=== PATIENT | female | born 1950 | race Caucasian/White ===

== ENCOUNTER → 2016-05-09 | Outpatient (CLI) | payer BC ==
[~2016-05-09] MED LIST: APIX5TAB PO; ARMOUR PO; CEFD300C3 PO; DILT180C54 PO; DILT180C84 PO; GUAI-370 PO; HYDR-3816 PO; LEVO112T55 PO; LEVO125T6 PO; METO-270 PO; RANI75TA21 PO; THYR180T2 PO; THYR30TA2 PO
--- OUTSIDE RECORDS SUMMARY | 2016-05-09 05:50 | XMS REPORT | Continuity of Care Document ---
Author Author [facility] Organization [facility] Address Unknown Phone Unavailable Care Team Providers Care Lion Trainer Name Role Phone Self, Isaak PCP [phone] Source Comments Some departments are not documenting in the electronic medical record. If you do not see the information that you expected, contact Release of Information in the Health Information Management department at [phone] for further assistance in locating additional records.[facility] Active Allergies and Adverse Reactions Allergen Noted Date Severity Reactions Comments Adhesive 03/25/2014 SEE COMMENTS takes skin off Amoxicillin 03/25/2014 HIVES Sulfa (Sulfonamide 03/25/2014 RASH Antibiotics) Current Medications Prescription Sig. Disp. Refills Start End Date Status Date thyroid (ARMOUR THYROID) Take 180 mg by mouth Active 180 mg tablet daily. 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
== END ==
LOC: LAB 05:43
PROVIDERS: ATTEND Internal Medicine Endocrinology, Diabetes & Metabolism
DX: E03.9 Hypothyroidism, unspecified (principal)
CPT/HCPCS: 36415; 84443

== ENCOUNTER 2016-07-29 10:24 | Outpatient (CLI) | payer BC ==
[~2016-07-29] VITALS: Ht 162.6 cm; Wt 119.7 kg
[~2016-07-29 10:24] MED LIST changes: -DILT180C54 PO; -HYDR-3816 PO; -LEVO125T6 PO
[2016-07-29 10:35] VITALS: BP 137/70
[2016-07-29] MEDS ORDERED: DILT180C54 PO (10:43)
[2016-07-29] MEDS ORDERED: APIX5TAB PO (10:43)
[2016-07-29] MEDS ORDERED: LEVO125T6 PO (10:43)
== END 2016-07-29 10:55 | disposition home or self-care (01) ==
LOC: PREOP 10:24
PROVIDERS: ATTEND Orthopaedic Surgery
DX: Z01.810 Encounter for preprocedural cardiovascular examination (principal); Z11.2 Encounter for screening for other bacterial diseases; M23.8X1 Other internal derangements of right knee; M23.41 Loose body in knee, right knee
CPT/HCPCS: 87081; 93005

== ENCOUNTER 2016-08-03 08:14 | Day surgery (SDC) | payer BC ==
--- NOTE | 2016-07-29 14:05 | HISTORY AND PHYSICAL ---
DATE OF SERVICE: HISTORY OF PRESENT ILLNESS: The patient is a 66-year-old female with complaints of right knee pain. She reports catching and locking in her knee. She reports swelling. She reports it has been progressive in nature to the point where it is limiting her activities of daily living. She has tried rest as well as activity modification without relief. Due to functional impairment and failure to improve with conservative measures, the patient has elected to proceed with surgical intervention. REVIEW OF SYSTEMS: No chest pain, no shortness of breath, no dysuria. PAST MEDICAL HISTORY: Urinary frequency, diarrhea, goiter, hypothyroidism, reflux. PAST SURGICAL HISTORY: x 2, tubal ligation, cholecystectomy, partial thyroidectomy, sinus surgery, knee arthroplasty, endometrial biopsy. FAMILY HISTORY: Significant for cardiovascular disease, breast cancer, diabetes, hypothyroidism. PRIMARY CARE PHYSICIAN: Dr. King in [place]. MEDICATIONS: Synthroid, Cartia, Eliquis, Zantac. ALLERGIES: AMOXICILLIN, SULFA, TAPE AND STEROIDS. SOCIAL HISTORY: The patient is a 10-pack a year smoker who quit in 1981. She drinks alcohol rarely. RADIOGRAPHS: Reveal moderate medial compartment joint space narrowing. PHYSICAL EXAMINATION: GENERAL: The patient is well-nourished, well-developed, in no acute distress. HEENT: Normocephalic, atraumatic. Pupils equal, round and reactive to light. Oropharynx is clear. NECK: Supple. No lymphadenopathy. LUNGS: Clear to auscultation bilaterally. HEART: Regular rate and rhythm. ABDOMEN: Soft, nontender, nondistended. EXTREMITIES: The patient ambulates with an antalgic gait on the right. The right knee demonstrates a moderate effusion. She is tender along the medial joint line. She has patellofemoral crepitus with range of motion of 0/4/125. No varus or valgus laxity. Negative anterior and posterior drawer. She has pain medially with Gris's maneuver. 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 PLAN: Right knee arthroscopy with chondroplasty and partial meniscectomy. The patient understands the risks, benefits, options, ramifications and recovery. Specifically, she understands this will not cure her arthritic symptoms. The patient understands and wishes to proceed. Job ID: [id number] DocumentID: [id number] Dictated Date: 07/29/2016 12:31:59 Social Service Worker Date: 07/29/2016 13:52:36 Dictated By: SANGEETHA VALLADARES MD
[~2016-08-03] VITALS: Ht 162.6 cm; Wt 119.7 kg
[~2016-08-03 08:14] MED LIST changes: +DILT180C54 PO; +LEVO125T6 PO
[2016-08-03 08:25] VITALS: BP 166/78
--- NOTE | 2016-08-03 08:29 | Progress Note-Pre Operative ---
Pre-Operative Progress Note H&P Reviewed The H&P was reviewed, patient examined and no changes noted. Date H&P Reviewed: August 03, 2016 Time H&P Reviewed: 08:29 Pre-Operative Diagnosis: RIGHT KNEE MEDIAL MENISCAL TEAR AND CHONDROMALACIA SANGEETHA VALLADARES MD August 03, 2016 08:29
--- NOTE | 2016-08-03 08:30 | Progress Note-Post Operative ---
Post-Operative Progess Note Surgeon (s)/Manager Fitness (s) Surgeon SANGEETHA VALLADARES MD Manager Fitness: Gregg Zarate Pre-Operative Diagnosis RIGHT KNEE MEDIAL MENISCAL TEAR AND CHONDROMALACIA Post-Operative Diagnosis right knee medial and lateral meniscal tears and chondromalacia of the medial femoral condyle, medial tibial plateau, lateral tibial plateau, and trochlea Procedure & Operative Findings Date of Procedure 08/03/16 Procedure Preformed/Findings right knee arthroscopic partial medial and lateral meniscectomies and chondroplasty of the medial femoral condyle, medial tibial plateau, lateral tibial plateau and trochlea Anesthesia Type GETA Estimated Blood Loss Estimated blood loss (mL): minimal Specimens/Packing Specimens Removed minimal Packing: none SANGEETHA VALLADARES MD August 03, 2016 08:30
[2016-08-03] MEDS ORDERED: fentaNYL INJECTION 100 MCG/2 ML AMP ONE ×2 (08:43→09:13)
[2016-08-03] MEDS ORDERED: FAMOTIDINE 20MG/2ML IV (PEPCID) ONE (08:44)
[2016-08-03] MEDS ORDERED: CLINDAMYCIN 600 MG/50 ML IV ONE (08:45)
[2016-08-03] MEDS: LACTATED RINGERS 1,000 ML IV PRN ×2 (08:52→10:45)
[2016-08-03] MEDS ORDERED: FAMOTIDINE 20MG/2ML IV (PEPCID) IV ONE (09:00)
[2016-08-03] MEDS ORDERED: fentaNYL INJECTION 100 MCG/2 ML AMP IV ONE (09:00)
[2016-08-03] MEDS ORDERED: MIDAZOLAM 2 MG/2 ML (VERSED) VIAL ONE (09:12)
[2016-08-03] MEDS ORDERED: proPOfol 200 MG/20 ML (DIPRIVAN) VIAL IV ONE (09:12)
[2016-08-03] MEDS ORDERED: ROCURONIUM 50 MG/5 ML (ZEMURON) VIAL IV ONE (09:12)
[2016-08-03] MEDS ORDERED: LIDOCAINE PF 2% 10 ML (XYLOCAINE) AMP ONE ×2 (09:12→10:58)
[2016-08-03] MEDS ORDERED: ONDANSETRON 4 MG/2 ML (SDV) Z0FRAN ONE (09:12)
[2016-08-03] MEDS ORDERED: LIDOCAINE JELLY 2% (XYLOCAINE) 5 ML TUBE ONE (09:12)
[2016-08-03] MEDS ORDERED: BUPIVACAINE 0.25% 30 ML (SENSORCAINE) VIAL ONE (09:20)
[2016-08-03] MEDS ORDERED: morphine PF (DURAMORPH) 10 MG/10 ML AMP ONE (09:20)
[2016-08-03] MEDS ORDERED: LACTATED RINGERS 1,000 ML IV ONE (10:41)
[2016-08-03] MEDS ORDERED: HYDROcodone/APAP 7.5 MG/325 MG (LORTAB, LORCET PLUS) TABLET PO PRN (10:45)
[2016-08-03] MEDS ORDERED: morphine INJ 10 MG/ML 1ML (SYR OR VIAL) ONE (10:50)
[2016-08-03] MEDS ORDERED: SEVOFLURANE (ULTANE) 15 ML INHAL SOLN ONE (10:58)
[2016-08-03 12:05] VITALS: BP 126/70
[2016-08-03 12:35] VITALS: BP 136/70
[2016-08-03] MEDS ORDERED: HYDR-3816 PO (12:51)
[2016-08-03 13:05] VITALS: BP 131/73
--- NOTE | 2016-08-03 14:09 | OPERATIVE REPORT ---
DATE OF SERVICE: PREOPERATIVE DIAGNOSES: 1. Right knee medial meniscal tear. 2. Right knee chondromalacia of the medial femoral condyle. 3. Right knee chondromalacia of the medial tibial plateau. POSTOPERATIVE DIAGNOSES: 1. Right knee medial meniscal tear. 2. Right knee chondromalacia of the medial femoral condyle. 3. Right knee chondromalacia of the medial tibial plateau. 4. Right knee chondromalacia of the lateral tibial plateau. 5. Right knee chondromalacia of the trochlea. 6. Right knee lateral meniscal tear. PROCEDURES: 1. Right knee arthroscopic partial medial meniscectomy. 2. Right knee arthroscopic partial lateral meniscectomy. 3. Right knee arthroscopic chondroplasty of the medial femoral condyle. 4. Right knee arthroscopic chondroplasty of the medial tibial plateau. 5. Right knee arthroscopic chondroplasty of the lateral tibial plateau. 6. Right knee arthroscopic chondroplasty of the trochlea. SURGEON: Carl Valladares MD. VENEER REDRIER: Gregg Zarate, who assisted throughout the procedure and closed the incisions. ANESTHESIA: General endotracheal by Faby Roth CRNA. TOURNIQUET TIME: Not applicable. ESTIMATED BLOOD LOSS: Minimal. DRAINS: None. COMPLICATIONS: None. POSTOPERATIVE PLAN: Routine arthroscopy protocol. The patient was transported to the recovery room awake and in stable condition. STATEMENT OF MEDICAL NECESSITY: The patient is a 66-year-old female with the complaints of right knee pain, catching, locking and swelling. She has a large effusion. She was tender along the medial joint line and had pain medially with Gris's. Radiographs revealed medial joint space narrowing. The patient understood that an arthroscopy would not fully alleviate her arthritic symptoms, but could help with her mechanical symptoms. Due to failure to improve with conservative measures, patient elected to proceed with surgical intervention. EXAMINATION UNDER ANESTHESIA: Revealed range of motion 0/0/130, negative lock, negative anterior and posterior drawer, no varus or valgus laxity, negative pivot shift. ARTHROSCOPIC FINDINGS: The patella demonstrated diffuse grade 2-3 chondral loss with no unstable chondral flaps. The trochlea demonstrating grade 4 chondral flap centrally in a 5x10 area. The medial and lateral gutters were clear. The lateral compartment demonstrated a degenerative tear of the posterior horn of the meniscus involving approximately 20% of the posterior horn and grade 2 chondral flap centrally in an 8x8 area. The ACL and PCL were intact. The medial compartment demonstrated a complex horizontal tear of the posterior horn of the medial meniscus involving approximately 1/2 of the posterior horn, in addition to a grade 3-4 chondral flap centrally over the femoral condyle in a 15x15 area and over the central portion of the tibial plateau in a 10x15 area. PROCEDURE: After risks and benefits of procedure were discussed and questions were answered, informed consent was signed and placed on the chart. The operative site was confirmed in the preoperative holding area and initialed by the surgeon. The patient was then transported to the operating room, and after adequate levels of general endotracheal anesthetic were obtained, a timeout was called confirming the operative site and examination under anesthesia was performed with the above findings noted. The right lower extremity was prepped and draped in usual sterile fashion. The knee was injected with 60 mL of fluid, and a standard inferior lateral portal was placed for the arthroscope and inflow cannula. Under direct visualization, an inferior medial portal was created and a diagnostic arthroscopy was carried out with the above findings noted. The unstable chondral flaps in the trochlea were debrided with the shaver back to a stable edge. The scope was then redirected into the lateral compartment where the unstable chondral flaps and the lateral tibial plateau were debrided with the shaver back to a stable edge and the posterior horn of the lateral meniscus was debrided with the shaver and a biter removing approximately 20% of the posterior horn. This was carefully probed with no further tearing or instability noted. The scope was then redirected into the medial compartment where the posterior horn of the medial meniscus was debrided with a biter and shaver removing approximately 1/2 of the posterior horn. This was carefully probed with no further tearing or instability noted. The unstable chondral flaps on the medial femoral condyle and medial tibial plateau were debrided with the shaver back to a stable edge. The knee was copiously irrigated. The port sites were closed with 3-0 nylon in a simple interrupted fashion. The knee was injected with Duramorph. A soft dressing was applied and the patient was transported to the recovery room awake and in stable condition. Job ID: [id number] DocumentID: [id number] Dictated Date: 08/03/2016 11:05:53 Marketing Services Specialist Date: 08/03/2016 13:23:45 Dictated By: CALR VALLADARES MD
--- NOTE | 2016-08-03 14:44 | Physical Therapy Ortho Eval ---
PT Orthopedic Evaluation Type of Surgery Knee Scope right side Prior Level of Function Current Living Status: Spouse Locomotion (Upon Admit): Independent Established Durable Medical Eq: Front Wheeled Walker Subjective Subjective Patient in bed pre tx, agrees to PT, states her right leg is mostly numb but would rate pain at 2/10. Patient states she is fairly nauseated. Entry Into Home: Stairs With Railing Steps Into Home: 4 Objective Objective right knee extension +5 degrees, flexion 80 degrees Motor Control Motor Control: Motor Control WNL ROM see above Strength NT Transfer Transfers (B, C, W/C) (FIM): 4 Gait Gait Assistive Device: FWW Weight Bearing Restriction: Weight Bearing/Tolerated Location Restriction: R LE Gait (FIM): 2 Distance: 50' Gait Level of Assist: 4 Summary/Comments Patient was nauseated during ambulation and vomited several times, she also needed to use the restroom and vomited in there too in addition to urinating. Patient declined stairs at this time, she stated that she just wants to get back to bed right now. Treatment Rendered Treatment: Therapeutic Exercises, Gait Train, Use of Ice Exercise Instruction: Quad Sets, Heel Slides, Ankle Pumps Assessment/Goals Goal Time Frame: 1 Visit Plan Treatment Plan: Discharge PT/Family Agrees to Plan: Yes Time Time In: 1410 Time Out: 1435 Total Billed Treatment Time: 25 Billed Treatment Time 1 visit EVL 15' GT 10' Yes PT/OT Therapy GCodes Therapy Functional Limitation: Physical Therapy Test(s)/Tool used to determine: Level of Assistance Scale Functional Limitation-Current Charge Code: MOBCUR Modifier: CI Functional Limitation-Goal Charge Code: MOBGOAL Modifier: CI Functional Limitation-D/C Charge Codes: MOBDC Modifier: CI BEN WYATT PT August 03, 2016 14:44
== END 2016-08-03 15:25 | disposition home or self-care (01) ==
LOC: SDC 08:14
PROVIDERS: ATTEND Orthopaedic Surgery
DX: M23.8X1 Other internal derangements of right knee (principal); M94.261 Chondromalacia, right knee; I10 Essential (primary) hypertension; I48.91 Unspecified atrial fibrillation; E03.9 Hypothyroidism, unspecified; K21.9 Gastro-esophageal reflux disease without esophagitis; Z87.891 Personal history of nicotine dependence; Z79.899 Other long term (current) drug therapy

== ENCOUNTER 2017-02-16 09:02 | Emergency (ER) | payer BC ==
[~2017-02-16] VITALS: Ht 71.1 cm; Wt 119.3 kg
[~2017-02-16 09:02] MED LIST changes: +HYDR-3816 PO; -METO-270 PO; +METO-387 PO
[2017-02-16 09:48] LABS: BASOPHILS % (AUTO) 0 % (0-10); EOSINOPHILS # (AUTO) 0.1 10^3/uL (0.0-0.3); EOSINOPHILS % (AUTO) 2 % (0-10); LYMPHOCYTES # (AUTO) 1.4 X 10^3 (1.0-4.0); LYMPHOCYTES % (AUTO) 29 % (12-44); MEAN CORPUSCULAR HEMOGLOBIN 28 PG (25-34); MEAN CORPUSCULAR HGB CONC 35 G/DL (32-36); MEAN CORPUSCULAR VOLUME 81 FL (80-99); MEAN PLATELET VOLUME 9.4 FL (7.4-10.4); MONOCYTES # (AUTO) 0.4 X 10^3 (0.0-1.0); MONOCYTES % (AUTO) 8 % (0-12); NEUTROPHILS # (AUTO) 2.9 X 10^3 (1.8-7.8); NEUTROPHILS % (AUTO) 61 % (42-75); PLATELET COUNT 215 10^3/uL (130-400); RED BLOOD COUNT 5.19 10^6/uL (4.35-5.85); RED CELL DISTRIBUTION WIDTH 13.1 % (10.0-14.5); WHITE BLOOD COUNT 4.8 10^3/uL (4.3-11.0)
[2017-02-16 10:00] LABS: BILIRUBIN,URINE NEGATIVE (NEGATIVE); KETONES,URINE NEGATIVE (NEGATIVE); LEUKOCYTE ESTERASE ,URINE NEGATIVE (NEGATIVE); NITRITE,URINE NEGATIVE (NEGATIVE); PH,URINE 5 (5-9); PROTEIN,URINE NEGATIVE (NEGATIVE); UROBILINOGEN,URINE NORMAL (NORMAL)
[2017-02-16 10:08] LABS: WBC,URINE RARE /HPF
[2017-02-16 10:13] LABS: ALANINE AMINOTRANSFERASE 19 U/L (0-55); AMYLASE 42 U/L (25-125); ANION GAP 8 MMOL/L (5-14); ASPARTATE AMINO TRANSFERASE 15 U/L (5-34); BILIRUBIN,TOTAL 1.2 MG/DL (0.1-1.0); BLOOD UREA NITROGEN 11 MG/DL (7-18); BUN/CREATININE RATIO 14; CALCIUM 8.9 MG/DL (8.5-10.1); CARBON DIOXIDE 24 MMOL/L (21-32); CHLORIDE 108 MMOL/L (98-107); CREATININE SERUM 0.81 MG/DL (0.60-1.30); GFR ESTIMATED > 60; GLUCOSE 104 MG/DL (70-105); LIPASE 11 U/L (8-78); POTASSIUM 4.1 MMOL/L (3.6-5.0); SODIUM 140 MMOL/L (135-145); TOTAL PROTEIN 6.9 GM/DL (6.4-8.2)
[2017-02-16] MEDS ORDERED: IOHEXOL 350 MG/ML 100 ML (OMNIPAQUE 350) VIAL IV ONE (10:45)
[2017-02-16] MEDS ORDERED: NS 100 ML (IVPB) BAG IV ONE (10:45)
--- NOTE | 2017-02-16 11:12 | Diagnostic Imaging Report ---
INDICATION: Right lower quadrant pain. 3 views were obtained. FINDINGS: The lung bases are clear. Bowel gas pattern is nonspecific. There is no free air. There are no abnormal abdominal calcifications. There are degenerative changes in the spine. There is moderate amount of retained fecal material which may reflect some degree of constipation. IMPRESSION: Moderate amount of retained fecal material which may reflect some degree of constipation otherwise nonspecific bowel gas pattern. Dictated by: Dictated on workstation # [id number]
--- NOTE | 2017-02-16 11:51 | Diagnostic Imaging Report ---
PROCEDURE: CT abdomen and pelvis with contrast, rule out appendicitis. TECHNIQUE: Multiple contiguous axial images were obtained through the abdomen and pelvis after the administration of intravenous contrast. INDICATION: Right lower quadrant pain. FINDINGS: The heart size is normal. There is minimal scarring in the right lung base. There is no pleural or pericardial fluid. The liver is normal in size and without focal lesions. Gallbladder appears to be surgically absent. Spleen is unremarkable. The pancreas and adrenal glands are unremarkable. The kidneys are normal in appearance. The abdominal aorta is nonaneurysmal. Bowel gas pattern is nonspecific. The appendix is not well visualized, although there is no definitive CT evidence of appendicitis. There does appear to be some lipomatous infiltration of the ileocecal valve, which is generally an incidental finding. There is mild diverticular disease without evidence of diverticulitis. There is no free air. There is no ascites. There are no focal inflammatory changes. The aorta is nonaneurysmal. There are degenerative changes in the spine. There is no pelvic mass, adenopathy, or free fluid. The bladder is unremarkable. IMPRESSION: No CT evidence of appendicitis. Diverticular disease without evidence of diverticulitis. Degenerative changes in the spine. Dictated by: Dictated on workstation # [id number]
[2017-02-16] MEDS ORDERED: KETOROLAC 30 MG/ML VIAL IVP ONE (12:15)
[2017-02-16] MEDS ORDERED: TRAM-42 PO (12:22)
--- NOTE | 2017-02-16 12:23 | ED Abdominal Pain ---
General Chief Complaint: General Problems/Pain Stated Complaint: RT SIDE PAIN Nursing Triage Note: AMB TO ROOM TALKING AND LAUGHING C/O R SIDE SINCE LAST NIGHT NOT TAKNE ANY OTC PAIN MEDS .PAIN WORSE WITH MOVING Sepsis Screen: No Definite Risk Allergies and Home Medications Allergies Coded Allergies: Penicillins (Verified Allergy, Unknown, 05/15/15) Sulfa (Sulfonamide Antibiotics) (Verified Allergy, Unknown, 05/15/15) Uncoded Allergies: STEROIDS (Allergy, Unknown, 05/15/15) RED AND FLUSHED Home Medications Apixaban 5 Mg Tablet, 5 MG PO BID, (Reported) Diltiazem HCl 180 Mg Cap.er.24h, 180 MG PO DAILY, (Reported) Hydrocodone/Acetaminophen 1 Each Tablet, 1 EACH PO Q4H, #30 Prescribed by: KAEL LEE on 08/03/16 1251 Levothyroxine Sodium 125 Mcg Tablet, 125 MCG PO DAILY, (Reported) Ranitidine HCl 75 Mg Tablet, 75 MG PO HS, (Reported) Past Vjxhjhr-Onrjlh-Mgpadn Hx Patient Social History Alcohol Use: Denies Use Recreational Drug Use: No Smoking Status: Never a Smoker Former Smoker, Quit: July 29, 1982 Recent Foreign Travel: No Contact w/Someone Who Travel: No Recent Infectious Disease Expo: No Recent Hopitalizations: No Immunizations Up To Date Tetanus Booster (TDap): Less than 5yrs Seasonal Allergies Seasonal Allergies: No Surgeries History of Surgeries: Yes (2 CSECTIONS; KNEE ATHROSCOPY; SEPTUM REPAIR, D&C) Surgeries: Section, Ear Surgery, Gallbladder, Orthopedic, Thyroidectomy Respiratory History of Respiratory Disorde: No (possible sleep apnea) Cardiovascular History of Cardiac Disorders: Yes Cardiac Disorders: Atrial Fibrillation, Hypertension Neurological History of Neurological Disord: No 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 System Hx 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 Disorders: No 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 Gastrointestinal History of Gastrointestinal Di: Yes Gastrointestinal Disorders: Gastroesophageal Reflux, Diverticulosis Musculoskeletal History of Musculoskeletal Dis: Yes (BONE SPURS, R knee) Musculoskeletal Disorders: Chronic Back Pain Endocrine History of Endocrine Disorders: Yes (thyroidectomy) Endocrine Disorders: Hypothyroidsim HEENT HEENT Disorders: Chronic Ear Infection Hearing Impairment: Deaf Cancer History of Cancer: No Psychosocial History of Psychiatric Problem: No Integumentary History of Skin or Integumenta: No Blood Transfusions History of Blood Disorders: No Family Medical History Family Medial History: Arthritis 19 MOTHER Cardiovascular disease 19 MOTHER Completed stroke 19 FATHER 19 MOTHER Diabetes mellitus 19 MOTHER G8 BROTHER Fibrocystic disease of breast G8 SISTER Respiratory disorder G8 BROTHER (Sleep Apnea) Physical Exam Vital Signs VS - Last 72 Hours, by Label 02/16/17 09:06 Temp 98.0 Pulse 74 Resp 18 B/P (MAP) 146/80 O2 Delivery Room Air Capillary Refill : Less Than 3 Seconds Progress/Results/Core Measures Results/Orders Lab Results Laboratory Tests Test 02/16/17 09:42 02/16/17 09:54 Range/Units White Blood Count 4.8 4.3-11.0 10^3/uL Red Blood Count 5.19 4.35-5.85 10^6/uL Hemoglobin 14.6 11.5-16.0 G/DL Hematocrit 42 35-52 % Mean Corpuscular Volume 81 80-99 FL Mean Corpuscular Hemoglobin 28 25-34 PG Mean Corpuscular Hemoglobin Concent 35 32-36 G/DL Red Cell Distribution Width 13.1 10.0-14.5 % Platelet Count 215 130-400 10^3/uL Mean Platelet Volume 9.4 7.4-10.4 FL Neutrophils (%) (Auto) 61 42-75 % Lymphocytes (%) (Auto) 29 12-44 % Monocytes (%) (Auto) 8 0-12 % Eosinophils (%) (Auto) 2 0-10 % Basophils (%) (Auto) 0 0-10 % Neutrophils # (Auto) 2.9 1.8-7.8 X 10^3 Lymphocytes # (Auto) 1.4 1.0-4.0 X 10^3 Monocytes # (Auto) 0.4 0.0-1.0 X 10^3 Eosinophils # (Auto) 0.1 0.0-0.3 10^3/uL Basophils # (Auto) 0.0 0.0-0.1 10^3/uL Sodium Level 140 135-145 MMOL/L Potassium Level 4.1 3.6-5.0 MMOL/L Chloride Level 108 H 98-107 MMOL/L Carbon Dioxide Level 24 21-32 MMOL/L Anion Gap 8 5-14 MMOL/L Blood Urea Nitrogen 11 7-18 MG/DL Creatinine 0.81 0.60-1.30 MG/DL Estimat Glomerular Filtration Rate > 60 BUN/Creatinine Ratio 14 Glucose Level 104 70-105 MG/DL Calcium Level 8.9 8.5-10.1 MG/DL Total Bilirubin 1.2 H 0.1-1.0 MG/DL Aspartate Amino Transf (AST/SGOT) 15 5-34 U/L Alanine Aminotransferase (ALT/SGPT) 19 0-55 U/L Alkaline Phosphatase 70 40-136 U/L Total Protein 6.9 6.4-8.2 GM/DL Albumin 4.0 3.2-4.5 GM/DL Amylase Level 42 25-125 U/L Lipase 11 8-78 U/L Urine Color YELLOW Urine Clarity CLEAR Urine pH 5 5-9 Urine Specific [place] 1.020 1.016-1.022 Urine Protein NEGATIVE NEGATIVE Urine Glucose (UA) NEGATIVE NEGATIVE Urine Ketones NEGATIVE NEGATIVE Urine Nitrite NEGATIVE NEGATIVE Urine Bilirubin NEGATIVE NEGATIVE Urine Urobilinogen NORMAL NORMAL MG/DL Urine Leukocyte Esterase NEGATIVE NEGATIVE Urine RBC (Auto) NEGATIVE NEGATIVE Urine RBC NONE /HPF Urine WBC RARE /HPF Urine Squamous Epithelial Cells 2-5 /HPF Urine Crystals NONE /LPF Urine Bacteria FEW H /HPF Urine Casts NONE /LPF Urine Mucus NEGATIVE /LPF Urine Culture Indicated NO My Orders Orders - PEDRO CRAIG DO Saline Lock/Iv-Start (02/16/17 09:19) Amylase (02/16/17 09:19) Cbc With Automated Diff (02/16/17 09:19) Comprehensive Metabolic Panel (02/16/17 09:19) Lipase (02/16/17 09:19) Ua Culture If Indicated (02/16/17 09:19) Ct Abd/Pelv W (Appendicitis) (02/16/17 10:25) Abdomen, Flat & Upright/Decub (02/16/17 10:25) Iohexol Injection (Omnipaque 350 Mg/Ml 1 (02/16/17 10:45) Ns (Ivpb) (Sodium Chloride 0.9% Ivpb Bag (02/16/17 10:45) Pharmacy Communication (Pharmacy Communi (02/16/17 10:34) Ketorolac Injection (Toradol Injection) (02/16/17 12:15) Medications Given in ED Current Medications Medications Dose Ordered Sig/Tatyana Route Start Time Stop Time Status Last Admin Dose Admin Iohexol 100 ml ONCE ONCE IV 02/16/17 10:45 02/16/17 10:46 DC 02/16/17 10:52 100 ML Sodium Chloride 100 ml ONCE ONCE IV 02/16/17 10:45 02/16/17 10:46 DC 02/16/17 10:52 80 ML Vital Signs/I&O Vital Sign - Last 12Hours 02/16/17 09:06 Temp 98.0 Pulse 74 Resp 18 B/P (MAP) 146/80 O2 Delivery Room Air Blood Pressure Mean: 102 Departure Impression Impression: Primary Impression: RLQ abdominal pain Disposition: 01 HOME, SELF-CARE Departure-Patient Inst. Referrals: SELFMATTHIEU MD (PCP/Family) Primary Care Physician Patient Instructions: Acute Abdomen (Belly Pain), Adult (DC) Add. Discharge Instructions: CLEAR LIQUIDS--WATER, BROTH, JELLO, GATORADE NO FOOD UNTIL YOUR PAIN IS BETTER FOLLOW UP WITH YOUR DR ON MONDAY IF NO BETTER RETURN TO ER IF WORSE All discharge instructions reviewed with patient and/or family. Voiced understanding. Scripts Tramadol HCl (Ultram) 50 Mg Tablet 50 MG PO Q4H, #20 TAB Prov: PEDRO CRAIG DO 02/16/17 PEDRO CRAIG DO Feb 16, 2017 12:23
[2017-02-16] MEDS ORDERED: RX-TRAMADOL 50 MG (ULTRAM) TAB PPK#4 PO STA (12:24)
[2017-02-16 12:30] VITALS: BP 136/75
--- OUTSIDE RECORDS SUMMARY | 2017-02-16 15:07 | XMS REPORT | Clinical Summary ---
Author Author [facility] Organization [facility] Address Unknown Phone Unavailable Care Team Providers Care Deployment Engineer Name Role Phone PCP Unavailable Source Comments Some departments are not documenting in the electronic medical record. If you do not see the information that you expected, contact Release of Information in the Health Information Management department at [phone] for further assistance in locating additional records.[facility] Allergies Active Allergy Reactions Severity Noted Date Comments Adhesive SEE COMMENTS 03/25/2014 takes skin off Amoxicillin HIVES 03/25/2014 Sulfa (Sulfonamide RASH 03/25/2014 Antibiotics) Current Medications Prescription Sig. Disp. Refills Start End Date Status Date thyroid (ARMOUR THYROID) Take 180 mg by mouth Active 180 mg tablet daily. Active Problems Problem Noted Date Thyroid nodule 03/25/2014 Family History Medical History Relation Name Comments Diabetes Brother Stroke Father Cancer-Colon Maternal Grandmother Cancer-Ovarian Maternal Grandmother Diabetes Maternal Grandmother Diabetes Maternal Uncle Arthritis-rheumatoid Mother Diabetes Mother Stroke Mother Thyroid Disease Mother Asthma Paternal Grandmother Arthritis-osteo Sister Cancer-Breast Sister Cancer-Ovarian Sister Relation Name Status Comments Brother Alive Father Maternal Grandmother Maternal Uncle Mother Paternal Grandmother Sister Alive Social History Tobacco Use Types Packs/Day Years Used Date Former Smoker Cigarettes 1 5 Alcohol Use Drinks/Week oz/Week Comments No Sex Assigned at Date Recorded Not on file Last Filed Vital Signs Vital Sign Reading Time Taken Blood Pressure 188/89 03/25/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 Pulse 88 03/25/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 Temperature 36.9 C (98.5 F) 03/25/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 Respiratory Rate 20 03/25/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 Oxygen Saturation 99% 03/25/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 Inhaled Oxygen - - Concentration Weight 122 kg (269 lb) 03/25/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 Height - - Body Mass Index - - Plan of Treatment Health Maintenance Due Date Last Done Comments HEPATITIS C SCREENING 1950 PHYSICAL (COMPREHENSIVE) 1957 EXAM PERTUSSIS VACCINE 1961 TETANUS VACCINE 06/03/1967 BREAST CANCER SCREENING 1990 COLORECTAL CANCER 2000 SCREENING SHINGLES VACCINE 2010 OSTEOPOROSIS SCREENING 06/03/2015 PREVNAR/PNEUMOVAX (#1) 06/03/2015 INFLUENZA VACCINE 10/25/2016 Results Not on filefrom Last 3 Months
== END 2017-02-16 12:32 | disposition home or self-care (01) ==
LOC: EDUNIT# 09:02 → ER 09:04
DX: R10.31 Right lower quadrant pain (principal); I48.91 Unspecified atrial fibrillation; I10 Essential (primary) hypertension; K21.9 Gastro-esophageal reflux disease without esophagitis; E03.9 Hypothyroidism, unspecified; Z82.49 Family history of ischemic heart disease and other diseases of the circulatory system; Z87.19 Personal history of other diseases of the digestive system; Z98.51 Tubal ligation status; Z79.01 Long term (current) use of anticoagulants; Z87.59 Personal history of other complications of pregnancy, childbirth and the puerperium; Z90.89 Acquired absence of other organs
CPT/HCPCS: 36415; 74020; 74177; 80053; 81000; 82150; 83690; 85025; 99283

== ENCOUNTER → 2018-05-11 | Outpatient (CLI) | payer MEDICARE ==
[~2018-05-11] VITALS: Ht 162.6 cm; Wt 122.0 kg
[~2018-05-11] MED LIST changes: +HYDR-34 PO; -HYDR-3816 PO; +REGADENOSON 0.4 MG/5 ML SYR (LEXISCAN) IV ONE; +TRAM-42 PO
[2018-05-11] MEDS: CATHETER FLUSH 10 ML SYR IV PRN ×2 (07:42→08:52)
[2018-05-11 08:50] VITALS: BP 174/89
== END ==
LOC: CARD 07:30
PROVIDERS: ATTEND Nurse Practitioner Family
DX: I48.0 Paroxysmal atrial fibrillation (principal); E66.09 Other obesity due to excess calories; Z98.890 Other specified postprocedural states
CPT/HCPCS: 78452; 93017

== ENCOUNTER 2018-07-13 19:52 | Emergency (ER) | payer MEDICARE ==
[~2018-07-13] VITALS: Ht 162.6 cm; Wt 120.2 kg
[~2018-07-13 19:52] MED LIST changes: -REGADENOSON 0.4 MG/5 ML SYR (LEXISCAN) IV ONE
--- OUTSIDE RECORDS SUMMARY | 2018-07-13 19:59 | XMS REPORT | Clinical Summary ---
Author Author [facility] Organization [facility] Address Unknown Phone Unavailable Care Team Providers Care Fixer Boarding Room Name Role Phone Self, Isaak STRAUSS PCP Unavailable Self, Referral 21 Unavailable DipLico hemphill MD Unavailable Source Comments Some departments are not documenting in the electronic medical record. If you do not see the information that you expected, contact Release of Information in the Health Information Management department at [phone] for further assistance in locating additional records.[facility] Allergies Comments Active Allergy Reactions Severity Noted Date takes skin off Adhesive SEE COMMENTS 03/25/2014 Amoxicillin HIVES 03/25/2014 Sulfa (Sulfonamide RASH 03/25/2014 Antibiotics) Medications End Date Status Medication Sig Dispensed Refills Start Date Active SYNTHROID 125 mcg tablet 1 8 Active CARTIA XT 180 mg capsule 6 8 Active ELIQUIS 5 mg tablet 5 8 Active aspirin EC 81 mg tablet 81 mg daily. 0 Active Problems Problem Noted Date Sensorineural hearing loss, bilateral 09/26/2017 Chronic serous otitis media of right ear 09/04/2017 Thyroid nodule 03/25/2014 Resolved Problems Problem Noted Date Resolved Date Mixed conductive and sensorineural hearing loss of right ear with 201709/26/2017 restricted hearing of left ear Encounters Care Team Description Date Type Specialty Storm Stout MD Other 05/14/2018 Telephone Otolaryngology from Last 3 Months Family History Medical History Relation Name Comments Diabetes Brother Stroke Father Cancer-Colon Maternal Grandmother Cancer-Ovarian Maternal Grandmother Diabetes Maternal Grandmother Diabetes Maternal Uncle Arthritis-rheumatoid Mother Diabetes Mother Stroke Mother Thyroid Disease Mother Asthma Paternal Grandmother Arthritis-osteo Sister Cancer-Breast Sister Cancer-Ovarian Sister Relation Name Status Comments Brother Alive Father Maternal Grandmother Maternal Uncle Mother Paternal Grandmother Sister Alive Social History Date Tobacco Use Types Packs/Day Years Used Former Smoker Cigarettes 1 5 Smokeless Tobacco: Never Used Alcohol Use Drinks/Week oz/Week Comments No Sex Assigned at Date Recorded Not on file Industry Job Start Date Occupation Not on file Not on file Not on file Travel End Travel History Travel Start No recent travel history available. Last Filed Vital Signs Time Taken Vital Sign Reading 04/02/2018 10:48 AM [employer] Blood Pressure 137/83 04/02/2018 10:48 AM [employer] Pulse 85 03/25/2014 11:06 AM [employer] Temperature 36.9 C (98.5 F) 03/25/2014 11:06 AM [employer] Respiratory Rate 20 03/25/2014 11:06 AM [employer] Oxygen Saturation 99% - Inhaled Oxygen - Concentration 09/22/2017 1:38 PM CDT Weight 119.7 kg (264 lb) 09/22/2017 1:38 PM CDT Height 162.6 cm (5' 4") 09/22/2017 1:38 PM CDT Body Mass Index 45.32 Plan of Treatment Health Maintenance Due Date Last Done Comments HEPATITIS C SCREENING 1950 PHYSICAL (COMPREHENSIVE) 1957 EXAM DTAP/TDAP VACCINES (1 - 1968 Tdap) BREAST CANCER SCREENING 1990 COLORECTAL CANCER 2000 SCREENING SHINGLES RECOMBINANT 2000 VACCINE (1 of 2) OSTEOPOROSIS 06/03/2015 SCREENING/MONITORING PNEUMONIA (PCV13/PPSV23) 06/03/2015 VACCINES (1 of 2 - PCV13) INFLUENZA VACCINE 10/25/2018 Results Not on filefrom Last 3 Months Insurance Type Payer Benefit Subscriber ID Effective Phone Address Plan / Dates Group Medicare MEDICARE MEDICARE xxxxxxxxxxx 2015-P PART A AND resent B Medicare BCBS CB BCBS xxxxxxxxxxxx 2018-P SUPPLEMENT resent Advance Directives Patient has advance care planning documents on file. For more information, please contact: [address] [place] [address]
--- OUTSIDE RECORDS SUMMARY | 2018-07-13 19:59 | XMS REPORT | Encounter Summary ---
Author Author [facility] Organization [facility] Address Unknown Phone Unavailable Care Team Providers Care Deposit Refund Clerk Name Role Phone Self, Isaak STRAUSS PCP Unavailable Self, Referral 21 Unavailable Lico Padron MD Unavailable Reason for Visit * Reason Comments Other Encounter Details Care Team Description Date Type Department Storm Stout MD [address] [facility] [address] [place] [address] Other 05/14/2018 Telephone [facility] [address] [place] [address] Social History Date Tobacco Use Types Packs/Day Years Used Former Smoker Cigarettes 1 5 Smokeless Tobacco: Never Used Alcohol Use Drinks/Week oz/Week Comments No Sex Assigned at Date Recorded Not on file Industry Job Start Date Occupation Not on file Not on file Not on file Travel End Travel History Travel Start No recent travel history available. documented as of this encounter Miscellaneous Notes * Telephone Encounter - Lucia Short LPN - 05/14/2018 2:50 PM [employer] Call center to call pt back [employer] * Telephone Encounter - Carlita Damon - 05/14/2018 1:47 PM [employer] PT requesting tube type to be clarified if plastic or metal prior to her MRI today at 4:00pm, call [phone]. [employer] documented in this encounter Plan of Treatment Not on filedocumented as of this encounter Visit Diagnoses Not on filedocumented in this encounter
--- OUTSIDE RECORDS SUMMARY | 2018-07-13 19:59 | XMS REPORT ---
Author Author MATTHIEU HORNER [facility] Address [address] [place] [address] Care Team Providers Care Knit Tubing Dyer Name Role Phone MATTHIEU HORNER Unavailable PROBLEMS Type Condition ICD9-CM Code SPB96-DI Code Onset Dates Condition Status SNOMED Code Problem Hypothyroidism (acquired) E03.9 Active 39099271 Problem Metabolic syndrome E88.81 Active 071073942 Problem Obesity E66.9 Active 764358226 Problem Acquired hypothyroidism E03.9 Active 698133888 Problem Lymphadenopathy of head and neck region R59.0 Active 62362134 Problem Paroxysmal a-fib I48.0 Active 23937071 Problem Hyperlipemia, mixed E78.2 Active 433905936 Problem Thyroid nodule E04.1 Active 213724503 ALLERGIES No Information ENCOUNTERS Encounter Location Date Diagnosis [address] [address] May, Acquired hypothyroidism E03.9 ; Metabolic syndrome E88.81 and Hyperlipemia, mixed E78.[address] [address] May, [address] [address] May, Hyperglycemia R73.9 and Acquired hypothyroidism E03.9 IMMUNIZATIONS No Known Immunizations SOCIAL HISTORY Never Assessed REASON FOR VISIT Lab results PLAN OF CARE VITAL SIGNS MEDICATIONS Unknown Medications RESULTS No Results PROCEDURES No Known procedures INSTRUCTIONS MEDICATIONS ADMINISTERED No Known Medications MEDICAL (GENERAL) HISTORY Type Description Date Medical History Hypothyroidism (acquired) Medical History Obesity Medical History Paroxysmal a-fib Medical History Lymphadenopathy of head and neck region Medical History Thyroid nodule Surgical History section Surgical History cholecystectomy Surgical History septoplasty Surgical History tubal ligation Surgical History left knee arthroscopy Surgical History right knee arthroscopy Surgical History thyroidectomy Surgical History myringotomy with ventilating tube
--- OUTSIDE RECORDS SUMMARY | 2018-07-13 19:59 | XMS REPORT ---
Author [facility] Address [address] [place] [address] Care Team Providers Care Hris Administrator Name Role Phone EMELYN HORNERWELL Unavailable PROBLEMS Type Condition ICD9-CM Code VYA74-NS Code Onset Dates Condition Status SNOMED Code Problem Acquired hypothyroidism E03.9 Active 044936972 ALLERGIES No Information ENCOUNTERS Encounter Location Date Diagnosis [address] [address] May, [address] [address] May, [address] [address] May, Hyperglycemia R73.9 and Acquired hypothyroidism E03.9 IMMUNIZATIONS No Known Immunizations SOCIAL HISTORY Never Assessed REASON FOR VISIT Lab (walk-in) PLAN OF CARE VITAL SIGNS MEDICATIONS Unknown Medications RESULTS No Results PROCEDURES Procedure Date Ordered Result Body Site VENIPUNCT, ROUTINE* May 30, 2018 Hemoglobin Test Send Out 0 dollar May 30, 2018 LAB NOT BILLED BY [facility] May 30, 2018 INSTRUCTIONS MEDICATIONS ADMINISTERED No Known Medications
--- OUTSIDE RECORDS SUMMARY | 2018-07-13 20:00 | XMS REPORT | Continuity of Care Document ---
Author Organization Unknown Address Unknown Allergies Active Description Code Type Severity Reaction Onset Reported/Identified Relationship to Patient Clinical Status Yes Penicillins [id number] Drug Allergy Unknown N/A 05/15/2015 Yes STEROIDS STEROIDS Unknown N/A 05/15/2015 Yes Sulfa (Sulfonamide Antibiotics) [id number] Drug Allergy Unknown N/A 2015 Medications There is no data. 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 05/16/2015 PETERSON DO, RADHA Ot E66.9 OBESITY, UNSPECIFIED 05/16/2015 PETERSON DO, RADHA Ot G47.33 OBSTRUCTIVE SLEEP APNEA (ADULT) (PEDIATR 05/16/2015 PETERSON DO, RADHA Ot I10 ESSENTIAL (PRIMARY) HYPERTENSION 05/16/2015 PETERSON DO RADHA Ot I48.91 UNSPECIFIED ATRIAL FIBRILLATION 05/16/2015 PETERSON DO RADHA Ot K21.9 GASTRO-ESOPHAGEAL REFLUX DISEASE WITHOUT 05/16/2015 PETERSON DO, RADHA Ot R05 COUGH 05/16/2015 PETERSON DO, RADHA Ot Z68.42 BODY MASS INDEX (BMI) 45.0-49.9, ADULT 05/16/2015 PETERSON DO RADHA Ot Z87.891 PERSONAL HISTORY OF NICOTINE DEPENDENCE 05/20/2015 SERVANDO STRAUSS, BALBIR Bolaños Ot 719.45 05/20/2015 ANKUR LACEY DPM Ot 729.5 05/20/2015 ANKUR LACEY DPM Ot 782.2 05/20/2015 YARITZA SINGH DO Ot I48.91 UNSPECIFIED ATRIAL FIBRILLATION 07/08/2015 Ot E05.80 07/08/2015 Ot I48.91 07/08/2015 Ot Z79.01 07/29/2015 SERVANDO SRTAUSS, BALBIR Bolaños Ot 719.45 JOINT PAIN-PELVIS 07/29/2015 BLANCHO DPM, ANKUR Cardoso Ot 729.5 PAIN IN LIMB 07/29/2015 BLANCHO DPM, ANKUR Cardoso Ot 782.2 LOCAL SUPRFICIAL SWELLNG 07/29/2015 Ot 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 07/29/2015 Ot I48.91 UNSPECIFIED ATRIAL FIBRILLATION 07/29/2015 Ot Z79.01 CLUB DIRECTOR ( CURRENT) USE OF ANTICOAGULANT 07/30/2015 TROTTER DO, ERIKA L Ot E03.9 HYPOTHYROIDISM, UNSPECIFIED 08/07/2015 TROTTER DO, ERIKA L Ot E03.9 HYPOTHYROIDISM, UNSPECIFIED 08/20/2015 TROTTER DO, ERIKA L Ot E03.9 HYPOTHYROIDISM, UNSPECIFIED 08/27/2015 SERVANDO STRAUSS, BALBIR Bolaños Ot 719.45 JOINT PAIN-PELVIS 08/27/2015 BLANCHO DPM, ANKUR Cardoso Ot 729.5 PAIN IN LIMB 08/27/2015 BLANCHO DPM, ANKUR Cardoso Ot 782.2 LOCAL SUPRFICIAL SWELLNG 08/27/2015 Ot 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 08/27/2015 Ot I48.91 UNSPECIFIED ATRIAL FIBRILLATION 08/27/2015 Ot Z79.01 CLUB DIRECTOR ( CURRENT) USE OF ANTICOAGULANT 08/27/2015 SERGO HOPPER, ERIKA L Ot E03.9 HYPOTHYROIDISM, UNSPECIFIED 08/31/2015 SERVANDO STRAUSS, BALBIR Bolaños Ot 719.45 JOINT PAIN-PELVIS 08/31/2015 BLANCHO DPM, ANKUR Cardoso Ot 729.5 PAIN IN LIMB 08/31/2015 BLANCHO DPM, ANKUR Cardoso Ot 782.2 LOCAL SUPRFICIAL SWELLNG 08/31/2015 Ot 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 08/31/2015 Ot I48.91 UNSPECIFIED ATRIAL FIBRILLATION 08/31/2015 Ot Z79.01 CLUB DIRECTOR ( CURRENT) USE OF ANTICOAGULANT 08/31/2015 SERGO HOPPER, ERIKA L Ot E03.9 HYPOTHYROIDISM, UNSPECIFIED 09/01/2015 ROSALVA STRAUSS, CHRIS Rousseau Ot H66.91 OTITIS MEDIA, UNSPECIFIED, RIGHT EAR 09/01/2015 ROSALVA STRAUSS, CHRIS T Ot R51 HEADACHE 09/02/2015 ROSALVA STRAUSS, CHRIS Rousseau Ot H66.91 OTITIS MEDIA, UNSPECIFIED, RIGHT EAR 09/02/2015 ROSALVA STRAUSS, CHRIS Rousseau Ot R51 HEADACHE 09/09/2015 SERGO DO, ERIKA L Ot E03.9 HYPOTHYROIDISM, UNSPECIFIED 09/11/2015 TROTTER DO, ERIKA L Ot E03.9 HYPOTHYROIDISM, UNSPECIFIED 09/19/2015 TROTTER DO, ERIKA L Ot E03.9 HYPOTHYROIDISM, UNSPECIFIED 10/01/2015 SERVANDO STRAUSS, BALBIR Bolaños Ot 719.45 JOINT PAIN-PELVIS 10/01/2015 BLAGENTRYHO DPM, ANKUR Cardoso Ot 729.5 PAIN IN LIMB 10/01/2015 BLAGENTRYHO DPM, ANKUR Cardoso Ot 782.2 LOCAL SUPRFICIAL SWELLNG 10/01/2015 Ot 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 10/01/2015 Ot I48.91 UNSPECIFIED ATRIAL FIBRILLATION 10/01/2015 Ot Z79.01 INTERMEDIATE ( CURRENT) USE OF ANTICOAGULANT 10/01/2015 SERGO DO, ERIKA L Ot E03.9 HYPOTHYROIDISM, UNSPECIFIED 10/01/2015 SERGO DO, ERIKA L Ot E03.9 HYPOTHYROIDISM, UNSPECIFIED 01/21/2016 SERGO DO, ERIKA L Ot E03.9 HYPOTHYROIDISM, UNSPECIFIED 05/19/2016 SERGO HOPPER, ERIKA L Ot E03.9 HYPOTHYROIDISM, UNSPECIFIED 07/29/2016 JACQUELYN STRAUSS, SANGEETHA Parson Ot M23.41 LOOSE BODY IN KNEE, RIGHT KNEE 07/29/2016 SANGEETHA VALLADARES MD Ot M23.8X1 OTHER INTERNAL DERANGEMENTS OF RIGHT KNE 07/29/2016 SANGEETHA VALLADARES MD Ot Z01.810 ENCOUNTER FOR PREPROCEDURAL CARDIOVASCUL 07/29/2016 SANGEETHA VALLADARES MD Ot Z11.2 ENCOUNTER FOR SCREENING FOR OTHER BACTER 08/03/2016 SANGEETHA VALLADARES MD Ot E03.9 HYPOTHYROIDISM, UNSPECIFIED 08/03/2016 SANGEETHA VALLADARES MD Ot I10 ESSENTIAL (PRIMARY) HYPERTENSION 08/03/2016 SANGEETHA VALLADARES MD Ot I48.91 UNSPECIFIED ATRIAL FIBRILLATION 08/03/2016 SANGEETHA VALLADARES MD Ot K21.9 GASTRO-ESOPHAGEAL REFLUX DISEASE WITHOUT 08/03/2016 SANGEETHA VALLADARES MD Ot M23.8X1 OTHER INTERNAL DERANGEMENTS OF RIGHT KNE 08/03/2016 SANGEETHA VALLADARES MD Ot M94.261 CHONDROMALACIA, RIGHT KNEE 08/03/2016 SANGEETHA VALLADARES MD Ot Z79.899 OTHER CLUB DIRECTOR (CURRENT) DRUG THERAPY 08/03/2016 SANGEETHA VALLADAERS MD Ot Z87.891 PERSONAL HISTORY OF NICOTINE DEPENDENCE 08/04/2016 SANGEETHA VALLADARES MD Ot E03.9 HYPOTHYROIDISM, UNSPECIFIED 08/04/2016 SANGEETHA VALLADARES MD Ot I10 ESSENTIAL (PRIMARY) HYPERTENSION 08/04/2016 SANGEETHA VALLADARES MD Ot I48.91 UNSPECIFIED ATRIAL FIBRILLATION 08/04/2016 SANGEETHA VALLADARES MD Ot K21.9 GASTRO-ESOPHAGEAL REFLUX DISEASE WITHOUT 08/04/2016 SANGEETHA VALLADARES MD Ot M23.8X1 OTHER INTERNAL DERANGEMENTS OF RIGHT KNE 08/04/2016 SANGEETHA VALLADARES MD Ot M94.261 CHONDROMALACIA, RIGHT KNEE 08/04/2016 SANGEETHA VALLADARES MD Ot Z79.899 OTHER CLUB DIRECTOR (CURRENT) DRUG THERAPY 08/04/2016 SANGEETHA VALLADARES MD Ot Z87.891 PERSONAL HISTORY OF NICOTINE DEPENDENCE 01/16/2017 SERVANDO STRAUSS, BALBIR Bolaños Ot 719.45 JOINT PAIN-PELVIS 01/16/2017 ABHIJIT DPMagdaleno, ANKUR Cardoso Ot 729.5 PAIN IN LIMB 01/16/2017 ANKUR LACEY DPM Ot 782.2 LOCAL SUPRFICIAL SWELLNG 01/16/2017 Ot 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 01/16/2017 Ot I48.91 UNSPECIFIED ATRIAL FIBRILLATION 01/16/2017 Ot Z79.01 CLUB DIRECTOR ( CURRENT) USE OF ANTICOAGULANT 01/16/2017 SERGO HOPPER, ERIKA L Ot E03.9 HYPOTHYROIDISM, UNSPECIFIED 01/16/2017 SERGO HOPPER, ERIKA L Ot E03.9 HYPOTHYROIDISM, UNSPECIFIED 01/16/2017 SERGO HOPPER ERIKA L Ot E03.9 HYPOTHYROIDISM, UNSPECIFIED 01/16/2017 TROTTER DO, ERIKA L Ot E03.9 HYPOTHYROIDISM, UNSPECIFIED 02/16/2017 SERVANDO STRAUSS, BALBIR Bolaños Ot 719.45 JOINT PAIN-PELVIS 02/16/2017 ABHIJIT DPM, ANKUR Cardoso Ot 729.5 PAIN IN LIMB 02/16/2017 ABHIJIT DPM, ANKUR Cardoso Ot 782.2 LOCAL SUPRFICIAL SWELLNG 02/16/2017 Ot 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 02/16/2017 Ot I48.91 UNSPECIFIED ATRIAL FIBRILLATION 02/16/2017 Ot Z79.01 INTERMEDIATE ( CURRENT) USE OF ANTICOAGULANT 02/16/2017 TROTTER DO, ERIKA L Ot E03.9 HYPOTHYROIDISM, UNSPECIFIED 02/16/2017 TROTTER DO, ERIKA L Ot E03.9 HYPOTHYROIDISM, UNSPECIFIED 02/16/2017 TROTTER DO, ERIKA L Ot E03.9 HYPOTHYROIDISM, UNSPECIFIED 02/16/2017 TROTTER DO, ERIKA L Ot E03.9 HYPOTHYROIDISM, UNSPECIFIED 02/16/2017 KIARA DO PEDRO K Ot E03.9 HYPOTHYROIDISM, UNSPECIFIED 02/16/2017 KIARA DO PEDRO K Ot I10 ESSENTIAL (PRIMARY) HYPERTENSION 02/16/2017 KIARA HOPPER PEDRO K Ot I48.91 UNSPECIFIED ATRIAL FIBRILLATION 02/16/2017 KIARA DO PEDRO K Ot K21.9 GASTRO-ESOPHAGEAL REFLUX DISEASE WITHOUT 02/16/2017 KIARA DO PEDRO K Ot R10.31 RIGHT LOWER QUADRANT PAIN 02/16/2017 ALESHIA CRAIG DOA Minna Ot Z79.01 CLUB DIRECTOR (CURRENT) USE OF ANTICOAGULANT 02/16/2017 KIARA HOPPER PEDRO K Ot Z82.49 FAMILY HX OF ISCHEM HEART DIS AND OTH DI 02/16/2017 ALESHIA CRAIG DOA K Ot Z87.19 PERSONAL HISTORY OF OTHER DISEASES OF TH 02/16/2017 PEDRO CRAIG DO Ot Z87.59 PERSONAL HISTORY OF COMP OF PREG, CHLDBR 02/16/2017 PEDRO CRAIG DO Ot Z90.89 ACQUIRED ABSENCE OF OTHER ORGANS 02/16/2017 PEDRO CRAIG DO Ot Z98.51 TUBAL LIGATION STATUS 02/20/2017 PEDRO CRAIG DO K Ot E03.9 HYPOTHYROIDISM, UNSPECIFIED 02/20/2017 PEDRO CRAIG DO Ot I10 ESSENTIAL (PRIMARY) HYPERTENSION 02/20/2017 PEDRO CRAIG DO Ot I48.91 UNSPECIFIED ATRIAL FIBRILLATION 02/20/2017 PEDRO CRAIG DO Ot K21.9 GASTRO-ESOPHAGEAL REFLUX DISEASE WITHOUT 02/20/2017 PEDRO CRAIG DO Ot R10.31 RIGHT LOWER QUADRANT PAIN 02/20/2017 PEDRO CRAIG DO Ot Z79.01 CLUB DIRECTOR (CURRENT) USE OF ANTICOAGULANT 02/20/2017 PEDRO CRAIG DO Ot Z82.49 FAMILY HX OF ISCHEM HEART DIS AND OTH DI 02/20/2017 PEDRO CRAIG DO Ot Z87.19 PERSONAL HISTORY OF OTHER DISEASES OF TH 02/20/2017 PEDRO CRAIG DO Ot Z87.59 PERSONAL HISTORY OF COMP OF PREG, CHLDBR 02/20/2017 PEDRO CRAIG DO Ot Z90.89 ACQUIRED ABSENCE OF OTHER ORGANS 02/20/2017 PEDRO CRAIG DO Ot Z98.51 TUBAL LIGATION STATUS 02/20/2017 BALBIR AL MD Ot 719.45 JOINT PAIN-PELVIS 02/20/2017 BLANCHO DPM, ANKUR Cardoso Ot 729.5 PAIN IN LIMB 02/20/2017 MANIHO DPM, ANKUR Cardoso Ot 782.2 LOCAL SUPRFICIAL SWELLNG 02/20/2017 Ot 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 02/20/2017 Ot I48.91 UNSPECIFIED ATRIAL FIBRILLATION 02/20/2017 Ot Z79.01 INTERMEDIATE ( CURRENT) USE OF ANTICOAGULANT 02/20/2017 TROTTER DO, ERIKA L Ot E03.9 HYPOTHYROIDISM, UNSPECIFIED 02/20/2017 TROTTER DO, ERIKA L Ot E03.9 HYPOTHYROIDISM, UNSPECIFIED 02/20/2017 TROTTER DO, ERIKA L Ot E03.9 HYPOTHYROIDISM, UNSPECIFIED 02/20/2017 TROTTER DO, ERIKA L Ot E03.9 HYPOTHYROIDISM, UNSPECIFIED 11/21/2017 BALBIR AL MD Ot 719.45 JOINT PAIN-PELVIS 11/21/2017 BLANCHO DPM, ANKUR Cardoso Ot 729.5 PAIN IN LIMB 11/21/2017 BLANCHO DPM, ANKUR Cardoso Ot 782.2 LOCAL SUPRFICIAL SWELLNG 11/21/2017 Ot 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 11/21/2017 Ot I48.91 UNSPECIFIED ATRIAL FIBRILLATION 11/21/2017 Ot Z79.01 CLUB DIRECTOR ( CURRENT) USE OF ANTICOAGULANT 11/21/2017 TROTTER DO, ERIKA L Ot E03.9 HYPOTHYROIDISM, UNSPECIFIED 11/21/2017 TROTTER DO, ERIKA L Ot E03.9 HYPOTHYROIDISM, UNSPECIFIED 11/21/2017 TROTTER DO, ERIKA L Ot E03.9 HYPOTHYROIDISM, UNSPECIFIED 11/21/2017 TROTTER DO, ERIKA L Ot E03.9 HYPOTHYROIDISM, UNSPECIFIED 11/22/2017 BALBIR AL MD Ot 719.45 JOINT PAIN-PELVIS 11/22/2017 BLANCHO DPM, ANKUR Cardoso Ot 729.5 PAIN IN LIMB 11/22/2017 BLANCHO DPM, ANKUR Cardoso Ot 782.2 LOCAL SUPRFICIAL SWELLNG 11/22/2017 Ot 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 11/22/2017 Ot I48.91 UNSPECIFIED ATRIAL FIBRILLATION 11/22/2017 Ot Z79.01 INTERMEDIATE ( CURRENT) USE OF ANTICOAGULANT 11/22/2017 TROTTER DO, ERIKA L Ot E03.9 HYPOTHYROIDISM, UNSPECIFIED 11/22/2017 TROTTER DO, ERIKA L Ot E03.9 HYPOTHYROIDISM, UNSPECIFIED 11/22/2017 TROTTER DO, ERIKA L Ot E03.9 HYPOTHYROIDISM, UNSPECIFIED 11/22/2017 TROTTER DO, ERIKA L Ot E03.9 HYPOTHYROIDISM, UNSPECIFIED 11/28/2017 SERVANDO STRAUSS, BALBIR Bolaños Ot 719.45 JOINT PAIN-PELVIS 11/28/2017 BLANCHO DPM, ANKUR Cardoso Ot 729.5 PAIN IN LIMB 11/28/2017 BLANCHO DPM, ANKUR Cardoso Ot 782.2 LOCAL SUPRFICIAL SWELLNG 11/28/2017 Ot 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 11/28/2017 Ot I48.91 UNSPECIFIED ATRIAL FIBRILLATION 11/28/2017 Ot Z79.01 INTERMEDIATE ( CURRENT) USE OF ANTICOAGULANT 11/28/2017 TROTTER DO, ERIKA L Ot E03.9 HYPOTHYROIDISM, UNSPECIFIED 11/28/2017 TROTTER DO, ERIKA L Ot E03.9 HYPOTHYROIDISM, UNSPECIFIED 11/28/2017 TROTTER DO, ERIKA L Ot E03.9 HYPOTHYROIDISM, UNSPECIFIED 11/28/2017 TROTTER DO, ERIKA L Ot E03.9 HYPOTHYROIDISM, UNSPECIFIED 11/29/2017 SERVANDO STRAUSS, BALBIR Bolaños Ot 719.45 JOINT PAIN-PELVIS 11/29/2017 MANIHO DPM, ANKUR Cardoso Ot 729.5 PAIN IN LIMB 11/29/2017 MANIHO DPM, ANKUR Cardoso Ot 782.2 LOCAL SUPRFICIAL SWELLNG 11/29/2017 Ot 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 11/29/2017 Ot I48.91 UNSPECIFIED ATRIAL FIBRILLATION 11/29/2017 Ot Z79.01 CLUB DIRECTOR ( CURRENT) USE OF ANTICOAGULANT 11/29/2017 TROTTER DO, ERIKA L Ot E03.9 HYPOTHYROIDISM, UNSPECIFIED 11/29/2017 TROTTER DO, ERIKA L Ot E03.9 HYPOTHYROIDISM, UNSPECIFIED 11/29/2017 TROTTER DO, ERIKA L Ot E03.9 HYPOTHYROIDISM, UNSPECIFIED 11/29/2017 TROTTER DO, ERIKA L Ot E03.9 HYPOTHYROIDISM, UNSPECIFIED 05/14/2018 BAIMA, VIDA L INFORMATICA Ot E66.09 OTHER OBESITY DUE TO EXCESS CALORIES 05/14/2018 BAIMA, VIDA L INFORMATICA Ot I48.0 PAROXYSMAL ATRIAL FIBRILLATION 05/14/2018 BAIMA, VIDA L INFORMATICA Ot Z98.890 OTHER SPECIFIED POSTPROCEDURAL STATES 05/31/2018 BAIMA, VIDA L INFORMATICA Ot E66.09 OTHER OBESITY DUE TO EXCESS CALORIES 05/31/2018 BAIMA, VIDA L INFORMATICA Ot I48.0 PAROXYSMAL ATRIAL FIBRILLATION 05/31/2018 BAIMA, VIDA L INFORMATICA Ot Z98.890 OTHER SPECIFIED POSTPROCEDURAL STATES 06/08/2018 BAIMA, VIDA L INFORMATICA Ot E66.09 OTHER OBESITY DUE TO EXCESS CALORIES 06/08/2018 BAIMA, VIDA L INFORMATICA Ot I48.0 PAROXYSMAL ATRIAL FIBRILLATION 06/08/2018 BAIMA, VIDA L INFORMATICA Ot Z98.890 OTHER SPECIFIED POSTPROCEDURAL STATES Procedures There is no data. Results Test Result Range THYROID STIMULATING HORMONE - 01/07/16 05:38 THYROID STIMULATING HORMONE 2.06 u[iU]/mL 0.35-4.94 THYROID STIMULATING HORMONE - 05/09/16 05:57 THYROID STIMULATING HORMONE 2.57 u[iU]/mL 0.35-4.94 Methicillin resistant Staphylococcus aureus (MRSA) screening culture - 10:47 Methicillin resistant Staphylococcus aureus (MRSA) screening culture NEG NRG Complete blood count (CBC) with automated white blood cell (WBC) differential - 02/16/17 09:42 Blood leukocytes automated count (number/volume) 4.8 10*3/uL 4.3-11.0 Blood erythrocytes automated count (number/volume) 5.19 10*6/uL 4.35-5.85 Venous blood hemoglobin measurement (mass/volume) 14.6 g/dL 11.5-16.0 Blood hematocrit (volume fraction) 42 % 35-52 Automated erythrocyte mean corpuscular volume 81 [foz_us] 80-99 Automated erythrocyte mean corpuscular hemoglobin (mass per erythrocyte) 28 pg 25-34 Automated erythrocyte mean corpuscular hemoglobin concentration measurement ( mass/volume) 35 g/dL 32-36 Automated erythrocyte distribution width ratio 13.1 % 10.0-14.5 Automated blood platelet count (count/volume) 215 10*3/uL 130-400 Automated blood platelet mean volume measurement 9.4 [foz_us] 7.4-10.4 Automated blood neutrophils/100 leukocytes 61 % 42-75 Automated blood lymphocytes/100 leukocytes 29 % 12-44 Blood monocytes/100 leukocytes 8 % 0-12 Automated blood eosinophils/100 leukocytes 2 % 0-10 Automated blood basophils/100 leukocytes 0 % 0-10 Blood neutrophils automated count (number/volume) 2.9 10*3 1.8-7.8 Blood lymphocytes automated count (number/volume) 1.4 10*3 1.0-4.0 Blood monocytes automated count (number/volume) 0.4 10*3 0.0-1.0 Automated eosinophil count 0.1 10*3/uL 0.0-0.3 Automated blood basophil count (count/volume) 0.0 10*3/uL 0.0-0.1 Comprehensive metabolic panel - 02/16/17 09:42 Serum or plasma sodium measurement (moles/volume) 140 mmol/L 135-145 Serum or plasma potassium measurement (moles/volume) 4.1 mmol/L 3.6-5.0 Serum or plasma chloride measurement (moles/volume) 108 mmol/L 98-107 Carbon dioxide 24 mmol/L 21-32 Serum or plasma anion gap determination (moles/volume) 8 mmol/L 5-14 Serum or plasma urea nitrogen measurement (mass/volume) 11 mg/dL 7-18 Serum or plasma creatinine measurement (mass/volume) 0.81 mg/dL 0.60-1.30 Serum or plasma urea nitrogen/creatinine mass ratio 14 NRG Serum or plasma creatinine measurement with calculation of estimated glomerular filtration rate > NRG Serum or plasma glucose measurement (mass/volume) 104 mg/dL 70-105 Serum or plasma calcium measurement (mass/volume) 8.9 mg/dL 8.5-10.1 Serum or plasma total bilirubin measurement (mass/volume) 1.2 mg/dL 0.1-1.0 Serum or plasma alkaline phosphatase measurement (enzymatic activity/volume) 70 U/L 40-136 Serum or plasma aspartate aminotransferase measurement (enzymatic activity/ volume) 15 U/L 5-34 Serum or plasma alanine aminotransferase measurement (enzymatic activity/volume ) 19 U/L 0-55 Serum or plasma protein measurement (mass/volume) 6.9 g/dL 6.4-8.2 Serum or plasma albumin measurement (mass/volume) 4.0 g/dL 3.2-4.5 Serum or plasma amylase measurement (enzymatic activity/volume) - 02/16/17 09: 42 Serum or plasma amylase measurement (enzymatic activity/volume) 42 U /L 25-125 Lipase - 02/16/17 09:42 Lipase 11 U/L 8-78 Complete urinalysis with reflex to culture - 02/16/17 09:54 Urine color determination YELLOW NRG Urine clarity determination CLEAR NRG Urine pH measurement by test strip 5 5-9 Specific gravity of urine by test strip 1.020 1.016- 1.022 Urine protein assay by test strip, semi-quantitative NEGATIVE NEGATIVE Urine glucose detection by automated test strip NEGATIVE NEGATIVE Erythrocytes detection in urine sediment by light microscopy NEGATIVE NEGATIVE Urine ketones detection by automated test strip NEGATIVE NEGATIVE Urine nitrite detection by test strip NEGATIVE NEGATIVE Urine total bilirubin detection by test strip NEGATIVE NEGATIVE Urine urobilinogen measurement by automated test strip (mass/volume) NORMAL NORMAL Urine leukocyte esterase detection by dipstick NEGATIVE NEGATIVE Automated urine sediment erythrocyte count by microscopy (number/high power field) NONE NRG Automated urine sediment leukocyte count by microscopy (number/high power field ) RARE NRG Bacteria detection in urine sediment by light microscopy FEW NRG Squamous epithelial cells detection in urine sediment by light microscopy 2-5 NRG Crystals detection in urine sediment by light microscopy NONE NRG Casts detection in urine sediment by light microscopy NONE NRG Mucus detection in urine sediment by light microscopy NEGATIVE NRG Complete urinalysis with reflex to culture NO NRG Encounters ACCT No. Visit Date/Time Discharge Status Pt. Type Provider Facility Loc./Unit Complaint [id number] 05/11/2018 07:30:00 05/11/2018 23:59:59 CLS Outpatient VIDA HALL [facility] CARD PAF, HISTORY OF THROIDECTOMY, OBESITY [id number] 03/08/2018 07:31:00 03/08/2018 23:59:59 CLS Preadmit SANGEETHA WADDELL MD [facility] SLEEP SNORING,SLEEP DISTURBANCE [id number] 02/16/2017 09:04:00 02/16/2017 12:32:00 DIS Emergency KIARA DOPEDRO [facility] ER RT SIDE PAIN [id number] 08/03/2016 08:14:00 08/03/2016 15:25:00 DIS Outpatient SANGEETHA VALLADARES MD [facility] SDC RIGHT KNEE TORN MEDIAL MENISCUS [id number] 07/29/2016 10:24:00 07/29/2016 10:55:00 DIS Outpatient SANGEETHA VALLADARES MD [facility] PREOP RIGHT KNEE TORN MEDIAL MENISCUS [id number] 05/09/2016 05:43:00 05/09/2016 23:59:59 CLS Outpatient ERIKA TROTTER DO [facility] LAB CPT 8443 [id number] 01/07/2016 05:29:00 01/07/2016 23:59:59 CLS Outpatient ERIKA TROTTER DO [facility] WSo HYPOTHYROIDISM [id number] 09/03/2015 05:40:00 09/03/2015 23:59:59 CLS Outpatient ERIKA TROTTER DO [facility] LAB HYPOTHYROIDISM [id number] 09/01/2015 00:00:00 09/01/2015 04:02:00 DIS Emergency ROSALVA STRAUSS, CHRIS Rousseau [facility] ER TILLMAN [id number] 07/29/2015 06:19:00 07/29/2015 23:59:59 CLS Outpatient ERIKA TROTTER DO L [facility] LAB HYPOTHYROIDISM [id number] 05/20/2015 07:31:00 05/20/2015 08:59:00 DIS Emergency YARITZA SINGH DO L [facility] ER IRR HEART RATE [id number] 05/15/2015 11:37:00 05/16/2015 12:25:00 DIS Inpatient RADHA PETERSON DO [facility] CSD NEW ONSET A-FIB W/RVR THYROID DYSFUNCTION [id number] 08/14/2014 10:52:00 08/14/2014 23:59:59 CLS Outpatient ANKUR LACEY DPM [facility] RAD GANGLION CYST [id number] 05/17/2013 08:28:00 05/17/2013 23:59:59 CLS Outpatient SERVANDO STRAUSS, BALBIR Bolaños [facility] RAD PAINFUL RT HIP [id number] 07/13/2018 19:53:00 ACT Emergency JESUSITA STRAUSS, ALFONSO Millan [facility] ER FALL/PAIN IN CHEST WITH DEEP BREATH [id number] 06/25/2015 07:39:00 Document Registration [id number] 06/22/2018 09:00:00 06/22/2018 23:59:59 CLS Outpatient MATTHIEU HORNER [facility] [id number] 08/14/2014 10:53:30 ACT Document Registration
--- NOTE | 2018-07-13 21:16 | ED Fall/Injury ---
General Chief Complaint: Chest Wall Stated Complaint: FALL/PAIN IN CHEST WITH DEEP BREATH Nursing Triage Note: pt reports falling off bottom stair and landed on left shoulder and c/o left rib cage pain and gets worse with deep breaths in. pt takes 3- 81mg ASA each night but denies taking them tonight. pt denies LOC and denies hitting head. Source: patient, family Exam Limitations: no limitations History of Present Illness Date Seen by Provider: Jul 13, 2018 Time Seen by Provider: 21:00 Initial Comments Patient presents to ER by private conveyance with chief complaint of 3 hours prior to our interview she had a fall off of one step going out of her house and landed on her left shoulder blade. She's having a little bit of achiness in her left shoulder blade but also in her left lower ribs and left flank under her armpit. She does have scheduled surgery for her left shoulder rotator cuff injury. She says is not any worse than usual. She's not having enough pain to take anything for it or want anything right now. She is just concerned about pain in her left ribs. She did not strike her head lose consciousness and she is only on baby aspirin. She does have a history of atrial fibrillation not on blood thinners. She is followed by Dr. Rivera. No history of coronary disease area a few weeks ago she had a negative cardiac stress test. She's having no swelling in her hands or feet shortness of breath or history of lung disease. Allergies and Home Medications Allergies Coded Allergies: Penicillins (Verified Allergy, Unknown, 05/15/15) Sulfa (Sulfonamide Antibiotics) (Verified Allergy, Unknown, 05/15/15) Uncoded Allergies: STEROIDS (Allergy, Unknown, 05/15/15) RED AND FLUSHED Home Medications Apixaban 5 Mg Tablet, 5 MG PO BID, (Reported) Diltiazem HCl 180 Mg Cap.er.24h, 180 MG PO DAILY, (Reported) Hydrocodone Bit/Acetaminophen 1 Each Tablet, 1 EACH PO Q4H Prescribed by: KAEL LEE on 08/03/16 1251 Levothyroxine Sodium 125 Mcg Tablet, 125 MCG PO DAILY, (Reported) Ranitidine HCl 75 Mg Tablet, 75 MG PO HS, (Reported) Tramadol HCl 50 Mg Tablet, 50 MG PO Q4H Prescribed by: PEDRO CRAIG on 02/16/17 1222 Patient Home Medication List Home Medication List Reviewed: Yes Review of Systems Review of Systems Constitutional: No chills, No diaphoresis, No fever, No malaise Eyes: Denies Blindness, Denies Blurred Vision, Denies Drainage, Denies Pain Ears, Nose, Mouth, Throat: denies ear pain, denies ear discharge, denies nose pain, denies nose discharge, denies epistaxis Respiratory: No cough, No short of breath Cardiovascular: see HPI, chest pain; No edema Gastrointestinal: No abdominal pain, No constipation, No nausea Past Dkkiejf-Oeicgs-Bbvyzm Hx Patient Social History Alcohol Use: Denies Use Recreational Drug Use: No Former Smoker, Quit: July 29, 1982 Recent Foreign Travel: No Contact w/Someone Who Travel: No Recent Infectious Disease Expo: No Recent Hopitalizations: No Immunizations Up To Date Tetanus Booster (TDap): Less than 5yrs Seasonal Allergies Seasonal Allergies: No Past Medical History Surgeries: Yes Abdominal, Section, Ear Surgery, Gallbladder, Orthopedic, Thyroidectomy , Tubal Ligation Respiratory: No (possible sleep apnea) Cardiac: Yes Atrial Fibrillation, Hypertension Neurological: No 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 Genitourinary: Yes UTI-Chronic Gastrointestinal: Yes Gastroesophageal Reflux, Diverticulosis Musculoskeletal: Yes (BONE SPURS, CHRONIC KNEE PAIN/ARTHRITIS) Arthritis, Chronic Back Pain Endocrine: Yes (PARTIAL THYROIDECTOMY FOR GOITER) Hypothyroidsim Chronic Ear Infection Hearing Impairment: Deaf Cancer: No Psychosocial: No Integumentary: No Blood Disorders: No Family Medical History Arthritis 19 MOTHER Cardiovascular disease 19 MOTHER Completed stroke 19 FATHER 19 MOTHER Diabetes mellitus 19 MOTHER G8 BROTHER Fibrocystic disease of breast G8 SISTER Respiratory disorder G8 BROTHER (Sleep Apnea) Physical Exam Vital Signs Vital Signs - First Documented 07/13/18 20:13 Temp 97.8 Pulse 77 Resp 18 B/P (MAP) 160/64 (96) Pulse Ox 99 O2 Delivery Room Air Capillary Refill : Less Than 3 Seconds Height, Weight, BMI Height: 5'4.00" Weight: 265lbs. 0.0oz. [id number]; 46.2 BMI Method:Stated General Appearance: WD/WN, no apparent distress HEENT: PERRL/EOMI, normal ENT inspection, TMs normal, pharynx normal, other ( Negative for raccoon eyes, Parkinson sign, hemotympanum or other evidence of head trauma) Neck: non-tender, full range of motion, supple, normal inspection Cardiovascular: normal peripheral pulses, regular rate, rhythm, no edema, no murmur Respiratory: lungs clear, normal breath sounds, no respiratory distress, no accessory muscle use, other (anterior left costal margin tender to palpation or deep inspiration) Gastrointestinal: normal bowel sounds, non tender, soft Extremities: non-tender, normal inspection, normal capillary refill, other ( Baseline decreased range of motion of the left shoulder) 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 as tested, no motor/sensory deficits, alert [place] Coma Score Best Eye Response: (4) Open Spontaneously Best Verbal Response: (5) Oriented Best Motor Response: (6) Obeys Commands Jillian Total: 15 Progress/Results/Core Measures Results/Orders My Orders Orders - [facility] Chest Pa/Lat (2 View) (07/13/18 21:14) Vital Signs/I&O 07/13/18 07/13/18 20:13 22:08 Temp 97.8 Pulse 77 72 Resp 18 18 B/P (MAP) 160/64 (96) 155/78 (103) Pulse Ox 99 97 O2 Delivery Room Air Room Air Blood Pressure Mean: 96 Progress Progress Note : Time: 21:49 Progress Note Patient took a small fall and did not strike her head. We've discussed observation. We'll get a 2 view chest x-ray to look at her ribs which is what her chief concern is. We have offered her something for pain and she's declined. Her left shoulder seems to be at baseline impairment secondary to her rotator cuff tear. Negative stress test by Dr. Rivera April 2018. Initial ECG Impression Date: Jul 13, 2018 Initial ECG Impression Time: 20:24 Initial ECG Rate: 74 Initial ECG Rhythm: Normal Sinus Initial ECG Intervals: Normal Initial ECG Impression: Normal Initial ECG Comparisson: No Previous ECG Available Comment No ST elevation or depression. Diagnostic Imaging Diagonstic Imaging: Xray Plain Films/CT/US/NM/MRI: chest (2 view) Comments No acute cardiopulmonary processes noted. No acute rib fractures. Clavicle and visualized humerus and scapula are unremarkable. Reviewed: Reviewed by Me Departure Impression Primary Impression: Fall Qualified Codes: W19.XXXA - Unspecified fall, initial encounter Additional Impressions: Chronic left shoulder pain Rib pain on left side Disposition: 01 HOME, SELF-CARE Condition: Stable Departure-Patient Inst. Decision time for Depature: 21:51 Referrals: SELF,MATTHIEU STRAUSS (PCP/Family) Primary Care Physician Patient Instructions: Bruised Rib (DC), Head Injury Observation (DC) Add. Discharge Instructions: Please observe the patient until 7 AM for any signs of numbness, weakness, blurred vision double vision, nausea, confusion etc. He is okay to sleep. If she is doing fine in the morning then this follow-up with the orthopedic surgeon for your shoulder. For your left rib pain you may apply ice packs as well as heat. Topical creams such as icy hot or Biofreeze may be helpful. Tylenol and Motrin can help take the edge off. Return to the ER if you have any concerns or persistent pain that continues to get worse. All discharge instructions reviewed with patient and/or family. Voiced understanding. [facility] Jul 13, 2018 21:16
--- NOTE | 2018-07-13 22:04 | Diagnostic Imaging Report ---
EXAMINATION: PA and lateral chest. INDICATION: Fall. Left shoulder and left rib cage pain. FINDINGS: The lungs demonstrate no focal infiltrate or consolidation. There is no effusion. There is no pneumothorax. Heart size and mediastinal contours are appropriate. Pulmonary vascularity appears normal. There is no evidence of glenohumeral joint dislocation. There are arthritic changes at the AC joints. No displaced left-sided rib fracture evident. IMPRESSION: 1. No radiographic evidence of an acute cardiopulmonary process. 2. No evidence of left-sided rib fracture. There are AC joint arthritic changes but no clavicular or proximal humeral fracture evident. There are no findings to suggest glenohumeral joint dislocation on this nondedicated exam. Dictated by: Dictated on workstation # [id number]
[2018-07-13 22:08] VITALS: BP 155/78
== END 2018-07-13 22:14 | disposition home or self-care (01) ==
LOC: EDUNIT# 19:52 → ER 19:53
DX: M25.512 Pain in left shoulder (principal); R07.81 Pleurodynia; I48.91 Unspecified atrial fibrillation; I10 Essential (primary) hypertension; K21.9 Gastro-esophageal reflux disease without esophagitis; E03.9 Hypothyroidism, unspecified; R40.2142 Coma scale, eyes open, spontaneous, at arrival to emergency department; R40.2252 Coma scale, best verbal response, oriented, at arrival to emergency department; R40.2362 Coma scale, best motor response, obeys commands, at arrival to emergency department; Z87.19 Personal history of other diseases of the digestive system; Z87.440 Personal history of urinary (tract) infections; Z79.82 Long term (current) use of aspirin; Z82.49 Family history of ischemic heart disease and other diseases of the circulatory system; Z88.0 Allergy status to penicillin; Z79.02 Long term (current) use of antithrombotics/antiplatelets; Z87.891 Personal history of nicotine dependence; Z98.890 Other specified postprocedural states; Z98.51 Tubal ligation status; Z90.89 Acquired absence of other organs; Z88.2 Allergy status to sulfonamides; Z88.8 Allergy status to other drugs, medicaments and biological substances; W10.8XXA Fall (on) (from) other stairs and steps, initial encounter
CPT/HCPCS: 71046

== ENCOUNTER 2018-08-02 11:29 | Outpatient (CLI) | payer MEDICARE ==
[~2018-08-02] VITALS: Ht 162.6 cm; Wt 122.5 kg
[2018-08-02] MEDS ORDERED: ASPI-586 PO (11:44)
[2018-08-02 11:50] VITALS: BP 107/77
== END 2018-08-02 12:49 | disposition home or self-care (01) ==
LOC: PREOP 11:29
PROVIDERS: ATTEND Orthopaedic Surgery
DX: Z01.818 Encounter for other preprocedural examination (principal)
CPT/HCPCS: 87081

== ENCOUNTER → 2018-08-09 | Outpatient (CLI) | payer MEDICARE ==
[~2018-08-09] MED LIST changes: +ASPI-586 PO
--- NOTE | 2018-08-09 13:23 | Diagnostic Imaging Report ---
Indication: Left rib injury from a fall Exam: PA chest and 3 views of the left ribs were obtained. Findings: The lungs are clear. There are no effusions or pneumothoraces. There are no displaced rib fractures seen. Impression: Negative chest and left ribs. Dictated by: Dictated on workstation # [id number]
== END ==
LOC: RAD 09:41
PROVIDERS: ATTEND Nurse Practitioner Family
DX: S29.9XXA Unspecified injury of thorax, initial encounter (principal); W19.XXXA Unspecified fall, initial encounter; Z91.81 History of falling
CPT/HCPCS: 71101

== ENCOUNTER 2018-08-15 06:08 | Day surgery (SDC) | payer MEDICARE ==
--- NOTE | 2018-08-06 12:34 | HISTORY AND PHYSICAL ---
DATE OF SERVICE: 08/15/2018 ADMISSION HISTORY AND PHYSICAL DATE OF ADMISSION: 08/15/2018. This will be for outpatient surgery on 08/15/2018 for left shoulder rotator cuff repair. HISTORY: The patient is a 68-year-old right-hand dominant female, who complains of left shoulder pain and weakness. She underwent an MRI, which showed a full thickness supraspinatus tear. She reports pain and weakness in the shoulder and no improvement with home exercise program. Due to functional impairment, failure to improve with conservative measures, the patient elected to proceed with surgical intervention. REVIEW OF SYSTEMS: No chest pain. No shortness of breath. No dysuria. PAST MEDICAL HISTORY: Hypothyroidism, anemia, reflux, atrial fibrillation. PAST SURGICAL HISTORY: , tubal ligation, cholecystectomy, hemithyroidectomy, sinus surgery, knee septoplasty. FAMILY HISTORY: Significant for cardiovascular disease, diabetes and hypothyroidism. PRIMARY CARE PROVIDER: Dr. King. MEDICATIONS: 1. Synthroid. 2. Cartia. 3. Zantac. 4. Aspirin. ALLERGIES: AMOXICILLIN, SULFA, TAPE, STEROIDS. SOCIAL HISTORY: The patient is a former smoker with a [id number] history and drinks alcohol rarely. PHYSICAL EXAMINATION: GENERAL: The patient is well-developed, well-nourished, in no acute distress. HEENT: Normocephalic and atraumatic. Pupils are equal, round and reactive to light. Oropharynx is clear. NECK: Supple. No lymphadenopathy. LUNGS: Clear to auscultation bilaterally. HEART: Regular rate and rhythm. ABDOMEN: Soft, nontender, nondistended. EXTREMITIES: Left shoulder demonstrates no gross atrophy. She has active forward elevation of 170 degrees external rotation and 70 degrees internal rotation to her midlumbar spine. She has weakness with abduction and external rotation with positive Neer's and positive Hawkin sign. IMPRESSION: Left shoulder full thickness rotator cuff tear. PLAN: Left shoulder arthroscopy with open rotator cuff repair. The risks, benefits, options, ramifications and recovery were discussed at length with the patient. She understands and wishes to proceed. DATE OF SURGERY: 08/15/2018. Job ID: [id number] DocumentID: [id number] Dictated Date: 08/06/2018 11:32:05 Women Specialist Date: 08/06/2018 12:34:00 Dictated By: SANGEETHA VALLADARES MD
[~2018-08-15] VITALS: Ht 162.6 cm; Wt 120.3 kg
[2018-08-15] VITALS (12 sets, daily range): BP systolic 122–174; BP diastolic 59–84
--- OUTSIDE RECORDS SUMMARY | 2018-08-15 06:13 | XMS REPORT | Clinical Summary ---
Author Author [facility] Organization [facility] Address Unknown Phone Unavailable Care Team Providers Care Solution Manager Name Role Phone Self, Isaak STRAUSS PCP Unavailable Self, Referral 21 Unavailable DipascoLico MD Unavailable Source Comments Some departments are not documenting in the electronic medical record. If you d o not see the information that you expected, contact Release of Information in [facility] Patient Communicator Information Management department at [phone] for further assistan ce in locating additional records.[facility] Allergies Comments Active Allergy Reactions Severity Noted [...] sensorineural hearing loss of right ear with 09/04/2017 09/26/2017 restricted hearing of left ear Family History Medical History Relation Name Comments [...] Taken Vital Sign Reading 04/02/2018 10:48 AM [employer] Blood Pressure 137/83 04/02/2018 10:48 AM [employer] Pulse 85 03/25/2014 11:06 AM [employer] Temperature 36.9 C (98.5 F) 03/25/2014 11:06 AM [employer] Respiratory Rate 20 03/25/2014 11:06 AM [employer] Oxygen Saturation 99% - Inhaled Oxygen - [...] (1 of 2 - PCV13) INFLUENZA VACCINE 12/25/2018 Results Not on filefrom Last 3 Months Insurance Type Payer Benefit Subscriber ID Effective Phone Address Plan / Dates Group Medicare MEDICARE MEDICARE xxxxxxxxxxx 2015-P PART A AND resent B Medicare BCBS BCBS xxxxxxxxxxxx 2018-P SUPPLEMENT resent Advance Directives Patient has advance care planning documents on file. For more information, richy ulloa contact: [facility] [address] [place] [address]
--- OUTSIDE RECORDS SUMMARY | 2018-08-15 06:14 | XMS REPORT | Continuity of Care Document ---
Author Organization Unknown Address Unknown Allergies Active Description Code Type Severity Reaction Onset Reported/Identified Relationship to Patient Clinical Status Yes Penicillins [id number] Drug Allergy Unknown N/A 05/15/2015 Yes STEROIDS STEROIDS Unknown N/A 05/15/2015 Yes Sulfa (Sulfonamide Antibiotics) [id number] Drug Allergy Unknown N/A 05/15/2015 Yes prednisone [id number] Drug Allergy Moderate FLUSHED/REDNESS 08/02/2018 Yes Penicillins [id number] Drug Allergy Mild HIVES 08/02/2018 Yes Sulfa (Sulfonamide Antibiotics) [id number] Drug Allergy Mild RASH 08/02/2018 Medications There is no data. 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 05/16/2015 PETERSONMELANIE HOPPER RADHA Ot E66.9 OBESITY, UNSPECIFIED 05/16/2015 PETERSON DO RADHA Ot G47.33 OBSTRUCTIVE SLEEP APNEA (ADULT) (PEDIATR 05/16/2015 PETERSON DO RADHA Ot I10 ESSENTIAL (PRIMARY) HYPERTENSION 05/16/2015 PETERSON DO RADHA Ot I48.91 UNSPECIFIED ATRIAL FIBRILLATION 05/16/2015 PETERSON DO RADHA Ot K21.9 GASTRO-ESOPHAGEAL REFLUX DISEASE WITHOUT 05/16/2015 PETERSON DO, RADHA Ot R05 COUGH 05/16/2015 PETERSON DO RADHA Ot Z68.42 BODY MASS INDEX (BMI) 45.0-49.9, ADULT 05/16/2015 NICHOLAS HOPPER RADHA Ot Z87.891 PERSONAL HISTORY OF NICOTINE DEPENDENCE 05/20/2015 SERVANDO STRAUSS, BALBIR Bolaños Ot 719.45 05/20/2015 BLANCHO DPM, ANKUR Cardoso Ot 729.5 05/20/2015 BLANCHO DPM, ANKUR Cardoso Ot 782.2 05/20/2015 SINGH YARITZA HOPPER Ot I48.91 UNSPECIFIED ATRIAL FIBRILLATION 07/08/2015 Ot E05.80 07/08/2015 Ot I48.91 07/08/2015 Ot Z79.01 07/29/2015 SERVANDO STRAUSS, BALBIR Bolaños Ot 719.45 JOINT PAIN-PELVIS 07/29/2015 BLANCHO DPM, ANKUR Cardoso Ot 729.5 PAIN IN LIMB 07/29/2015 BLANCHO DPM, ANKUR Cardoso Ot 782.2 LOCAL SUPRFICIAL SWELLNG 07/29/2015 Ot 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 07/29/2015 Ot I48.91 UNSPECIFIED ATRIAL FIBRILLATION 07/29/2015 Ot Z79.01 PENITENTIARY (CURRENT) USE OF ANTICOAGULANT 07/30/2015 TROTTER DO, ERIKA L Ot E03.9 HYPOTHYROIDISM, UNSPECIFIED 08/07/2015 TROTTER DO, ERIKA L Ot E03.9 HYPOTHYROIDISM, UNSPECIFIED 08/20/2015 TORTTER DO, ERIKA L Ot E03.9 HYPOTHYROIDISM, UNSPECIFIED 08/27/2015 SERVANDO STRAUSS, BALBIR Bolaños Ot 719.45 JOINT PAIN-PELVIS 08/27/2015 BLANCHO DPM, ANKUR Cardoso Ot 729.5 PAIN IN LIMB 08/27/2015 BLANCHO DPM, ANKUR Cardoso Ot 782.2 LOCAL SUPRFICIAL SWELLNG 08/27/2015 Ot 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 08/27/2015 Ot I48.91 UNSPECIFIED ATRIAL FIBRILLATION 08/27/2015 Ot Z79.01 PENITENTIARY (CURRENT) USE OF ANTICOAGULANT 08/27/2015 TROTTER DO, ERIKA L Ot E03.9 HYPOTHYROIDISM, UNSPECIFIED 08/31/2015 BALBIR AL MD Ot 719.45 JOINT PAIN-PELVIS 08/31/2015 BLANCHO DPM, ANKUR Cardoso Ot 729.5 PAIN IN LIMB 08/31/2015 BLANCHO DPM, ANKUR Cardoso Ot 782.2 LOCAL SUPRFICIAL SWELLNG 08/31/2015 Ot 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 08/31/2015 Ot I48.91 UNSPECIFIED ATRIAL FIBRILLATION 08/31/2015 Ot Z79.01 COVER INSPECTOR (CURRENT) USE OF ANTICOAGULANT 08/31/2015 TROTTER , ERIKA L Ot E03.9 HYPOTHYROIDISM, UNSPECIFIED 09/01/2015 ROSALVA STRAUSS, CHRIS Rousseau Ot H66.91 OTITIS MEDIA, UNSPECIFIED, RIGHT EAR 09/01/2015 ROSAVLA STRAUSS, CHRIS T Ot R51 HEADACHE 09/02/2015 ROSALVA STRAUSS, CHRIS T Ot H66.91 OTITIS MEDIA, UNSPECIFIED, RIGHT EAR 09/02/2015 ROSALVA STRAUSS, CHRIS T Ot R51 HEADACHE 09/09/2015 SERGO HOPPER, ERIKA L Ot E03.9 HYPOTHYROIDISM, UNSPECIFIED 09/11/2015 SERGO DO, ERIKA L Ot E03.9 HYPOTHYROIDISM, UNSPECIFIED 09/19/2015 SERGO DO, ERIKA L Ot E03.9 HYPOTHYROIDISM, UNSPECIFIED 10/01/2015 SERVANDO STRAUSS, BALBIR Bolaños Ot 719.45 JOINT PAIN-PELVIS 10/01/2015 BLANCHO DPM, ANKUR Cardoso Ot 729.5 PAIN IN LIMB 10/01/2015 BLANCHO DPM, ANKUR Cardoso Ot 782.2 LOCAL SUPRFICIAL SWELLNG 10/01/2015 Ot 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 10/01/2015 Ot I48.91 UNSPECIFIED ATRIAL FIBRILLATION 10/01/2015 Ot Z79.01 PENITENTIARY (CURRENT) USE OF ANTICOAGULANT 10/01/2015 SERGO DO, ERIKA L Ot E03.9 HYPOTHYROIDISM, UNSPECIFIED 10/01/2015 SERGO HOPPER, ERIKA L Ot E03.9 HYPOTHYROIDISM, UNSPECIFIED 01/21/2016 SERGO HOPPER, ERIKA L Ot E03.9 HYPOTHYROIDISM, UNSPECIFIED 05/19/2016 SERGO HOPPER, ERIKA L Ot E03.9 HYPOTHYROIDISM, UNSPECIFIED 07/29/2016 JACQUELYN STRAUSS, SANGEETHA Parson Ot M23.41 LOOSE BODY IN KNEE, RIGHT KNEE 07/29/2016 JACQUELYN STRAUSS, SANGEETHA Parson Ot M23.8X1 OTHER INTERNAL DERANGEMENTS OF RIGHT KNE 07/29/2016 JACQUELYN STRAUSS, SANGEETHA Parson Ot Z01.810 ENCOUNTER FOR PREPROCEDURAL CARDIOVASCUL 07/29/2016 SANGEETHA VALLADARES MD Ot Z11.2 ENCOUNTER FOR SCREENING FOR OTHER BACTER 08/03/2016 SANGEETHA VALLADARES MD Ot E03.9 HYPOTHYROIDISM, UNSPECIFIED 08/03/2016 SANGEETHA VALLADARES MD Ot I10 ESSENTIAL (PRIMARY) HYPERTENSION 08/03/2016 SANGEETHA VALLADRAES MD Ot I48.91 UNSPECIFIED ATRIAL FIBRILLATION 08/03/2016 SANGEETHA VALLADARES MD Ot K21.9 GASTRO-ESOPHAGEAL REFLUX DISEASE WITHOUT 08/03/2016 SANGEETHA VALLADARES MD Ot M23.8X1 OTHER INTERNAL DERANGEMENTS OF RIGHT KNE 08/03/2016 SANGEETHA VALLADARES MD Ot M94.261 CHONDROMALACIA, RIGHT KNEE 08/03/2016 SANGEETHA VALLADARES MD Ot Z79.899 OTHER COVER INSPECTOR (CURRENT) DRUG THERAPY 08/03/2016 SANGEETHA VALLADARES MD Ot Z87.891 PERSONAL HISTORY [...] 08/04/2016 SANGEETHA VALLADARES MD Ot Z79.899 OTHER PENITENTIARY (CURRENT) DRUG THERAPY 08/04/2016 SANGEETHA VALLADARES MD Ot Z87.891 PERSONAL HISTORY OF NICOTINE DEPENDENCE 01/16/2017 SERVANDO STRAUSS, BALBIR Bolaños Ot 719.45 JOINT PAIN-PELVIS 01/16/2017 ANKUR LACEY DPM Ot 729.5 PAIN IN LIMB 01/16/2017 ANKUR LACEY DPM Ot 782.2 LOCAL SUPRFICIAL SWELLNG 01/16/2017 Ot 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 01/16/2017 Ot I48.91 UNSPECIFIED ATRIAL FIBRILLATION 01/16/2017 Ot Z79.01 PENITENTIARY (CURRENT) USE OF ANTICOAGULANT 01/16/2017 TROTTER DO, ERIKA L Ot E03.9 HYPOTHYROIDISM, UNSPECIFIED 01/16/2017 TROTTER DO, ERIKA L Ot E03.9 HYPOTHYROIDISM, UNSPECIFIED 01/16/2017 TROTTER DO, ERIKA L Ot E03.9 HYPOTHYROIDISM, UNSPECIFIED 01/16/2017 TROTTER DO, ERIKA L Ot E03.9 HYPOTHYROIDISM, UNSPECIFIED 02/16/2017 SERVANDO STRAUSS, BALBIR Bolaños Ot 719.45 JOINT PAIN-PELVIS 02/16/2017 BLAGENTRYHO DPM, ANKUR Cardoso Ot 729.5 PAIN IN LIMB 02/16/2017 MANIHO DPM, ANKUR Cardoso Ot 782.2 LOCAL SUPRFICIAL SWELLNG 02/16/2017 Ot 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 02/16/2017 Ot I48.91 UNSPECIFIED ATRIAL FIBRILLATION 02/16/2017 Ot Z79.01 COVER INSPECTOR (CURRENT) USE OF ANTICOAGULANT 02/16/2017 TROTTER DO, ERIKA L Ot E03.9 HYPOTHYROIDISM, UNSPECIFIED 02/16/2017 TROTTER DO, ERIKA L Ot E03.9 HYPOTHYROIDISM, UNSPECIFIED 02/16/2017 TROTTER DO, ERIKA L Ot E03.9 HYPOTHYROIDISM, UNSPECIFIED 02/16/2017 TROTTER DO, ERIKA L Ot E03.9 HYPOTHYROIDISM, UNSPECIFIED 02/16/2017 KIARA DO, PEDRO K Ot E03.9 HYPOTHYROIDISM, UNSPECIFIED 02/16/2017 KIARA DO, PEDRO K Ot I10 ESSENTIAL (PRIMARY) HYPERTENSION 02/16/2017 KIARA DO, PEDRO K Ot I48.91 UNSPECIFIED ATRIAL FIBRILLATION 02/16/2017 KIARA DO, PEDRO K Ot K21.9 GASTRO-ESOPHAGEAL REFLUX DISEASE WITHOUT 02/16/2017 KIARA DO, PEDRO K Ot R10.31 RIGHT LOWER QUADRANT PAIN 02/16/2017 KIARA DO PEDRO K Ot Z79.01 PENITENTIARY (CURRENT) USE OF ANTICOAGULANT 02/16/2017 KIARA DO PEDRO K Ot Z82.49 FAMILY HX OF ISCHEM HEART DIS AND OTH DI 02/16/2017 KIARA DO PEDRO K Ot Z87.19 PERSONAL HISTORY OF OTHER DISEASES OF TH 02/16/2017 PEDRO CRAIG DO Ot Z87.59 PERSONAL HISTORY OF COMP OF PREG, CHLDBR 02/16/2017 PEDRO CRAIG DO Ot Z90.89 ACQUIRED ABSENCE OF OTHER ORGANS 02/16/2017 PEDRO CRAIG DO Ot Z98.51 TUBAL LIGATION STATUS 02/20/2017 PEDRO CRAIG DO Ot E03.9 HYPOTHYROIDISM, UNSPECIFIED 02/20/2017 PEDRO CRAIG DO Ot I10 ESSENTIAL (PRIMARY) HYPERTENSION 02/20/2017 PEDRO CRAIG DO Ot I48.91 UNSPECIFIED ATRIAL FIBRILLATION 02/20/2017 PEDRO CRAIG DO Ot K21.9 GASTRO-ESOPHAGEAL REFLUX DISEASE WITHOUT 02/20/2017 PEDRO CRAIG DO Ot R10.31 RIGHT LOWER QUADRANT PAIN 02/20/2017 PEDRO CRAIG DO Ot Z79.01 COVER INSPECTOR (CURRENT) USE OF ANTICOAGULANT 02/20/2017 PEDRO CRAIG [...] DO Ot Z98.51 TUBAL LIGATION STATUS 02/20/2017 SERVANDO STRAUSS, BALBIR Bolaños Ot 719.45 JOINT PAIN-PELVIS 02/20/2017 MANIHO DPM, ANKUR Cardoso Ot 729.5 PAIN IN LIMB 02/20/2017 ABHIJIT DPM, ANKUR Cardoso Ot 782.2 LOCAL SUPRFICIAL SWELLNG 02/20/2017 Ot 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 02/20/2017 Ot I48.91 UNSPECIFIED ATRIAL FIBRILLATION 02/20/2017 Ot Z79.01 COVER INSPECTOR (CURRENT) USE OF ANTICOAGULANT 02/20/2017 TROTTER DO, ERIKA L Ot E03.9 HYPOTHYROIDISM, UNSPECIFIED 02/20/2017 TROTETR DO, ERIKA L Ot E03.9 HYPOTHYROIDISM, UNSPECIFIED 02/20/2017 TROTTER DO, ERIKA L Ot E03.9 HYPOTHYROIDISM, UNSPECIFIED 02/20/2017 TROTTER DO, ERIKA L Ot E03.9 HYPOTHYROIDISM, UNSPECIFIED 11/21/2017 SERVANDO STRAUSS, BALBIR Bolaños Ot 719.45 JOINT PAIN-PELVIS 11/21/2017 BLANCHO DPM, ANKUR Cardoso Ot 729.5 PAIN IN LIMB 11/21/2017 BLANCHO DPM, ANKUR Cardoso Ot 782.2 LOCAL SUPRFICIAL SWELLNG 11/21/2017 Ot 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 11/21/2017 Ot I48.91 UNSPECIFIED ATRIAL FIBRILLATION 11/21/2017 Ot Z79.01 PENITENTIARY (CURRENT) USE OF ANTICOAGULANT 11/21/2017 TROTTER DO, ERIKA [...] I48.91 UNSPECIFIED ATRIAL FIBRILLATION 11/22/2017 Ot Z79.01 COVER INSPECTOR (CURRENT) USE OF ANTICOAGULANT 11/22/2017 TROTTER DO, ERIKA L Ot E03.9 HYPOTHYROIDISM, UNSPECIFIED 11/22/2017 TROTTER DO, ERIKA L Ot E03.9 HYPOTHYROIDISM, UNSPECIFIED 11/22/2017 TROTTER DO, ERIKA L Ot E03.9 HYPOTHYROIDISM, UNSPECIFIED 11/22/2017 TROTTER DO, ERIKA L Ot E03.9 HYPOTHYROIDISM, UNSPECIFIED 11/28/2017 BALBIR AL MD Ot 719.45 JOINT PAIN-PELVIS 11/28/2017 BLANCHO DPM, ANKUR Cardoso Ot 729.5 PAIN IN LIMB 11/28/2017 BLANCHO DPM, ANKUR Cardoso Ot 782.2 LOCAL SUPRFICIAL SWELLNG 11/28/2017 Ot 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 11/28/2017 Ot I48.91 UNSPECIFIED ATRIAL FIBRILLATION 11/28/2017 Ot Z79.01 PENITENTIARY (CURRENT) USE OF ANTICOAGULANT 11/28/2017 TROTTER DO, ERIKA L Ot E03.9 HYPOTHYROIDISM, UNSPECIFIED 11/28/2017 TROTTER DO, ERIKA L Ot E03.9 HYPOTHYROIDISM, UNSPECIFIED 11/28/2017 TROTTER DO, ERIKA L Ot E03.9 HYPOTHYROIDISM, UNSPECIFIED 11/28/2017 TROTTER DO, ERIKA L Ot E03.9 HYPOTHYROIDISM, UNSPECIFIED 11/29/2017 SERVANDO STRAUSS, BALBIR Bolaños Ot 719.45 JOINT PAIN-PELVIS 11/29/2017 BLAGENTRYHO DPM, ANKUR Cardoso Ot 729.5 PAIN IN LIMB 11/29/2017 MANIHO DPM, ANKUR Cardoso Ot 782.2 LOCAL SUPRFICIAL SWELLNG 11/29/2017 Ot 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 11/29/2017 Ot I48.91 UNSPECIFIED ATRIAL FIBRILLATION 11/29/2017 Ot Z79.01 PENITENTIARY (CURRENT) USE OF ANTICOAGULANT 11/29/2017 TROTTER DO, ERIKA L Ot E03.9 HYPOTHYROIDISM, UNSPECIFIED 11/29/2017 TROTTER DO, ERIKA L Ot E03.9 HYPOTHYROIDISM, UNSPECIFIED 11/29/2017 TROTTER DO, ERIKA L Ot E03.9 HYPOTHYROIDISM, UNSPECIFIED 11/29/2017 TROTTER DO, ERIKA L Ot E03.9 HYPOTHYROIDISM, UNSPECIFIED 05/14/2018 BAIVIDA EPPS L OBGYN HOSPITALIST PHYSICIAN Ot E66.09 OTHER OBESITY DUE TO EXCESS CALORIES 05/14/2018 BAIMA VIDA L OBGYN HOSPITALIST PHYSICIAN Ot I48.0 PAROXYSMAL ATRIAL FIBRILLATION 05/14/2018 BAIMA, VIDA L OBGYN HOSPITALIST PHYSICIAN Ot Z98.890 OTHER SPECIFIED POSTPROCEDURAL STATES 05/31/2018 BAIMA, VIDA L OBGYN HOSPITALIST PHYSICIAN Ot E66.09 OTHER OBESITY DUE TO EXCESS CALORIES 05/31/2018 BAIMAVIDA L OBGYN HOSPITALIST PHYSICIAN Ot I48.0 PAROXYSMAL ATRIAL FIBRILLATION 05/31/2018 BAIMA, VIDA L OBGYN HOSPITALIST PHYSICIAN Ot Z98.890 OTHER SPECIFIED POSTPROCEDURAL STATES 06/08/2018 BAIMA, VIDA L OBGYN HOSPITALIST PHYSICIAN Ot E66.09 OTHER OBESITY DUE TO EXCESS CALORIES 06/08/2018 BAIMA, VIDA L OBGYN HOSPITALIST PHYSICIAN Ot I48.0 PAROXYSMAL ATRIAL FIBRILLATION 06/08/2018 BAIVIDA EPPS OBGYN HOSPITALIST PHYSICIAN Ot Z98.890 OTHER SPECIFIED POSTPROCEDURAL STATES 07/13/2018 VIDA HALL OBGYN HOSPITALIST PHYSICIAN Ot E66.09 OTHER OBESITY DUE TO EXCESS CALORIES 07/13/2018 VIDA HALL OBGYN HOSPITALIST PHYSICIAN Ot I48.0 PAROXYSMAL ATRIAL FIBRILLATION 07/13/2018 BAIVIDA EPPS OBGYN HOSPITALIST PHYSICIAN Ot Z98.890 OTHER SPECIFIED POSTPROCEDURAL STATES 07/13/2018 ALFONSO MC MD Ot E03.9 HYPOTHYROIDISM, UNSPECIFIED 07/13/2018 ALFONSO MC MD Ot I10 ESSENTIAL (PRIMARY) HYPERTENSION 07/13/2018 ALFONSO MC MD Ot I48.91 UNSPECIFIED ATRIAL FIBRILLATION 07/13/2018 ALFONSO MC MD Ot K21.9 GASTRO-ESOPHAGEAL REFLUX DISEASE WITHOUT 07/13/2018 ALFONSO MC MD Ot M25.512 PAIN IN LEFT SHOULDER 07/13/2018 ALFONSO MC MD Ot R07.1 CHEST PAIN ON BREATHING 07/13/2018 ALFONSO MC MD Ot R07.81 PLEURODYNIA 07/13/2018 ALFONSO MC MD Ot R40.2142 COMA SCALE, EYES OPEN, SPONTANEOUS, EMR 07/13/2018 ALFONSO MC MD Ot R40.2252 COMA SCALE, BEST VERBAL RESPONSE, ORIENT 07/13/2018 ALFONSO MC MD Ot R40.2362 COMA SCALE, BEST MOTOR RESPONSE, OBEYS C 07/13/2018 ALFONSO MC MD Ot W10.8XXA FALL (ON) (FROM) OTHER STAIRS AND STEPS, 07/13/2018 ALFONSO MC MD Ot Z79.02 COVER INSPECTOR (CURRENT) USE OF ANTITHROMBOTI 07/13/2018 ALFONSO MC MD Ot Z79.82 PENITENTIARY (CURRENT) USE OF ASPIRIN 07/13/2018 ALFONSO MC MD, Ot Z82.49 FAMILY HX OF ISCHEM HEART DIS AND OTH DI 07/13/2018 ALFONSO MC MD Ot Z87.19 PERSONAL HISTORY OF OTHER DISEASES OF TH 07/13/2018 ALFONSO MC MD Ot Z87.440 PERSONAL HISTORY OF URINARY (TRACT) INFE 07/13/2018 ALFONSO MC MD Ot Z87.891 PERSONAL HISTORY OF NICOTINE DEPENDENCE 07/13/2018 ALFONSO MC MD Ot Z88.0 ALLERGY STATUS TO PENICILLIN 07/13/2018 ALFONSO MC MD Ot Z88.2 ALLERGY STATUS TO SULFONAMIDES STATUS 07/13/2018 ALFONSO MC MD Ot Z88.8 ALLERGY STATUS TO OTH DRUG/MEDS/BIOL SUB 07/13/2018 ALFONSO MC MD Ot Z90.89 ACQUIRED ABSENCE OF OTHER ORGANS 07/13/2018 ALFONSO MC MD Ot Z98.51 TUBAL LIGATION STATUS 07/13/2018 ALFONSO MC MD Ot Z98.890 OTHER SPECIFIED POSTPROCEDURAL STATES 07/16/2018 ALFONSO MC MD Ot E03.9 HYPOTHYROIDISM, UNSPECIFIED 07/16/2018 ALFONSO MC MD Ot I10 ESSENTIAL (PRIMARY) HYPERTENSION 07/16/2018 ALFONSO MC MD Ot I48.91 UNSPECIFIED ATRIAL FIBRILLATION 07/16/2018 ALFONSO MC MD Ot K21.9 GASTRO-ESOPHAGEAL REFLUX DISEASE WITHOUT 07/16/2018 ALFONSO MC MD Ot M25.512 PAIN IN LEFT SHOULDER 07/16/2018 ALFONSO MC MD Ot R07.1 CHEST PAIN ON BREATHING 07/16/2018 ALFONSO MC MD Ot R07.81 PLEURODYNIA 07/16/2018 ALFONSO MC MD Ot R40.2142 COMA SCALE, EYES OPEN, SPONTANEOUS, EMR 07/16/2018 ALFONSO MC MD Ot R40.2252 COMA SCALE, BEST VERBAL RESPONSE, ORIENT 07/16/2018 ALFNOSO MC MD Ot R40.2362 COMA SCALE, BEST MOTOR RESPONSE, OBEYS C 07/16/2018 ALFONSO MC MD Ot W10.8XXA FALL (ON) (FROM) OTHER STAIRS AND STEPS, 07/16/2018 ALFONSO MC MD Ot Z79.02 PENITENTIARY (CURRENT) USE OF ANTITHROMBOTI 07/16/2018 ALFONSO MC MD Ot Z79.82 PENITENTIARY (CURRENT) USE OF ASPIRIN 07/16/2018 ALFONSO MC MD Ot Z82.49 FAMILY HX OF ISCHEM HEART DIS AND OTH DI 07/16/2018 ALFONSO MC MD Ot Z87.19 PERSONAL HISTORY OF OTHER DISEASES OF TH 07/16/2018 ALFONSO MC MD Ot Z87.440 PERSONAL HISTORY OF URINARY (TRACT) INFE 07/16/2018 ALFONSO MC MD Ot Z87.891 PERSONAL HISTORY OF NICOTINE DEPENDENCE 07/16/2018 ALFONSO MC MD Ot Z88.0 ALLERGY STATUS TO PENICILLIN 07/16/2018 ALFONSO MC MD Ot Z88.2 ALLERGY STATUS TO SULFONAMIDES STATUS 07/16/2018 ALFONSO MC MD Ot Z88.8 ALLERGY STATUS TO OTH DRUG/MEDS/BIOL SUB 07/16/2018 ALFONSO MC MD Ot Z90.89 ACQUIRED ABSENCE OF OTHER ORGANS 07/16/2018 ALFONSO MC MD Ot Z98.51 TUBAL LIGATION STATUS 07/16/2018 ALFONSO MC MD Ot Z98.890 OTHER SPECIFIED POSTPROCEDURAL STATES 07/19/2018 ALFONSO MC MD Ot E03.9 HYPOTHYROIDISM, UNSPECIFIED 07/19/2018 ALFONSO MC MD Ot I10 ESSENTIAL (PRIMARY) HYPERTENSION 07/19/2018 ALFONSO MC MD Ot I48.91 UNSPECIFIED ATRIAL FIBRILLATION 07/19/2018 ALFONSO MC MD Ot K21.9 GASTRO-ESOPHAGEAL REFLUX DISEASE WITHOUT 07/19/2018 ALFONSO MC MD Ot M25.512 PAIN IN LEFT SHOULDER 07/19/2018 ALFONSO MC MD Ot R07.1 CHEST PAIN ON BREATHING 07/19/2018 ALFONSO MC MD Ot R07.81 PLEURODYNIA 07/19/2018 ALFONSO MC MD Ot R40.2142 COMA SCALE, EYES OPEN, SPONTANEOUS, EMR 07/19/2018 ALFONSO MC MD Ot R40.2252 COMA SCALE, BEST VERBAL RESPONSE, ORIENT 07/19/2018 ALFONSO MC MD Ot R40.2362 COMA SCALE, BEST MOTOR RESPONSE, OBEYS C 07/19/2018 ALFONSO MC MD Ot W10.8XXA FALL (ON) (FROM) OTHER STAIRS AND STEPS, 07/19/2018 ALFONSO MC MD Ot Z79.02 COVER INSPECTOR (CURRENT) USE OF ANTITHROMBOTI 07/19/2018 ALFONSO MC MD Ot Z79.82 PENITENTIARY (CURRENT) USE OF ASPIRIN 07/19/2018 ALFONSO MC MD Ot Z82.49 FAMILY HX OF ISCHEM HEART DIS AND OTH DI 07/19/2018 ALFONSO MC MD, Ot Z87.19 PERSONAL HISTORY OF OTHER DISEASES OF TH 07/19/2018 ALFONSO MC MD Ot Z87.440 PERSONAL HISTORY OF URINARY (TRACT) INFE 07/19/2018 ALFONSO MC MD, Ot Z87.891 PERSONAL HISTORY OF NICOTINE DEPENDENCE 07/19/2018 ALFONSO MC MD Ot Z88.0 ALLERGY STATUS TO PENICILLIN 07/19/2018 ALFONSO MC MD, Ot Z88.2 ALLERGY STATUS TO SULFONAMIDES STATUS 07/19/2018 ALFONSO MC MD, Ot Z88.8 ALLERGY STATUS TO OTH DRUG/MEDS/BIOL SUB 07/19/2018 ALFONSO MC MD, Ot Z90.89 ACQUIRED ABSENCE OF OTHER ORGANS 07/19/2018 ALFONSO MC MD Ot Z98.51 TUBAL LIGATION STATUS 07/19/2018 ALFONSO MC MD, Ot Z98.890 OTHER SPECIFIED POSTPROCEDURAL STATES 08/03/2018 SANGEETHA VALLADARES MD Ot Z01.818 ENCOUNTER FOR OTHER PREPROCEDURAL EXAMIN 08/08/2018 SANGEETHA VALLADARES MD, Ot Z01.818 ENCOUNTER FOR OTHER PREPROCEDURAL EXAMIN Procedures There is no data. Results Test Result Range THYROID STIMULATING HORMONE - 01/07/16 05:38 THYROID STIMULATING HORMONE 2.06 u[iU]/mL 0.35-4.94 THYROID STIMULATING HORMONE - 05/09/16 05:57 THYROID STIMULATING HORMONE 2.57 u[iU]/mL 0.35-4.94 Methicillin resistant Staphylococcus aureus (MRSA) screening culture - 07/29/16 10:47 Methicillin resistant Staphylococcus aureus (MRSA) screening [...] Automated erythrocyte mean corpuscular hemoglobin concentration measurement (mass/volume) 35 g/dL 32-36 Automated erythrocyte distribution width ratio 13.1 % 10.0- 14.5 Automated blood platelet count (count/volume) 215 10*3/uL [...] Blood monocytes automated count (number/volume) 0.4 10*3 0.0- 1.0 Automated eosinophil count 0.1 10*3/uL 0.0-0.3 Automated [...] Serum or plasma aspartate aminotransferase measurement (enzymatic activity/volume) 15 U/L 5-34 Serum or plasma alanine aminotransferase measurement (enzymatic activity/volume) 19 U/L 0-55 Serum or plasma protein measurement (mass/volume) 6.9 g/dL 6.4-8.2 Serum or plasma albumin measurement (mass/volume) 4.0 g/dL 3.2-4.5 Serum or plasma amylase measurement (enzymatic activity/volume) - 02/16/17 09:42 Serum or plasma amylase measurement (enzymatic activity/volume) 42 U/L 25-125 Lipase - 02/16/17 09:42 Lipase 11 U/L 8-78 Complete urinalysis with reflex to culture - 02/16/17 09:54 Urine color determination YELLOW NRG Urine clarity determination CLEAR NRG Urine pH measurement by test strip 5 5-9 Specific gravity of urine by test strip 1.020 1.016-1.022 Urine protein assay by test strip, semi-quantitative [...] sediment leukocyte count by microscopy (number/high power field) RARE NRG Bacteria detection in urine sediment by light microscopy FEW NRG Squamous epithelial cells detection in urine sediment by light microscopy 2-5 NRG Crystals detection in urine sediment by light microscopy NONE NRG Casts detection in urine sediment by light microscopy NONE NRG Mucus detection in urine sediment by light microscopy NEGATIVE NRG Complete urinalysis with reflex to culture NO NRG Methicillin resistant Staphylococcus aureus (MRSA) screening culture - 08/02/18 12:00 Methicillin resistant Staphylococcus aureus (MRSA) screening culture NEG NRG Encounters ACCT No. Visit Date/Time Discharge Status Pt. Type Provider Facility Loc./Unit Complaint [id number] 08/09/2018 09:41:00 08/09/2018 23:59:59 CLS Outpatient GRACIE JOSE ALEJANDRO MAYTECHINEDU GRAHAM [facility] RAD Z91.81 HX OF FALL [id number] 08/08/2018 09:45:00 08/08/2018 23:59:59 CLS Preadmit SANGEETHA VALLADARES MD [facility] SDC LEFT ROTATOR CUFF TEAR [id number] 08/02/2018 11:29:00 08/02/2018 12:49:00 DIS Outpatient SANGEETHA VALLADARES MD [facility] PREOP LEFT ROTATOR CUFF TEAR [id number] 07/13/2018 19:53:00 07/13/2018 22:14:00 DIS Emergency JESUSITA STRAUSS, ALFONSO Millan [facility] ER FALL/PAIN IN CHEST WITH DEEP BREATH [id number] 05/11/2018 07:30:00 05/11/2018 23:59:59 CLS Outpatient VIDA HALL [facility] CARD PAF, HISTORY OF THROIDECTOMY, OBESITY [id number] 03/08/2018 07:31:00 03/08/2018 23:59:59 CLS Preadmit SANGEETHA WADDELL MD [facility] SLEEP SNORING,SLEEP DISTURBANCE [id number] 02/16/2017 09:04:00 02/16/2017 12:32:00 DIS Emergency PEDRO CRAIG DO [facility] ER RT SIDE PAIN [id number] 08/03/2016 08:14:00 08/03/2016 15:25:00 DIS Outpatient SANGEETHA VALLADARES MD [facility] SDC RIGHT KNEE TORN MEDIAL MENISCUS [id number] 07/29/2016 10:24:00 07/29/2016 10:55:00 DIS Outpatient SANGEETHA VALLADARES MD [facility] PREOP RIGHT KNEE TORN MEDIAL MENISCUS [id number] 05/09/2016 05:43:00 05/09/2016 23:59:59 CLS Outpatient ERIKA TROTTER DO [facility] LAB CPT 8443 [id number] 01/07/2016 05:29:00 01/07/2016 23:59:59 CLS Outpatient TROTTER DO, ERIKA L [facility] WSo HYPOTHYROIDISM [id number] 09/03/2015 05:40:00 09/03/2015 23:59:59 CLS Outpatient TROTTER DO, ERIKA L [facility] LAB HYPOTHYROIDISM [id number] 09/01/2015 00:00:00 09/01/2015 04:02:00 DIS Emergency CHRIS BLACKWELL MD T [facility] ER TILLMAN [id number] 07/29/2015 06:19:00 07/29/2015 23:59:59 CLS Outpatient SERGO DO, ERIKA L [facility] LAB HYPOTHYROIDISM [id number] 05/20/2015 07:31:00 05/20/2015 08:59:00 DIS Emergency SINGH YARITZA HOPPER L [facility] ER IRR HEART RATE [id number] 05/15/2015 11:37:00 05/16/2015 12:25:00 DIS Inpatient DIMPLE PETERSON DOI [facility] CSD NEW ONSET A-FIB W/RVR THYROID DYSFUNCTION [id number] 08/14/2014 10:52:00 08/14/2014 23:59:59 CLS Outpatient ANKUR LACEY DPM [facility] RAD GANGLION CYST [id number] 05/17/2013 08:28:00 05/17/2013 23:59:59 CLS Outpatient BALBIR AL MD [facility] RAD PAINFUL RT HIP [id number] 06/25/2015 07:39:00 Document Registration [id number] 06/22/2018 09:00:00 06/22/2018 23:59:59 CLS Outpatient MATTHIEU HORNER [id number] 08/14/2014 10:53:30 ACT Document Registration
[2018-08-15] MEDS ORDERED: CLINDAMYCIN 600 MG/50 ML IVPB 50 ML IV ONE (06:15)
[2018-08-15] MEDS ORDERED: NITR100C10 PO (06:39)
[2018-08-15] MEDS ORDERED: ONDANSETRON 4 MG/2 ML (SDV) Z0FRAN IV ONE (06:45)
[2018-08-15] MEDS ORDERED: SCOPOLAMINE 1.5 MG (TRANSDERM-SCOP) PATCH TOP ONE (06:45)
[2018-08-15] MEDS ORDERED: FAMOTIDINE 20MG/2ML IV (PEPCID) IV ONE (06:45)
[2018-08-15] MEDS ORDERED: ONDANSETRON 4 MG/2 ML (SDV) Z0FRAN ONE ×2 (06:46→08:30)
[2018-08-15] MEDS ORDERED: FAMOTIDINE 20MG/2ML IV (PEPCID) ONE (06:46)
[2018-08-15] MEDS ORDERED: SCOPOLAMINE 1.5 MG (TRANSDERM-SCOP) PATCH ONE (06:46)
[2018-08-15] MEDS ORDERED: BUPIVACAINE 0.25% 30 ML (SENSORCAINE) VIAL ONE (06:48)
[2018-08-15] MEDS ORDERED: morphine PF (DURAMORPH) 10 MG/10 ML AMP ONE (06:48)
[2018-08-15] MEDS ORDERED: fentaNYL INJECTION 100 MCG/2 ML AMP ONE (06:56)
[2018-08-15] MEDS ORDERED: MIDAZOLAM 2 MG/2 ML (VERSED) VIAL ONE (06:57)
[2018-08-15] MEDS: LACTATED RINGERS 1,000 ML IV PRN ×2 (06:58→08:33)
--- NOTE | 2018-08-15 07:24 | Progress Note-Pre Operative ---
Pre-Operative Progress Note H&P Reviewed The H&P was reviewed, patient examined and no changes noted. Date Seen by Provider: August 15, 2018 Time Seen by Provider: 07:23 Date H&P Reviewed: August 15, 2018 Time H&P Reviewed: 07:23 Pre-Operative Diagnosis: left SLAP and rotator cuff tears SANGEETHA VALLADARES MD August 15, 2018 07:24
--- NOTE | 2018-08-15 07:25 | Progress Note-Post Operative ---
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
[2018-08-15] MEDS ORDERED: oxyCODONE/APAP 5/325MG (PERCOCET 5) TABLET PO PRN (07:30)
[2018-08-15] MEDS ORDERED: NEOSTIGMINE 1 MG/ML 5 ML SYRINGE ONE (08:30)
[2018-08-15] MEDS ORDERED: SEVOFLURANE (ULTANE) 15 ML INHAL SOLN ONE (08:30)
[2018-08-15] MEDS ORDERED: ROCURONIUM 10 MG/ML 5 ML SYRINGE IV ONE (08:30)
[2018-08-15] MEDS ORDERED: DEXAMETHASONE 10 MG/ML (DECADRON) 1 ML VIAL ONE (08:30)
[2018-08-15] MEDS ORDERED: proPOfol 200 MG/20 ML (DIPRIVAN) VIAL IV ONE (08:30)
[2018-08-15] MEDS ORDERED: BUPIVACAINE 0.5% 30 ML (SENSORCAINE) VIAL ONE (08:30)
[2018-08-15] MEDS ORDERED: GLYCOPYRROLATE 0.2 MG/ML (ROBINUL) 2 ML VIAL ONE (08:30)
[2018-08-15] MEDS ORDERED: LIDOCAINE PF 2% 5 ML (XYLOCAINE) VIAL ONE (08:30)
[2018-08-15] MEDS ORDERED: morphine INJ 10 MG/ML 1ML (SYR OR VIAL) IVP ONE (09:00)
[2018-08-15] MEDS ORDERED: ONDANSETRON 4 MG/2 ML (SDV) Z0FRAN IVP PRN (09:00)
[2018-08-15] MEDS ORDERED: OXYC-471 PO (10:37)
--- NOTE | 2018-08-15 12:30 | OPERATIVE REPORT ---
DATE OF SERVICE: 08/15/2018 PREOPERATIVE DIAGNOSES: 1. Left rotator cuff tear. 2. Left shoulder superior labrum anterior posterior tear. 3. Left shoulder labral tear. POSTOPERATIVE DIAGNOSES: 1. Left rotator cuff tear. 2. Left shoulder superior labrum anterior posterior tear. 3. Left shoulder labral tear. PROCEDURE: 1. Left shoulder open rotator cuff repair. 2. Left shoulder arthroscopic biceps tenotomy. 3. Left shoulder arthroscopic labral debridement. 4. Left shoulder arthroscopic acromioplasty. SURGEON: Carl Valladares MD [place] MATE: SANTOS Campuzano, who assisted throughout the procedure and closed the incisions. ANESTHESIA: General endotracheal plus interscalene nerve block by Dr. Herndon. ESTIMATED BLOOD LOSS: Minimal. DRAINS: None. COMPLICATIONS: None. POSTOPERATIVE PLAN: Sling wear and passive range of motion for 4 weeks. The patient was transferred to the recovery room, awake and in stable condition. STATEMENT OF MEDICAL NECESSITY: The patient is a 68-year-old right hand dominant female with complaints of left shoulder pain and weakness. She underwent an MRI, which showed a full thickness retracted supraspinatus tear as well as a SLAP tear and an anterior labral tear. Due to functional impairment and failure to improve with conservative measures, the patient elected to proceed with surgical intervention. Examination under anesthesia revealed forward elevation of 170 degrees, external rotation of 85 degrees and internal rotation of 70 degrees. Arthroscopic findings demonstrated a full thickness supraspinatus tear approximately 3 x 3 cm in size. There was a type 2 SLAP tear with near complete disruption of the biceps anchor. There was an anterior labral flap at the 3 o'clock position with no detachment of the capsular labral complex. The glenoid demonstrated mild grade I chondral wear centrally, but no unstable chondral flaps in the humeral head or glenoid. Subacromial space demonstrated moderate bursitis with a sloping of the anterolateral acromion. PROCEDURE: After risks and benefits of procedure were discussed and questions were answered , an informed consent was signed and placed on the chart. The operative site was confirmed in the preoperative holding area and initialed by the surgeon. The patient was transferred to the operating room and after adequate levels of regional plus general endotracheal anesthetic were obtained, a timeout was called confirming the operative site. The left shoulder and upper extremity were prepped and draped in the usual sterile fashion. After performing examination under anesthesia, the shoulder joint was injected with 20 mL of fluid as was the subacromial space. A standard posterior portal was placed under direct visualization. Anterior portal was created in the interval between the biceps, subscapularis and glenoid. The biceps anchor was released and the stump was debrided with a shaver. The anterior labral flap was debrided with the shaver as well. Scope was redirected into the subacromial space and a lateral portal was created. Bursectomy was performed. The acromion was planed to a flat type 1 acromion. The lateral portal was then extended. The deltoid was split in line with its fibers leaving it attached to the acromion. The rotator cuff tear was mobilized and pulled anteriorly and a single corkscrew anchor was placed and a modified Ermias-Werner repair was performed. This covered approximately two-thirds of the defect. The anterior portion of the defect remained uncovered, but there was no undue tension noted at the repair site. The wound was copiously irrigated. The deltoid was repaired in side to side fashion using #2 FiberWire in [id number] interrupted fashion. The wound was further irrigated. A 2-0 Vicryl was used to reapproximate subcutaneous tissue. The skin was closed with 4-0 nylon in a running alternating horizontal mattress fashion. The portal sites were closed with 4-0 nylon in a simple interrupted fashion. Shoulder was injected with Duramorph. The portal sites were infiltrated with plain Marcaine. A soft dressing was applied and a sling and the patient was transferred to the recovery room awake and in stable condition. Job ID: [id number] DocumentID: [id number] Dictated Date: 08/15/2018 08:41:18 Human Resources Intern Date: 08/15/2018 12:30:05 Dictated By: CARL VALLADARES MD
--- NOTE | 2018-08-15 12:35 | Anesthesia-General Post-Op ---
General Patient Condition Mental Status/LOC: Same as Preop Cardiovascular: Satisfactory Nausea/Vomiting: Absent Respiratory: Satisfactory Pain: Controlled Complications: Absent Post Op Complications Complications None Follow Up Care/Instructions Patient Instructions None needed. Anesthesia/Patient Condition Patient Condition Patient is doing well, no complaints, stable vital signs, no apparent adverse anesthesia problems. No complications reported per nursing. ANNE PATEL CRNA August 15, 2018 12:35
== END 2018-08-15 11:30 | disposition home or self-care (01) ==
LOC: SDC 06:08
PROVIDERS: ATTEND Orthopaedic Surgery
DX: M75.102 Unspecified rotator cuff tear or rupture of left shoulder, not specified as traumatic (principal); S43.432A Superior glenoid labrum lesion of left shoulder, initial encounter; E03.9 Hypothyroidism, unspecified; D64.9 Anemia, unspecified; K21.9 Gastro-esophageal reflux disease without esophagitis; I48.91 Unspecified atrial fibrillation; Z79.899 Other long term (current) drug therapy; Z79.82 Long term (current) use of aspirin; Z88.1 Allergy status to other antibiotic agents; Z88.2 Allergy status to sulfonamides; Z87.891 Personal history of nicotine dependence; I10 Essential (primary) hypertension; M19.91 Primary osteoarthritis, unspecified site; E66.01 Morbid (severe) obesity due to excess calories; Z68.42 Body mass index [BMI] 45.0-49.9, adult

== ENCOUNTER → 2018-12-27 | Outpatient (CLI) | payer MEDICARE ==
[~2018-12-27] MED LIST changes: +NITR100C10 PO; +OXYC-471 PO; +RANI-324 PO; -RANI75TA21 PO
--- NOTE | 2018-12-27 10:52 | Diagnostic Imaging Report ---
PROCEDURE: CT abdomen and pelvis without contrast. TECHNIQUE: Multiple contiguous axial images were obtained through the abdomen and pelvis without the use of intravenous contrast. Auto Exposure Controls were utilized during the CT exam to meet ALARA standards for radiation dose reduction. INDICATION: Urinary tract infections FINDINGS: The previous CT abdomen/pelvis exam of 02/16/2017 noted diverticulosis of the sigmoid colon but failed to show any evidence for acute diverticulitis. There is no abnormality of the kidneys identified. On this study there is no distortion of the perinephric fat of either kidney to suggest an acute inflammatory/infectious process. There is no mass identified and there is no sign of nephrolithiasis or urolithiasis and the kidneys do not appear to be obstructed. The urinary bladder is only partially filled and consequently difficult to assess. There is no obvious bladder abnormality evident. The uterus is not enlarged. As noted on the prior exam there are a few diverticula in the sigmoid and descending colon but there is no sign of acute diverticulitis. The appendix was not particularly well visualized but there are no indirect signs of acute appendicitis. The liver, spleen, pancreas, adrenals, aorta and inferior vena cava are unremarkable for an acute abnormality. As suggested on the prior exam, the gallbladder is surgically absent. Stomach is filled with fluid and consequently difficult to assess. The lung bases are clear. The bone windows show no sign of a fracture or of a destructive lesion. IMPRESSION: 1. There is no acute abnormality of the abdomen and pelvis. In particular, there is no distortion of the perinephric fat to suggest pyelonephritis. Even so, clinical follow-up is recommended. 2. There is diverticulosis of the sigmoid and descending colon but there is no sign of acute diverticulitis. 3. The gallbladder is surgically absent. Dictated by: Dictated on workstation # [id number]
== END ==
LOC: RAD 09:36
PROVIDERS: ATTEND Urology
DX: K57.30 Diverticulosis of large intestine without perforation or abscess without bleeding (principal); Z87.440 Personal history of urinary (tract) infections; Z90.49 Acquired absence of other specified parts of digestive tract
CPT/HCPCS: 74176

== ENCOUNTER 2019-11-23 13:09 | Emergency (ER) | payer MEDICARE ==
[~2019-11-23] VITALS: Ht 167 cm; Wt 113.9 kg
[~2019-11-23 13:09] MED LIST changes: -METO-387 PO; +MTP25TSR PO
--- NOTE | 2019-11-23 14:18 | ED Headache ---
General Chief Complaint: Head/Cervical Problems Stated Complaint: HEADACHE Source: patient Exam Limitations: no limitations History of Present Illness Date Seen by Provider: Nov 23, 2019 Time Seen by Provider: 14:00 Initial Comments Abby Lopez is a well appearing 69 yo female who presented to ED for complaint of right temporal migraine that radiates into the right side of her forehead. Denies history of headaches. Pain is intermittent, sharp, and rates 8/10 at its worst. Took Tylenol for pain around 4am. Reports minimal improvement. Denies vision changes, weakness, vertigo, syncope, chest pain, cough, shortness of breath, fever, neck pain, N/V/D. Timing/Duration: other (At 3:00am ) Severity/Quality: mild Location: temporal (right ) Prior Headaches/Recent Trauma: no recent headache/trauma Modifying Factors: improves with medication (Tylenol ) Associated Symptoms: denies symptoms Allergies and Home Medications Allergies Coded Allergies: prednisone (Verified Allergy, Intermediate, FLUSHED/REDNESS, 08/02/18) Penicillins (Verified Allergy, Mild, HIVES, 08/02/18) Sulfa (Sulfonamide Antibiotics) (Verified Allergy, Mild, RASH, 08/02/18) Home Medications Aspirin 81 Mg Tablet.dr, 81 MG PO DAILY, (Reported) Cefdinir 300 Mg Capsule, 300 MG PO BID Prescribed by: ODALIS GONZALEZ on 11/23/192202 Cefdinir 300 Mg Capsule, 300 MG PO BID Prescribed by: ODALIS GONZALEZ on 11/23/19 1554 Diltiazem HCl 180 Mg Cap.er.24h, 360 MG PO DAILY, (Reported) Levothyroxine Sodium 125 Mcg Tablet, 125 MCG PO DAILY, (Reported) Nitrofurantoin Monohyd/M-Cryst 100 Mg Capsule, 100 MG PO BID, (Reported) Oxycodone HCl/Acetaminophen 1 Each Tablet, 1 EACH PO Q4H PRN for PAIN-SEVERE Prescribed by: FIONA NORTON on 08/15/18 1037 Ranitidine HCl 75 Mg Tablet, 75 MG PO HS, (Reported) Patient Home Medication List Home Medication List Reviewed: Yes Review of Systems Review of Systems Constitutional: no symptoms reported Eyes: No Symptoms Reported Ears, Nose, Mouth, Throat: ear pain (right ); denies ear discharge Respiratory: no symptoms reported, see HPI Cardiovascular: no symptoms reported Genitourinary: no symptoms reported Musculoskeletal: no symptoms reported Skin: no symptoms reported Psychiatric/Neurological: No Symptoms Reported Past Ldwthaj-Sowlcr-Xbglnx Hx Patient Social History Former Smoker, Quit: August 03, 1983 2nd Hand Smoke Exposure: No Recent Foreign Travel: No Contact w/Someone Who Travel: No Recent Hopitalizations: No Immunizations Up To Date Tetanus Booster (TDap): Less than 5yrs Seasonal Allergies Seasonal Allergies: No Past Medical History Surgeries: Yes (KNEE SCOPE, D&C AND HYSTEROSCOPY) Abdominal, Section, Ear Surgery, Gallbladder, Orthopedic, Thyroidectomy, Tubal Ligation Respiratory: No (possible sleep apnea) Cardiac: Yes Atrial Fibrillation, Hypertension Neurological: No 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 Sexually Transmitted Disease: No HIV/AIDS: No Genitourinary: No UTI-Chronic Gastrointestinal: Yes Gastroesophageal Reflux, Diverticulosis, Chronic Diarrhea Musculoskeletal: Yes (BONE SPURS, CHRONIC KNEE PAIN/ARTHRITIS) Arthritis, Chronic Back Pain Endocrine: Yes (PARTIAL THYROIDECTOMY FOR GOITER) Hypothyroidsim HEENT: Yes (GLASSES) Chronic Ear Infection Loss of Vision: Bilateral Hearing Impairment: Deaf Cancer: No Psychosocial: No Integumentary: No Blood Disorders: No Adverse Reaction/Blood Tranf: No (N/A) Family Medical History Arthritis 19 MOTHER Cardiovascular disease 19 MOTHER Completed stroke 19 FATHER 19 MOTHER Diabetes mellitus 19 MOTHER G8 BROTHER Fibrocystic disease of breast G8 SISTER Respiratory disorder G8 BROTHER (Sleep Apnea) Physical Exam Vital Signs Vital Signs - First Documented 11/23/19 13:35 Temp 37.1 Pulse 70 Resp 20 B/P (MAP) 152/76 (101) Pulse Ox 96 O2 Delivery Room Air Capillary Refill : Height, Weight, BMI Height: 5'4.00" Weight: 265lbs. 2.0oz. [id number]; 45.5 BMI Method:Stated General Appearance: WD/WN, no apparent distress HEENT: PERRL/EOMI; No TMs normal (Purulent discharge and retracted TM in right ear. External canal normal. ) Neck: non-tender, full range of motion, supple, normal inspection Cardiovascular: normal peripheral pulses, regular rate, rhythm Respiratory: chest non-tender, lungs clear, normal breath sounds, no respiratory distress, no accessory muscle use Gastrointestinal: normal bowel sounds, non tender, soft Back: normal inspection Extremities: normal range of motion, non-tender, normal capillary refill Psychiatric: alert, oriented x 3 Crainal Nerves: normal hearing, normal speech, PERRL; No abnormal speech, No facial paresthesias, No facial weakness Motor/Sensory: no motor deficit, no sensory deficit; No sensory deficit Skin: normal color, warm/dry Progress/Results/Core Measures Results/Orders Lab Results Laboratory Tests Test 11/23/19 14:54 Range/Units Erythrocyte Sedimentation Rate 8 0-30 MM/HR My Orders Orders - ODALIS GONZALEZ APRN Ct Head Wo (11/23/19 13:58) Erythrocyte Sedimentation Rate (11/23/19 13:58) Vital Signs/I&O 11/23/19 11/23/19 13:35 16:07 Temp 37.1 37.1 Pulse 70 70 Resp 20 20 B/P (MAP) 152/76 (101) 152/76 (101) Pulse Ox 96 96 O2 Delivery Room Air Progress Progress Note #1: Progress Note Post menopausal female with new onset headaches. Non contrast CT ordered to rule out bleed/ stroke. ESR ordered to evaluate for GCA. Progress Note #2: Progress Note Reviewed CT head and lab results. Discussed with her that the pain is likely from her ear. Reviewed POC and she is agreeable with plan. Diagnostic Imaging Diagonstic Imaging: CT Plain Films/CT/US/NM/MRI: head Comments NAME: ABBY LOPEZ [facility] REC#: [id number] PT STATUS: DEP ER : 1950 PHYSICIAN: ODALIS GONZALEZ APRN ADMIT DATE: 11/23/19/ER Signed Date of Exam:11/23/19 CT HEAD WO PROCEDURE: CT head without contrast. TECHNIQUE: Multiple contiguous axial images were obtained through the brain without the use of intravenous contrast. Auto Exposure Controls were utilized during the CT exam to meet ALARA standards for radiation dose reduction. INDICATION: Migraine. Headache. COMPARISON: CT head without contrast 09/01/2015. FINDINGS: No intracranial hemorrhage, mass effect, hydrocephalus or extra-axial fluid collections. No CT evidence of a territorial infarction. Osseous structures are intact. The visualized paranasal sinuses and mastoids are clear. IMPRESSION: No acute intracranial CT findings. Dictated by: Dictated on workstation # [id number] Dict: 11/23/19 1433 Trans: 11/23/19 1705 [facility] [id number] Interpreted by: BERNABE SEGURA MD Electronically signed by: BERNABE SEGURA MD 11/23/19 1705 Reviewed: Reviewed by Me Departure Impression Primary Impression: Otitis of right ear Additional Impression: Headache Disposition: 01 HOME, SELF-CARE Condition: Unchanged Departure-Patient Inst. Referrals: MATTHIEU HORNER MD (PCP/Family) Primary Care Physician Patient Instructions: Serous Otitis Media, Headache, Adult (DC) Add. Discharge Instructions: 1. Discharge home. 2. May take Tylenol as directed per package as needed for pain. May use warm cloth. 3. Take antibiotics as directed and complete full course. 4. Return for any new or concerning symptoms. All discharge instructions reviewed with patient and/or family. Voiced understanding. Scripts Cefdinir (Cefdinir) 300 Mg Capsule 300 MG PO BID for 7 Days, #14 CAP 0 Refills Prov: ODALIS OGNZALEZ SOFTWARE PROGRAM MANAGER 11/23/19 Cefdinir (Cefdinir) 300 Mg Capsule 300 MG PO BID for 7 Days, #14 CAP 0 Refills Prov: ODALIS GONZALEZ SOFTWARE PROGRAM MANAGER 11/23/19 Copy Copies To 1: MATTHIEU HORNER MD, STORMY D SOFTWARE PROGRAM MANAGER Nov 23, 2019 14:18
--- NOTE | 2019-11-23 14:35 | Diagnostic Imaging Report ---
PROCEDURE: CT head without contrast. TECHNIQUE: Multiple contiguous axial images were obtained through the brain without the use of intravenous contrast. Auto Exposure Controls were utilized during the CT exam to meet ALARA standards for radiation dose reduction. INDICATION: Migraine. Headache. COMPARISON: CT head without contrast 09/01/2015. FINDINGS: No intracranial hemorrhage, mass effect, hydrocephalus or extra-axial fluid collections. No CT evidence of a territorial infarction. Osseous structures are intact. The visualized paranasal sinuses and mastoids are clear. IMPRESSION: No acute intracranial CT findings. Dictated by: Dictated on workstation # [id number]
[2019-11-23] MEDS ORDERED: CEFD300C3 PO ×2 (15:50→15:54)
[2019-11-23 16:07] VITALS: BP 152/76
== END 2019-11-23 16:08 | disposition home or self-care (01) ==
LOC: EDUNIT# 13:09 → ER 13:10
DX: H66.91 Otitis media, unspecified, right ear (principal); R51 Headache; E03.9 Hypothyroidism, unspecified; K21.9 Gastro-esophageal reflux disease without esophagitis; G89.29 Other chronic pain; M54.9 Dorsalgia, unspecified; N39.0 Urinary tract infection, site not specified; I10 Essential (primary) hypertension; Z79.890 Hormone replacement therapy; Z87.891 Personal history of nicotine dependence; Z82.49 Family history of ischemic heart disease and other diseases of the circulatory system; Z88.0 Allergy status to penicillin; Z88.2 Allergy status to sulfonamides; Z88.8 Allergy status to other drugs, medicaments and biological substances; Z79.82 Long term (current) use of aspirin; Z79.891 Long term (current) use of opiate analgesic
CPT/HCPCS: 36415; 70450; 85652

== ENCOUNTER 2020-06-05 08:16 | Emergency (ER) | payer MEDICARE ==
[~2020-06-05] VITALS: Ht 165 cm; Wt 117.0 kg
[2020-06-05 08:17] VITALS: BP 185/84
--- NOTE | 2020-06-05 08:28 | ED Lower Extremity ---
General Chief Complaint: Lower Extremity Stated Complaint: L LEG SPOT History of Present Illness Date Seen by Provider: Jun 05, 2020 Time Seen by Provider: 08:28 Initial Comments 70-year-old female presents with left leg pain. The pain is just medial to her anterior flores. She reports has been there for 3 weeks. Has not seen her primary care provider. Patient wants to be evaluated for a blood clot. She reports occasional posterior calf pain and occasional medial upper thigh pain. She does not recall any injury. She has no other systemic complaints Allergies and Home Medications Allergies Coded Allergies: prednisone (Verified Allergy, Intermediate, FLUSHED/REDNESS, 08/02/18) Penicillins (Verified Allergy, Mild, HIVES, 08/02/18) Sulfa (Sulfonamide Antibiotics) (Verified Allergy, Mild, RASH, 08/02/18) Home Medications Aspirin 81 Mg Tablet.dr, 81 MG PO DAILY, (Reported) Diltiazem HCl 180 Mg Cap.er.24h, 360 MG PO DAILY, (Reported) Levothyroxine Sodium 125 Mcg Tablet, 125 MCG PO DAILY, (Reported) Patient Home Medication List Home Medication List Reviewed: Yes Review of Systems Constitutional: no symptoms reported EENTM: no symptoms reported Respiratory: no symptoms reported Cardiovascular: no symptoms reported Gastrointestinal: no symptoms reported Genitourinary: no symptoms reported Musculoskeletal: see HPI Skin: no symptoms reported Psychiatric/Neurological: No Symptoms Reported Past Aepremh-Zhduhh-Pemioc Hx Past Med/Social Hx: Reviewed Nursing Past Med/Soc Hx Patient Social History Former Smoker, Quit: August 03, 1983 2nd Hand Smoke Exposure: No Recent Hopitalizations: No Immunizations Up To Date Tetanus Booster (TDap): Less than 5yrs Seasonal Allergies Seasonal Allergies: No Past Medical History Surgeries: Yes (KNEE SCOPE, D&C AND HYSTEROSCOPY) Abdominal, Section, Ear Surgery, Gallbladder, Orthopedic, Thyroidectomy, Tubal Ligation Respiratory: No (possible sleep apnea) Cardiac: Yes Atrial Fibrillation, Hypertension Neurological: No 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 Sexually Transmitted Disease: No HIV/AIDS: No Genitourinary: No UTI-Chronic Gastrointestinal: Yes Gastroesophageal Reflux, Diverticulosis, Chronic Diarrhea Musculoskeletal: Yes (BONE SPURS, CHRONIC KNEE PAIN/ARTHRITIS) Arthritis, Chronic Back Pain Endocrine: Yes (PARTIAL THYROIDECTOMY FOR GOITER) Hypothyroidsim HEENT: Yes (GLASSES) Chronic Ear Infection Loss of Vision: Bilateral Hearing Impairment: Deaf Cancer: No Psychosocial: No Integumentary: No Blood Disorders: No Adverse Reaction/Blood Tranf: No (N/A) Family Medical History Arthritis 19 MOTHER Cardiovascular disease 19 MOTHER Completed stroke 19 FATHER 19 MOTHER Diabetes mellitus 19 MOTHER G8 BROTHER Fibrocystic disease of breast G8 SISTER Respiratory disorder G8 BROTHER (Sleep Apnea) Physical Exam Vital Signs Vital Signs - First Documented 06/05/20 08:17 Temp 36.3 Pulse 78 Resp 16 B/P (MAP) 185/84 (117) Pulse Ox 97 O2 Delivery Room Air Capillary Refill : Height, Weight, BMI Height: 5'4.00" Weight: 265lbs. 2.0oz. 120.005380ho; 40.00 BMI Method:Stated General Appearance: WD/WN, no apparent distress Neck: full range of motion Cardiovascular: normal peripheral pulses, regular rate, rhythm Respiratory: lungs clear, normal breath sounds Gastrointestinal: non tender, soft Hips: bilateral hip non-tender Legs: left leg soft tissue tenderness (Just medial to the anterior flores and, no posterior popliteal, medial thigh or any other palpable pain at this time. There is a tight band in that area consistent with a muscle strain.) Knees: bilateral knee non-tender Ankles: bilateral ankle non-tender Feet: bilateral foot non-tender Neurologic/Tendon: normal tendon functions Neurologic/Psychiatric: alert, normal mood/affect, oriented x 3 Skin: normal color, warm/dry Progress/Results/Core Measures Results/Orders Lab Results Laboratory Tests Test 06/05/20 08:54 Range/Units D-Dimer <= 0.27 0.00-0.49 UG/ML My Orders Orders - YARITZA SINGH DO Fibrin Degradation Products (06/05/20 08:31) Vital Signs/I&O 06/05/20 08:17 Temp 36.3 Pulse 78 Resp 16 B/P (MAP) 185/84 (117) Pulse Ox 97 O2 Delivery Room Air Progress Progress Note : Time: 09:25 Progress Note Patient with negative D-dimer, this in addition with the exam being much more consistent with a muscle strain very unlikely that she has a DVT. Recommend she use 4% topical lidocaine and follow-up with her primary care provider as needed. Departure Impression Primary Impression: Muscle strain Disposition: 01 HOME, SELF-CARE Condition: Stable Departure-Patient Inst. Referrals: SELF,MATTHIEU MD (PCP/Family) Primary Care Physician Patient Instructions: Muscle Strain (DC), Muscle and Bone Pain (DC) Add. Discharge Instructions: 4% topical lidocaine with menthol to affected area as directed on package All discharge instructions reviewed with patient and/or family. Voiced understanding. YARITZA SINGH DO Jun 05, 2020 08:28
== END 2020-06-05 09:28 | disposition home or self-care (01) ==
LOC: EDUNIT# 08:16 → ER 08:18
DX: S86.912A Strain of unspecified muscle(s) and tendon(s) at lower leg level, left leg, initial encounter (principal); I10 Essential (primary) hypertension; I48.91 Unspecified atrial fibrillation; E89.0 Postprocedural hypothyroidism; Z87.891 Personal history of nicotine dependence; Z79.890 Hormone replacement therapy; Z79.82 Long term (current) use of aspirin; Z88.0 Allergy status to penicillin; Z88.2 Allergy status to sulfonamides; Z88.8 Allergy status to other drugs, medicaments and biological substances; X58.XXXA Exposure to other specified factors, initial encounter
CPT/HCPCS: 36415; 85379; 99282

== ENCOUNTER → 2020-06-05 | Outpatient (CLI) | payer MEDICARE ==
[~2020-06-05] MED LIST changes: -OXYC-471 PO; +OXYC1TAB11 PO
[2020-06-05 10:46] LABS: BASOPHILS % (AUTO) 0 % (0-10); EOSINOPHILS # (AUTO) 0.1 10^3/uL (0.0-0.3); EOSINOPHILS % (AUTO) 2 % (0-10); HEMATOCRIT 42 % (35-52); HEMOGLOBIN 14.2 g/dL (11.5-16.0); LYMPHOCYTES # (AUTO) 1.2 10^3/uL (1.0-4.0); LYMPHOCYTES % (AUTO) 26 % (12-44); MEAN CORPUSCULAR HEMOGLOBIN 28 pg (25-34); MEAN CORPUSCULAR HGB CONC 34 g/dL (32-36); MEAN CORPUSCULAR VOLUME 84 fL (80-99); MEAN PLATELET VOLUME 9.4 fL (9.0-12.2); MONOCYTES # (AUTO) 0.4 10^3/uL (0.0-1.0); MONOCYTES % (AUTO) 8 % (0-12); NEUTROPHILS # (AUTO) 3.1 10^3/uL (1.8-7.8); NEUTROPHILS % (AUTO) 64 % (42-75); PLATELET COUNT 223 10^3/uL (130-400); WHITE BLOOD COUNT 4.8 10^3/uL (4.3-11.0)
[2020-06-05 11:18] LABS: ALANINE AMINOTRANSFERASE 22 U/L (0-55); ALKALINE PHOSPHATASE 60 U/L (40-136); BILIRUBIN,TOTAL 1.1 MG/DL (0.1-1.0); BUN/CREATININE RATIO 16; CALCIUM 8.8 MG/DL (8.5-10.1); CARBON DIOXIDE 20 MMOL/L (21-32); CHLORIDE 110 MMOL/L (98-107); CHOLESTEROL 212 MG/DL (< 200); CREATININE SERUM 0.76 MG/DL (0.60-1.30); GFR ESTIMATED > 60; GLUCOSE 103 MG/DL (70-105); HDL CHOLESTEROL 46 MG/DL (40-60); POTASSIUM 3.9 MMOL/L (3.6-5.0); SODIUM 140 MMOL/L (135-145); TOTAL PROTEIN 6.5 GM/DL (6.4-8.2); TRIGLYCERIDES 187 MG/DL (<150); VLDL CHOLESTEROL 37 MG/DL (5-40)
[2020-06-05 11:39] LABS: FREE T4 (FREE THYROXINE) 1.18 NG/DL (0.70-1.48)
== END ==
LOC: LAB 10:16
PROVIDERS: ATTEND Family Medicine
DX: E78.2 Mixed hyperlipidemia (principal); E03.9 Hypothyroidism, unspecified; E55.9 Vitamin D deficiency, unspecified; E88.81 Metabolic syndrome and other insulin resistance; R73.9 Hyperglycemia, unspecified; R53.83 Other fatigue
CPT/HCPCS: 80053; 80061; 82306; 83036; 84439; 84443; 85025

== ENCOUNTER 2020-06-07 01:35 | Emergency (ER) | payer MEDICARE ==
[~2020-06-07] VITALS: Ht 165 cm; Wt 117.0 kg
--- NOTE | 2020-06-07 03:02 | ED Cardiac General ---
History of Present Illness General Chief Complaint: Cardiac/General Problems Stated Complaint: IRREGULAR HEART RATE Nursing Triage Note: REPORTS IRREGULAR HR X1HR. DENIES SOA/PAIN. Source: patient Exam Limitations: no limitations (DAKSHA COFFEY MED STUDENT) History of Present Illness Date Seen by Provider: Jun 07, 2020 Time Seen by Provider: 01:41 Initial Comments Patient presents to the ED from home with complaints of irregular hear beat that began 1 hour prior to arrival. She describes her heart rate as "stuttering". She denies chest pain, shortness of air. Past cardiac history is remarkable for atrial fibrillation in 2016 that was converted via medication after a 1 day hospital stay. She is currently on diltiazem and baby ASA. Pt states she had outpatient lab work done on Monday including thyroid lab work. She denies recent medication changes. Previous cardiac workup included an Echo with an EF of 60% in 2015 and stress test in 2019 with EF 72% and no evidence or myocardiac ischemia or infarct. She follows Dr. Rivera for cardiology. Her PCP is Dr. King. Timing/Duration: 1 hour Associated Systoms: Denies Symptoms (DAKSHA COFFEY MED STUDENT) Allergies and Home Medications Allergies Coded Allergies: prednisone (Verified Allergy, Intermediate, FLUSHED/REDNESS, 08/02/18) Penicillins (Verified Allergy, Mild, HIVES, 08/02/18) Sulfa (Sulfonamide Antibiotics) (Verified Allergy, Mild, RASH, 08/02/18) Home Medications Aspirin 81 Mg Tablet.dr, 81 MG PO DAILY, (Reported) Diltiazem HCl 180 Mg Cap.er.24h, 360 MG PO DAILY, (Reported) Levothyroxine Sodium 125 Mcg Tablet, 125 MCG PO DAILY, (Reported) Patient Home Medication List Home Medication List Reviewed: Yes (DAKSHA COFFEY MED STUDENT) Review of Systems Review of Systems Constitutional: No chills, No diaphoresis, No fever EENTM: No Symptoms Reported Respiratory: Denies Cough, Denies Shortness of Air Cardiovascular: Denies Chest Pain; Irregular Heart Rate; Denies Lightheadedness, Denies Syncope Gastrointestinal: No Symptoms Reported Genitourinary: No Symptoms Reported Musculoskeletal: no symptoms reported (DAKSHA COFFEY MED STUDENT) Skin: no symptoms reported Psychiatric/Neurological: No Symptoms Reported (CHRIS BLACKWELL MD) Past Tqhgdbq-Vqogoy-Zvsbke Hx Patient Social History Alcohol Use: Denies Use Smoking Status: Former Smoker Former Smoker, Quit: August 03, 1983 2nd Hand Smoke Exposure: No Recent Infectious Disease Expo: No Recent Hopitalizations: No (DAKSHA COFFEYIAT-Auto CARRILLO) Immunizations Up To Date Tetanus Booster (TDap): Less than 5yrs (DAKSHA COFFEY MED STUDENT) Seasonal Allergies Seasonal Allergies: No (DAKSHA COFFEYIAT-Auto CARRILLO) Past Medical History Surgeries: Yes (KNEE SCOPE, D&C AND HYSTEROSCOPY) Abdominal, Section, Ear Surgery, Gallbladder, Orthopedic, Thyroidectomy, Tubal Ligation Respiratory: No Cardiac: Yes Atrial Fibrillation, Hypertension Neurological: No : No 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 Disorders: 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, 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 Sexually Transmitted Disease: No HIV/AIDS: No Genitourinary: No UTI-Chronic Gastrointestinal: Yes Gastroesophageal Reflux, Diverticulosis, Chronic Diarrhea Musculoskeletal: Yes (BONE SPURS, CHRONIC KNEE PAIN/ARTHRITIS) Arthritis, Chronic Back Pain Endocrine: Yes (PARTIAL THYROIDECTOMY FOR GOITER) Hypothyroidsim HEENT: Yes (GLASSES) Chronic Ear Infection Loss of Vision: Bilateral Hearing Impairment: Deaf Cancer: No Psychosocial: No Integumentary: No Blood Disorders: No Adverse Reaction/Blood Tranf: No (N/A) (DAKSHA COFFEY MED STUDENT) Family Medical History Arthritis 19 MOTHER Cardiovascular disease 19 MOTHER Completed stroke 19 FATHER 19 MOTHER Diabetes mellitus 19 MOTHER G8 BROTHER Fibrocystic disease of breast G8 SISTER Respiratory disorder G8 BROTHER (Sleep Apnea) Physical Exam Vital Signs Vital Signs - First Documented 06/07/20 01:40 Temp 36.7 Pulse 87 Resp 18 B/P (MAP) 164/77 (106) Pulse Ox 96 O2 Delivery Room Air (CHRIS BLACKWELL MD) Vital Signs Capillary Refill : Less Than 3 Seconds (DAKSHA COFFEY MED STUDENT) Height, Weight, BMI Height: 5'4.00" Weight: 265lbs. 2.0oz. [id number]; 42.00 BMI Method:Stated General Appearance: No Apparent Distress, WD/WN Neck: Non Tender, Supple Respiratory: Chest Non Tender, Lungs Clear, Normal Breath Sounds, No Accessory Muscle Use, No Respiratory Distress Cardiovascular: Regular Rate, Rhythm, No Murmur Gastrointestinal: Non Tender, Soft; No Distended, No Guarding Extremity: Normal Capillary Refill, No Calf Tenderness, No Pedal Edema Neurologic/Psychiatric: Alert, Oriented x3, Normal Mood/Affect Skin: Normal Color, Warm/Dry (DAKSHA COFFEY,MED STUDENT) Progress/Results/Core Measures Results/Orders Lab Results Laboratory Tests Test 06/07/20 03:15 Range/Units White Blood Count 5.8 4.3-11.0 10^3/uL Red Blood Count 4.87 3.80-5.11 10^6/uL Hemoglobin 14.0 11.5-16.0 g/dL Hematocrit 41 35-52 % Mean Corpuscular Volume 83 80-99 fL Mean Corpuscular Hemoglobin 29 25-34 pg Mean Corpuscular Hemoglobin Concent 35 32-36 g/dL Red Cell Distribution Width 12.7 10.0-14.5 % Platelet Count 218 130-400 10^3/uL Mean Platelet Volume 9.1 9.0-12.2 fL Immature Granulocyte % (Auto) 0 % Neutrophils (%) (Auto) 66 42-75 % Lymphocytes (%) (Auto) 24 12-44 % Monocytes (%) (Auto) 8 0-12 % Eosinophils (%) (Auto) 2 0-10 % Basophils (%) (Auto) 0 0-10 % Neutrophils # (Auto) 3.8 1.8-7.8 10^3/uL Lymphocytes # (Auto) 1.4 1.0-4.0 10^3/uL Monocytes # (Auto) 0.5 0.0-1.0 10^3/uL Eosinophils # (Auto) 0.1 0.0-0.3 10^3/uL Basophils # (Auto) 0.0 0.0-0.1 10^3/uL Immature Granulocyte # (Auto) 0.0 0.0-0.1 10^3/uL Prothrombin Time 13.3 12.2-14.7 SEC INR Comment 1.0 0.8-1.4 Activated Partial Thromboplast Time 26 24-35 SEC Sodium Level 139 135-145 MMOL/L Potassium Level 3.7 3.6-5.0 MMOL/L Chloride Level 108 H 98-107 MMOL/L Carbon Dioxide Level 19 L 21-32 MMOL/L Anion Gap 12 5-14 MMOL/L Blood Urea Nitrogen 17 7-18 MG/DL Creatinine 0.76 0.60-1.30 MG/DL Estimat Glomerular Filtration Rate > 60 BUN/Creatinine Ratio 22 Glucose Level 125 H 70-105 MG/DL Calcium Level 9.2 8.5-10.1 MG/DL Corrected Calcium 9.3 8.5-10.1 MG/DL Magnesium Level 1.8 1.6-2.4 MG/DL Total Bilirubin 0.7 0.1-1.0 MG/DL Aspartate Amino Transf (AST/SGOT) 14 5-34 U/L Alanine Aminotransferase (ALT/SGPT) 19 0-55 U/L Alkaline Phosphatase 78 40-136 U/L Myoglobin 25.4 10.0-92.0 NG/ML Troponin I < 0.028 <0.028 NG/ML Total Protein 6.6 6.4-8.2 GM/DL Albumin 3.9 3.2-4.5 GM/DL (CHRIS BLACKWELL MD) My Orders Orders - CHRIS BLACKWELL MD Cbc With Automated Diff (06/07/20 03:10) Magnesium (06/07/20 03:10) Chest 1 View, Ap/Pa Only (06/07/20 03:10) Ekg Tracing (06/07/20 03:10) Comprehensive Metabolic Panel (06/07/20 03:10) Myoglobin Serum (06/07/20 03:10) Protime With Inr (06/07/20 03:10) Partial Thromboplastin Time (06/07/20 03:10) O2 (06/07/20 03:10) Monitor-Rhythm Ecg Trace Only (06/07/20 03:10) Ed Iv/Invasive Line Start (06/07/20 03:10) Troponin I (06/07/20 03:10) (CRHIS BLACKWELL MD) Vital Signs/I&O 06/07/20 06/07/20 01:40 04:33 Temp 36.7 36.7 Pulse 87 61 Resp 18 16 B/P (MAP) 164/77 (106) 144/74 (106) Pulse Ox 96 97 O2 Delivery Room Air Room Air (CHRIS BLACKWELL MD) Blood Pressure Mean: 106 Progress Progress Note : Progress Note Work-up was unremarkable. No significant arrhythmias were noted on the monitor throughout her ER stay. She was having intermittent PVCs and/or PACs. A PAC was noted on her EKG. Patient was advised to follow-up closely with Dr. Rivera. (CHRIS BLACKWELL MD) Initial ECG Impression Date: Jun 07, 2020 Initial ECG Impression Time: 01:44 Initial ECG Rate: 74 Initial ECG Rhythm: Normal Sinus Comment Sinus rhythm with no ST elevation or depression. PAC. Left axis deviation by a utomated read. No abnormal intervals. (CHRIS BLACKWELL MD) Departure Impression Primary Impression: Palpitations Additional Impression: PVCs (premature ventricular contractions) Disposition: HOME, SELF-CARE Condition: Stable Departure-Patient Inst. Decision time for Depature: 04:20 (CHRIS BLACKWELL MD) Referrals: SELFMATTHIEU MD (PCP/Family) Primary Care Physician Patient Instructions: Palpitations Add. Discharge Instructions: Your palpitations may be caused by preventricular contractions. 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 Please follow-up with Dr. Rivera by calling on Monday. Call with questions or concerns. Return to the ER if you have worsening symptoms. All discharge instructions reviewed with patient and/or family. Voiced understanding. Medical Student Attestation and Attending Note: I have personally interviewed and examined this patient along with GREGORIO Hays. I have reviewed student documentation including history, physical, and assessments. I agree with the documentation except where otherwise noted. Exam: General: Alert, oriented, no acute distress, well developed HEENT: Normocephalic and atraumatic Heart: Regular rate and rhythm without murmur Lungs: Clear to auscultation bilaterally with normal effort Abdomen: Soft, nontender, nondistended, normal bowel sounds Neuropsych: Alert, oriented, no focal deficits Skin: Warm and dry without rashes (CHRIS BLACKWELL MD) Copy Copies To 1: TISHA RIVERA MD FACP FACC CCDS DAKSHA COFFEYMED STUDENT Jun 07, 2020 03:02 CHRIS BLACKWELL MD Jun 07, 2020 04:31
[2020-06-07 03:25] LABS: BASOPHILS % (AUTO) 0 % (0-10); EOSINOPHILS # (AUTO) 0.1 10^3/uL (0.0-0.3); EOSINOPHILS % (AUTO) 2 % (0-10); HEMATOCRIT 41 % (35-52); LYMPHOCYTES # (AUTO) 1.4 10^3/uL (1.0-4.0); LYMPHOCYTES % (AUTO) 24 % (12-44); MEAN CORPUSCULAR HEMOGLOBIN 29 pg (25-34); MEAN CORPUSCULAR HGB CONC 35 g/dL (32-36); MEAN CORPUSCULAR VOLUME 83 fL (80-99); MEAN PLATELET VOLUME 9.1 fL (9.0-12.2); MONOCYTES # (AUTO) 0.5 10^3/uL (0.0-1.0); MONOCYTES % (AUTO) 8 % (0-12); NEUTROPHILS # (AUTO) 3.8 10^3/uL (1.8-7.8); NEUTROPHILS % (AUTO) 66 % (42-75); PLATELET COUNT 218 10^3/uL (130-400); WHITE BLOOD COUNT 5.8 10^3/uL (4.3-11.0)
[2020-06-07 03:32] LABS: ALBUMIN 3.9 GM/DL (3.2-4.5); CHLORIDE 108 MMOL/L (98-107); POTASSIUM 3.7 MMOL/L (3.6-5.0); SODIUM 139 MMOL/L (135-145)
[2020-06-07 03:33] LABS: PROTHROMBIN TIME PATIENT 13.3 SEC (12.2-14.7)
[2020-06-07 03:34] LABS: CALCIUM 9.2 MG/DL (8.5-10.1)
[2020-06-07 03:35] LABS: GLUCOSE 125 MG/DL (70-105); TOTAL PROTEIN 6.6 GM/DL (6.4-8.2)
[2020-06-07 03:36] LABS: BILIRUBIN,TOTAL 0.7 MG/DL (0.1-1.0); CARBON DIOXIDE 19 MMOL/L (21-32)
[2020-06-07 03:38] LABS: ALKALINE PHOSPHATASE 78 U/L (40-136)
[2020-06-07 03:39] LABS: CREATININE SERUM 0.76 MG/DL (0.60-1.30); GFR ESTIMATED > 60
[2020-06-07 03:40] LABS: BUN/CREATININE RATIO 22
[2020-06-07 03:42] LABS: MAGNESIUM 1.8 MG/DL (1.6-2.4)
[2020-06-07 03:55] LABS: ALANINE AMINOTRANSFERASE 19 U/L (0-55)
[2020-06-07 04:33] VITALS: BP 144/74
--- NOTE | 2020-06-07 06:12 | Diagnostic Imaging Report ---
INDICATION: Irregular heart rate x1 hour. EXAMINATION: Chest 06/07/2020 COMPARISON: 08/09/2018 FINDINGS: The cardiomediastinal silhouette is unremarkable. The pulmonary vasculature is within normal limits. The lungs and pleural spaces are clear. IMPRESSION: No evidence of an acute cardiopulmonary process. Dictated by: Dictated on workstation # [id number]
== END 2020-06-07 04:35 | disposition home or self-care (01) ==
LOC: EDUNIT# 01:35 → ER 01:38
DX: I49.3 Ventricular premature depolarization (principal); I10 Essential (primary) hypertension; I48.91 Unspecified atrial fibrillation; E89.0 Postprocedural hypothyroidism; Z87.891 Personal history of nicotine dependence; Z88.0 Allergy status to penicillin; Z88.2 Allergy status to sulfonamides; Z88.8 Allergy status to other drugs, medicaments and biological substances; Z79.82 Long term (current) use of aspirin; Z79.890 Hormone replacement therapy; Z79.899 Other long term (current) drug therapy
CPT/HCPCS: 36415; 71045; 80053; 83735; 83874; 84484; 85025; 85610; 85730; 93005; 93041

== ENCOUNTER 2020-08-26 13:34 | Emergency (ER) | payer MEDICARE ==
[~2020-08-26] VITALS: Ht 165.1 cm; Wt 117.9 kg
--- NOTE | 2020-08-26 14:17 | ED Upper Extremity ---
General Chief Complaint: Trauma-Non Activation Stated Complaint: FELL IN YARD Nursing Triage Note: BRUISE TO LEFT NOSE. PAIN TO OURSIDE OF RIGHT HAND. Nursing Sepsis Screen: No Definite Risk Source: spouse Exam Limitations: no limitations History of Present Illness Date Seen by Provider: Aug 26, 2020 Time Seen by Provider: 14:00 Initial Comments This is a well-appearing 70-year-old female who presents to the ER with complaints of right hand pain and nose pain after sustaining a fall in her yard around 1130 this morning. States that she tripped over a root and fell face forward onto the grass. Currently reports minimal pain in her right hand. Additionally reports some nausea after incident. No vomiting. Denies headache, dizziness, LOC, neck pain, changes in vision, loss of balance. She does take 3 baby aspirin at bedtime. No other anticoagulants. Location Injury Occurred: IN YARD AT HOME Allergies and Home Medications Allergies Coded Allergies: prednisone (Verified Allergy, Intermediate, FLUSHED/REDNESS, 08/02/18) Penicillins (Verified Allergy, Mild, HIVES, 08/02/18) Sulfa (Sulfonamide Antibiotics) (Verified Allergy, Mild, RASH, 08/02/18) Home Medications Aspirin 81 Mg Tablet.dr, 81 MG PO DAILY, (Reported) Diltiazem HCl 180 Mg Cap.er.24h, 360 MG PO DAILY, (Reported) Levothyroxine Sodium 125 Mcg Tablet, 125 MCG PO DAILY, (Reported) Patient Home Medication List Home Medication List Reviewed: Yes Review of Systems Constitutional: no symptoms reported EENTM: see HPI Respiratory: no symptoms reported Cardiovascular: no symptoms reported Gastrointestinal: see HPI Genitourinary: no symptoms reported Musculoskeletal: see HPI Skin: see HPI Psychiatric/Neurological: No Symptoms Reported Past Hlbexif-Oxrgly-Wvfnrs Hx Patient Social History Alcohol Use: Denies Use Smoking Status: Former Smoker Former Smoker, Quit: August 03, 1983 2nd Hand Smoke Exposure: No Recent Infectious Disease Expo: No Recent Hopitalizations: No Immunizations Up To Date Tetanus Booster (TDap): Less than 5yrs Seasonal Allergies Seasonal Allergies: No Past Medical History Surgeries: Yes (KNEE SCOPE, D&C AND HYSTEROSCOPY) Abdominal, Section, Ear Surgery, Gallbladder, Orthopedic, Thyroidectomy, Tubal Ligation Respiratory: No Cardiac: Yes Atrial Fibrillation, Hypertension Neurological: No 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, 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 Sexually Transmitted Disease: No HIV/AIDS: No Genitourinary: No UTI-Chronic Gastrointestinal: Yes Gastroesophageal Reflux, Diverticulosis, Chronic Diarrhea Musculoskeletal: Yes (BONE SPURS, CHRONIC KNEE PAIN/ARTHRITIS) Arthritis, Chronic Back Pain Endocrine: Yes (PARTIAL THYROIDECTOMY FOR GOITER) Hypothyroidsim HEENT: Yes (GLASSES) Chronic Ear Infection Loss of Vision: Bilateral Hearing Impairment: Deaf Cancer: No Psychosocial: No Integumentary: No Blood Disorders: No Adverse Reaction/Blood Tranf: No (N/A) Family Medical History Arthritis 19 MOTHER Cardiovascular disease 19 MOTHER Completed stroke 19 FATHER 19 MOTHER Diabetes mellitus 19 MOTHER G8 BROTHER Fibrocystic disease of breast G8 SISTER Respiratory disorder G8 BROTHER (Sleep Apnea) Physical Exam Vital Signs Vital Signs - First Documented 08/26/20 08/26/20 13:57 15:11 Temp 37.1 Pulse 69 Resp 17 B/P (MAP) 157/71 (99) Pulse Ox 96 O2 Delivery Room Air Capillary Refill : Less Than 3 Seconds Height, Weight, BMI Height: 5'4.00" Weight: 265lbs. 2.0oz. 120.572161ed; 43.00 BMI Method:Stated General Appearance: WD/WN, no apparent distress HEENT: PERRL/EOMI, TMs normal, pharynx normal, other (bruising left side of nose near left punctum lacrimale) Neck: full range of motion, supple, normal inspection Cardiovascular: normal peripheral pulses, regular rate, rhythm, no murmur Respiratory: chest non-tender, lungs clear, normal breath sounds, no respiratory distress, no accessory muscle use Gastrointestinal: normal bowel sounds, non tender, soft Back: normal inspection, no vertebral tenderness Shoulder: normal inspection, non-tender, no evidence of injury, normal ROM Elbow/Forearm: normal inspection, non-tender, no evidence of injury, normal ROM Wrist: Yes normal inspection, Yes non-tender, Yes no evidence of injury, Yes normal ROM Hand: normal inspection, no evidence of injury, Right, bone tenderness (5th metacarpal ) Neurologic/Psychiatric: no motor/sensory deficits, alert, normal mood/affect, oriented x 3 Skin: normal color, warm/dry Progress/Results/Core Measures Results/Orders My Orders Orders - ODALIS GONZALEZ APRN Hand, Right, 3 Views (08/26/20 14:14) Vital Signs/I&O 08/26/20 08/26/20 13:57 15:11 Temp 37.1 Pulse 69 61 Resp 17 16 B/P (MAP) 157/71 (99) 157/82 Pulse Ox 96 O2 Delivery Room Air Room Air Blood Pressure Mean: 99 Diagnostic Imaging Diagonstic Imaging: Xray Plain Films/CT/US/NM/MRI: hand Comments [facility] [place] [place] NAME: [facility] REC#: [id number] PT STATUS: DEP ER : 1950 PHYSICIAN: ODALIS GONZALEZ THERMAL CUTTER HAND ADMIT DATE: 08/26/20/ER Signed Date of Exam:08/26/20 HAND, RIGHT, 3 VIEWS Indication: Injury, pain. Findings: No retained opaque foreign body. No fracture or dislocation. In particular, the 4th ray, where symptoms were reportedly greatest, had an unremarkable appearance. There are arthritic changes to the proximal and distal interphalangeal joints without erosive component. There are mild degenerative changes to the carpus. Impression: No fracture or foreign body identified. Dictated by: Dictated on workstation # [id number] Dict: 08/26/20 1508 Trans: 08/26/20 175 [facility] [id number] Interpreted by: PIERCE LARA Electronically signed by: PIERCE LARA 08/26/201756 Reviewed: Reviewed by Me Departure Impression Primary Impression: Fall on same level Disposition: 01 HOME, SELF-CARE Condition: Improved Departure-Patient Inst. Decision time for Depature: 14:54 Referrals: MATTHIEU HORNER MD (PCP/Family) Primary Care Physician Patient Instructions: Minor Head Injury (DC) Add. Discharge Instructions: Plan: 1. May use ice 20 minutes at a time 4-6x per day as needed for pain/swelling of right hand. 2. May take Tylenol as needed for pain. 3. Monitor for the following warning signs and return to ER if you develop any of these symptoms: -Change in pupil (black part of eye) size. -Severe persistent headache. -Vomiting more than 2 times in 12 hours. -Changes in balance or vision. -Difficulty waking or excessive drowsiness. 4. Return to ER for any new, concerning, or worsening symptoms. All discharge instructions reviewed with patient and/or family. Voiced understanding. ODALIS GONZALEZ THERMAL CUTTER HAND Aug 26, 2020 14:17
[2020-08-26 15:11] VITALS: BP 157/82
--- NOTE | 2020-08-26 15:16 | Diagnostic Imaging Report ---
Indication: Injury, pain. Findings: No retained opaque foreign body. No fracture or dislocation. In particular, the 4th ray, where symptoms were reportedly greatest, had an unremarkable appearance. There are arthritic changes to the proximal and distal interphalangeal joints without erosive component. There are mild degenerative changes to the carpus. Impression: No fracture or foreign body identified. Dictated by: Dictated on workstation # [id number]
== END 2020-08-26 15:10 | disposition home or self-care (01) ==
LOC: EDUNIT# 13:34 → ER 13:36
DX: S00.33XA Contusion of nose, initial encounter (principal); I10 Essential (primary) hypertension; E03.9 Hypothyroidism, unspecified; Z79.890 Hormone replacement therapy; Z88.0 Allergy status to penicillin; Z88.2 Allergy status to sulfonamides; Z88.8 Allergy status to other drugs, medicaments and biological substances; Z87.891 Personal history of nicotine dependence; Z79.899 Other long term (current) drug therapy; Z79.82 Long term (current) use of aspirin; W01.0XXA Fall on same level from slipping, tripping and stumbling without subsequent striking against object, initial encounter; Y92.007 Garden or yard of unspecified non-institutional (private) residence as the place of occurrence of the external cause
CPT/HCPCS: 73130

== ENCOUNTER 2021-04-08 14:03 | Emergency (ER) | payer MEDICARE ==
[~2021-04-08] VITALS: Ht 165.1 cm; Wt 118.8 kg
[2021-04-08] MEDS ORDERED: ASPIRIN 81 MG CHEW (CHILDREN'S ASA) PO ONE (14:30)
--- NOTE | 2021-04-08 14:30 | ED Cardiac General ---
History of Present Illness General Chief Complaint: Cardiac/General Problems Stated Complaint: AFIB Source: patient Exam Limitations: no limitations History of Present Illness Date Seen by Provider: Apr 08, 2021 Time Seen by Provider: 14:28 Initial Comments ER by private vehicle with reports of palpitations onset this morning. She has known atrial fibrillation follows with Dr. Rivera. She is on Cartia 360 mg daily and she has had that this morning and has not missed any doses. She states that normally she is in a normal sinus rhythm but occasionally she has atrial fibrillation. She had some sweating this morning but no nausea no vomiting no chest pain no shortness of breath. She only complains of the bothersome palpitations. No recent illness and she was fine when she went to bed last night. Timing/Duration: changing over time Severity: moderate Prior CP/Workup: no prior chest pain NTG SL WEATHER FORCASTER: No ASA po WEATHER FORCASTER: No Allergies and Home Medications Allergies Coded Allergies: prednisone (Verified Allergy, Intermediate, FLUSHED/REDNESS, 08/02/18) Penicillins (Verified Allergy, Mild, HIVES, 08/02/18) Sulfa (Sulfonamide Antibiotics) (Verified Allergy, Mild, RASH, 08/02/18) Patient Home Medication List Home Medication List Reviewed: Yes Aspirin (Aspir 81) 81 Mg Tablet.dr, 81 MG PO DAILY, (Reported) Entered as Reported by: JULIET RANGEL on 08/02/18 1144 Diltiazem HCl (Cartia Xt) 180 Mg Cap.er.24h, 360 MG PO DAILY, (Reported) Entered as Reported by: CLEMENT MORALES on 07/29/16 1043 Levothyroxine Sodium (Levothyroxine Sodium) 125 Mcg Tablet, 125 MCG PO DAILY, (Reported) Entered as Reported by: CLEMENT MORALES on 07/29/16 1043 Metoprolol Succinate (Toprol Xl) 50 Mg Tab.er.24h, 50 MG PO DAILY Prescribed by: TENA LANDA on 04/08/21 1604 Last Action: New Order Review of Systems Review of Systems Constitutional: see HPI EENTM: No Symptoms Reported Respiratory: No Symptoms Reported Cardiovascular: See HPI; Denies Chest Pain; Irregular Heart Rate, Palpitations Gastrointestinal: No Symptoms Reported Genitourinary: No Symptoms Reported Musculoskeletal: no symptoms reported Skin: no symptoms reported Psychiatric/Neurological: No Symptoms Reported Endocrine: No Symptoms Reported Past Xkoenih-Qykajh-Glentt Hx Immunizations Up To Date Tetanus Booster (TDap): Less than 5yrs Seasonal Allergies Seasonal Allergies: No Past Medical History Surgeries: Yes (KNEE SCOPE, D&C AND HYSTEROSCOPY) Abdominal, Section, Ear Surgery, Gallbladder, Orthopedic, Thyroidectomy, Tubal Ligation Respiratory: No Cardiac: Yes Atrial Fibrillation, Hypertension Neurological: No 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, 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 Sexually Transmitted Disease: No HIV/AIDS: No Genitourinary: No UTI-Chronic Gastrointestinal: Yes Gastroesophageal Reflux, Diverticulosis, Chronic Diarrhea Musculoskeletal: Yes (BONE SPURS, CHRONIC KNEE PAIN/ARTHRITIS) Arthritis, Chronic Back Pain Endocrine: Yes (PARTIAL THYROIDECTOMY FOR GOITER) Hypothyroidsim HEENT: Yes (GLASSES) Chronic Ear Infection Loss of Vision: Bilateral Hearing Impairment: Deaf Cancer: No Psychosocial: No Integumentary: No Blood Disorders: No Adverse Reaction/Blood Tranf: No (N/A) Family Medical History Arthritis 19 MOTHER Cardiovascular disease 19 MOTHER Completed stroke 19 FATHER 19 MOTHER Diabetes mellitus 19 MOTHER G8 BROTHER Fibrocystic disease of breast G8 SISTER Respiratory disorder G8 BROTHER (Sleep Apnea) Physical Exam Vital Signs Vital Signs - First Documented 04/08/21 14:26 Temp 35.9 Pulse 101 Resp 14 B/P (MAP) 109/72 (84) Pulse Ox 96 O2 Delivery Room Air Capillary Refill : Height, Weight, BMI Height: 5'4.00" Weight: 265lbs. 2.0oz. 120.993234rt; 43.00 BMI Method:Stated General Appearance: No Apparent Distress, WD/WN Neck: Full Range of Motion, Normal Inspection Respiratory: Normal Breath Sounds, No Accessory Muscle Use, No Respiratory Distress Cardiovascular: Irregularly Irregular, Tachycardia (Rate of 85-120 atrial fibrillation) Gastrointestinal: Normal Bowel Sounds, Non Tender, Soft Extremity: Normal Capillary Refill, Normal Inspection Neurologic/Psychiatric: Alert, Oriented x3 Skin: Normal Color, Warm/Dry Progress/Results/Core Measures Results/Orders Lab Results Laboratory Tests Test 04/08/21 14:30 Range/Units White Blood Count 6.0 4.3-11.0 10^3/uL Red Blood Count 5.47 H 3.80-5.11 10^6/uL Hemoglobin 15.4 11.5-16.0 g/dL Hematocrit 46 35-52 % Mean Corpuscular Volume 84 80-99 fL Mean Corpuscular Hemoglobin 28 25-34 pg Mean Corpuscular Hemoglobin Concent 34 32-36 g/dL Red Cell Distribution Width 12.6 10.0-14.5 % Platelet Count 249 130-400 10^3/uL Mean Platelet Volume 9.0 9.0-12.2 fL Immature Granulocyte % (Auto) 1 % Neutrophils (%) (Auto) 55 42-75 % Lymphocytes (%) (Auto) 32 12-44 % Monocytes (%) (Auto) 10 0-12 % Eosinophils (%) (Auto) 2 0-10 % Basophils (%) (Auto) 1 0-10 % Neutrophils # (Auto) 3.3 1.8-7.8 10^3/uL Lymphocytes # (Auto) 1.9 1.0-4.0 10^3/uL Monocytes # (Auto) 0.6 0.0-1.0 10^3/uL Eosinophils # (Auto) 0.1 0.0-0.3 10^3/uL Basophils # (Auto) 0.0 0.0-0.1 10^3/uL Immature Granulocyte # (Auto) 0.0 0.0-0.1 10^3/uL Prothrombin Time 13.4 12.2-14.7 SEC INR Comment 1.0 0.8-1.4 Activated Partial Thromboplast Time 26 24-35 SEC Sodium Level 142 135-145 MMOL/L Potassium Level 3.9 3.6-5.0 MMOL/L Chloride Level 108 H 98-107 MMOL/L Carbon Dioxide Level 20 L 21-32 MMOL/L Anion Gap 14 5-14 MMOL/L Blood Urea Nitrogen 15 7-18 MG/DL Creatinine 0.93 0.60-1.30 MG/DL Estimat Glomerular Filtration Rate 66 BUN/Creatinine Ratio 16 Glucose Level 131 H 70-105 MG/DL Calcium Level 9.3 8.5-10.1 MG/DL Corrected Calcium 9.1 8.5-10.1 MG/DL Magnesium Level 1.9 1.6-2.4 MG/DL Total Bilirubin 0.6 0.1-1.0 MG/DL Aspartate Amino Transf (AST/SGOT) 11 5-34 U/L Alanine Aminotransferase (ALT/SGPT) 17 0-55 U/L Alkaline Phosphatase 71 40-136 U/L Myoglobin 35.7 10.0-92.0 NG/ML Troponin I < 0.028 <0.028 NG/ML B-Type Natriuretic Peptide 220.2 H <100.0 PG/ML Total Protein 7.0 6.4-8.2 GM/DL Albumin 4.2 3.2-4.5 GM/DL Thyroid Stimulating Hormone (TSH) 1.04 0.35-4.94 UIU/ML Free Thyroxine 1.16 0.70-1.48 NG/DL My Orders Orders - TENA LANDA APRN Cbc With Automated Diff (04/08/21 14:28) Magnesium (04/08/21 14:28) Chest 1 View, Ap/Pa Only (04/08/21 14:28) Ekg Tracing (04/08/21 14:28) Comprehensive Metabolic Panel (04/08/21 14:28) Myoglobin Serum (04/08/21 14:28) Protime With Inr (04/08/21 14:28) Partial Thromboplastin Time (04/08/21 14:28) O2 (04/08/21 14:28) Monitor-Rhythm Ecg Trace Only (04/08/21 14:28) Lipid Panel (04/09/21 06:00) Ed Iv/Invasive Line Start (04/08/21 14:28) Bnp Marisa (04/08/21 14:28) Troponin I Marisa (04/08/21 14:28) Aspirin Chewable Tablet (Baby Aspirin Ch (04/08/21 14:30) Diltiazem Injection (Cardizem Injection) (04/08/21 14:45) Ns Iv 500 Ml (Sodium Chloride 0.9%) (04/08/21 14:35) Thyroid Stimulating Hormone (04/08/21 15:17) Free T4 (Free Thyroxine) (04/08/21 15:17) Metoprolol Tartrate Injection (Lopressor (04/08/21 15:30) Metoprolol Succinate (Xl) Tab (Toprol Xl (04/08/21 16:15) Metoprolol Succinate (Xl) Tab (Toprol Xl (04/08/21 16:15) Medications Given in ED Current Medications Medications Dose Ordered Sig/Tatyana Route Start Time Stop Time Status Last Admin Dose Admin Aspirin 324 mg ONCE ONCE PO 04/08/21 14:30 04/08/21 14:31 DC 04/08/21 14:40 324 MG Diltiazem HCl 10 mg ONCE ONCE IVP 04/08/21 14:45 04/08/21 14:46 DC 04/08/21 14:40 10 MG Metoprolol Tartrate 2.5 mg ONCE ONCE IV 04/08/21 15:30 04/08/21 15:31 DC 04/08/21 15:28 2.5 MG Sodium Chloride 500 ml @ 0 mls/hr Q0M ONCE IV 04/08/21 14:35 04/08/21 14:36 DC 04/08/21 14:40 500 MLS/HR Vital Signs/I&O 04/08/21 14:26 Temp 35.9 Pulse 101 Resp 14 B/P (MAP) 109/72 (84) Pulse Ox 96 O2 Delivery Room Air Departure Communication (Admissions) 1605-heart rate is 70-1 05 varying between sinus rhythm and atrial fibrillation. The A. fib lasts 5-10 beats at a time and is somewhat fast probably in the 1 30- 1 40 range. However it only lasts for 5-10 beats before going back into sinus. She has a blood pressure of 141/73. I given her 10 mg of Cardizem IV push here as well as 2.5 mg of Lopressor. She seems a bit slower now than she was on the heart rate. Spoke with Dr. Contreras he like to start her on a Toprol-XL 50 mg tablet now and daily and he will follow-up with her tomorrow or Monday. He did ask about her anticoagulation status. The patient is not anticoagulated. She states that she takes 3 baby aspirin a day since found out about A. fib in 2016 because she is scared of the bleeding risk associated with Eliquis and Xarelto. I did discuss with her the stroke risk associated with A. fib but she would still like to stick with her aspirin only regimen. NAME: ABBY WAYNE MED REC#: [id number] PT STATUS: REG ER : 1950 PHYSICIAN: TENA LANDA APRN ADMIT DATE: 04/08/21/ER Draft Date of Exam:04/08/21 CHEST 1 VIEW, AP/PA ONLY INDICATION: Chest pain. COMPARISON: Comparison made with prior examination from 06/07/2020. FINDINGS: The heart size, mediastinal configuration, and pulmonary vascularity are within normal limits. There is no pleural effusion, pneumothorax, or pneumonia. The osseous structures are unremarkable. IMPRESSION: No acute cardiopulmonary abnormality. Dictated on workstation # [id number] Dict: 04/08/21 1448 Trans: 04/08/21 1455 [id number] Interpreted by: LINO ARNOLD MD Electronically signed by: Impression Primary Impression: Atrial fibrillation Disposition: HOME, SELF-CARE Condition: Stable Departure-Patient Inst. Decision time for Depature: 16:07 Referrals: SELFMATTHIEU MD (PCP/Family) Primary Care Physician Patient Instructions: Atrial Fibrillation (DC) Add. Discharge Instructions: 1. Return to ER for any concerns. Call Dr. Lala office for an appointment to be seen.. Add the new medication called metoprolol to your current medication regimen. All discharge instructions reviewed with patient and/or family. Voiced understanding. Scripts Metoprolol Succinate (Toprol Xl) 50 Mg Tab.er.24h 50 MG PO DAILY, #20 TAB Prov: TENA LANDA CONVERSION DEVELOPER 04/08/21 TENA LANDA CONVERSION DEVELOPER Apr 08, 2021 14:30
[2021-04-08] MEDS ORDERED: NS IV 500 ML 500 ML IV ONE (14:35)
[2021-04-08 14:42] LABS: BASOPHILS % (AUTO) 1 % (0-10); EOSINOPHILS # (AUTO) 0.1 10^3/uL (0.0-0.3); EOSINOPHILS % (AUTO) 2 % (0-10); HEMATOCRIT 46 % (35-52); HEMOGLOBIN 15.4 g/dL (11.5-16.0); LYMPHOCYTES # (AUTO) 1.9 10^3/uL (1.0-4.0); LYMPHOCYTES % (AUTO) 32 % (12-44); MEAN CORPUSCULAR HEMOGLOBIN 28 pg (25-34); MEAN CORPUSCULAR HGB CONC 34 g/dL (32-36); MEAN CORPUSCULAR VOLUME 84 fL (80-99); MONOCYTES # (AUTO) 0.6 10^3/uL (0.0-1.0); MONOCYTES % (AUTO) 10 % (0-12); NEUTROPHILS # (AUTO) 3.3 10^3/uL (1.8-7.8); NEUTROPHILS % (AUTO) 55 % (42-75); PLATELET COUNT 249 10^3/uL (130-400)
[2021-04-08 14:51] LABS: ALBUMIN 4.2 GM/DL (3.2-4.5)
[2021-04-08 14:52] LABS: POTASSIUM 3.9 MMOL/L (3.6-5.0)
[2021-04-08 14:53] LABS: CALCIUM 9.3 MG/DL (8.5-10.1)
[2021-04-08 14:54] LABS: PROTHROMBIN TIME PATIENT 13.4 SEC (12.2-14.7)
[2021-04-08 14:56] LABS: BILIRUBIN,TOTAL 0.6 MG/DL (0.1-1.0)
--- NOTE | 2021-04-08 14:56 | Diagnostic Imaging Report ---
INDICATION: Chest pain. COMPARISON: Comparison made with prior examination from 06/07/2020. FINDINGS: The heart size, mediastinal configuration, and pulmonary vascularity are within normal limits. There is no pleural effusion, pneumothorax, or pneumonia. The osseous structures are unremarkable. IMPRESSION: No acute cardiopulmonary abnormality. Dictated by: Dictated on workstation # [id number]
[2021-04-08 14:58] LABS: CREATININE SERUM 0.93 MG/DL (0.60-1.30)
[2021-04-08 15:00] LABS: MAGNESIUM 1.9 MG/DL (1.6-2.4)
[2021-04-08] MEDS ORDERED: meTOprolol 5 MG/5 ML (LOPRESSOR) VIAL IV ONE (15:30)
[2021-04-08 15:53] LABS: FREE T4 (FREE THYROXINE) 1.16 NG/DL (0.70-1.48)
[2021-04-08] MEDS ORDERED: METO-352 PO (16:04)
[2021-04-08] MEDS ORDERED: meTOproloL SUCCINATE 50 MG (TOPROL XL) TAB PO SCH ×2 (16:15)
[2021-04-08 16:55] VITALS: BP 137/68
== END 2021-04-08 16:55 | disposition home or self-care (01) ==
LOC: EDUNIT# 14:03 → ER 14:05
DX: I48.91 Unspecified atrial fibrillation (principal); R00.0 Tachycardia, unspecified; I10 Essential (primary) hypertension; E03.9 Hypothyroidism, unspecified; Z79.82 Long term (current) use of aspirin; Z79.890 Hormone replacement therapy; Z79.899 Other long term (current) drug therapy
CPT/HCPCS: 36415; 71045; 80053; 83735; 83874; 83880; 84439; 84443; 84484; 85025; 85610; 85730; 93005; 93041

== ENCOUNTER → 2021-04-26 | Outpatient (CLI) | payer MEDICARE ==
[~2021-04-26] MED LIST changes: +METO-352 PO
== END ==
LOC: CARD 12:30
PROVIDERS: ATTEND Nurse Practitioner Family
DX: R00.1 Bradycardia, unspecified (principal)
CPT/HCPCS: 93225; 93226

== ENCOUNTER 2021-05-14 20:46 | Emergency (ER) | payer MEDICARE ==
[~2021-05-14] VITALS: Ht 165.1 cm; Wt 117.9 kg
[2021-05-14 21:47] VITALS: BP 178/148
[2021-05-14 22:36] LABS: BASOPHILS % (AUTO) 0 % (0-10); EOSINOPHILS # (AUTO) 0.2 10^3/uL (0.0-0.3); EOSINOPHILS % (AUTO) 3 % (0-10); HEMATOCRIT 46 % (35-52); HEMOGLOBIN 15.3 g/dL (11.5-16.0); LYMPHOCYTES # (AUTO) 1.9 10^3/uL (1.0-4.0); LYMPHOCYTES % (AUTO) 28 % (12-44); MEAN CORPUSCULAR HEMOGLOBIN 28 pg (25-34); MEAN CORPUSCULAR HGB CONC 33 g/dL (32-36); MEAN CORPUSCULAR VOLUME 84 fL (80-99); MEAN PLATELET VOLUME 9.5 fL (9.0-12.2); MONOCYTES # (AUTO) 0.6 10^3/uL (0.0-1.0); MONOCYTES % (AUTO) 8 % (0-12); NEUTROPHILS # (AUTO) 4.2 10^3/uL (1.8-7.8); NEUTROPHILS % (AUTO) 61 % (42-75); PLATELET COUNT 225 10^3/uL (130-400); WHITE BLOOD COUNT 6.9 10^3/uL (4.3-11.0)
[2021-05-14 22:45] LABS: CREATININE SERUM 0.89 MG/DL (0.60-1.30)
[2021-05-14 23:10] LABS: FREE T4 (FREE THYROXINE) 1.19 NG/DL (0.70-1.48)
--- NOTE | 2021-05-14 23:27 | ED Cardiac General ---
History of Present Illness General Chief Complaint: Cardiac/General Problems Stated Complaint: IRREGULAR HEART RATE Source: patient Exam Limitations: no limitations History of Present Illness Date Seen by Provider: May 14, 2021 Time Seen by Provider: 21:08 Initial Comments This is 70-year-old woman presents to the emergency room with concerns about irregular heart rate with occasional brief tachycardia lasting only seconds at a time. She does have history of atrial fibrillation in 2016 that recurred on April 08. She reports being in atrial fibrillation nearly continuously since April 08. She is anticoagulated on Eliquis. She takes rhythm controlling medications including Cardizem 360 mg each morning and Toprol-XL 50 mg daily. She had COVID-19 on April 14 and believes the recurrence of A. fib on April 08 was likely due to the early effects of Covid vaccination. Dr. Rivera is her senior maintenance technician and Dr. HORNER is her primary care provider. Heart rate is controlled at this time and she is alternating between brief runs of atrial fibrillation and sinus rhythm. Allergies and Home Medications Allergies Coded Allergies: prednisone (Verified Allergy, Intermediate, FLUSHED/REDNESS, 08/02/18) Penicillins (Verified Allergy, Mild, HIVES, 08/02/18) Sulfa (Sulfonamide Antibiotics) (Verified Allergy, Mild, RASH, 08/02/18) Patient Home Medication List Home Medication List Reviewed: Yes Aspirin (Aspir 81) 81 Mg Tablet.dr, 81 MG PO DAILY, (Reported) Entered as Reported by: JULIET RANGEL on 08/02/18 1144 Diltiazem HCl (Cartia Xt) 180 Mg Cap.er.24h, 360 MG PO DAILY, (Reported) Entered as Reported by: CLEMENT MORALES on 07/29/16 1043 Levothyroxine Sodium (Levothyroxine Sodium) 125 Mcg Tablet, 125 MCG PO DAILY, (Reported) Entered as Reported by: CLEMENT MORALES on 07/29/16 1043 Lisinopril (Lisinopril) 10 Mg Tablet, 10 MG PO DAILY Prescribed by: CHRIS HOBBS on 05/14/21 0779 Metoprolol Succinate (Toprol Xl) 50 Mg Tab.er.24h, 50 MG PO DAILY Prescribed by: TENA LANDA on 04/08/21 1604 Review of Systems Review of Systems Constitutional: no symptoms reported EENTM: No Symptoms Reported Respiratory: No Symptoms Reported Cardiovascular: See HPI Gastrointestinal: No Symptoms Reported Genitourinary: No Symptoms Reported Musculoskeletal: no symptoms reported Skin: no symptoms reported Psychiatric/Neurological: No Symptoms Reported Endocrine: No Symptoms Reported Hematologic/Lymphatic: No Symptoms Reported Past Fxluecz-Alfjxy-Gdqedl Hx Patient Social History Tobacco Use?: No Use of E-Cig and/or Vaping dev: No Substance use?: No Alcohol Use?: No Pt feels they are or have been: No Immunizations Up To Date Tetanus Booster (TDap): Less than 5yrs Influenza Vaccine Up-to-Date: No; Not Current First/Initial COVID19 Vaccinat: 09/2020 Second COVID19 Vaccination James: 10/2020 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: [employer] Seasonal Allergies Seasonal Allergies: No Past Medical History Surgeries: Yes (KNEE SCOPE, D&C AND HYSTEROSCOPY) Abdominal, Section, Ear Surgery, Gallbladder, Orthopedic, Thyroidectomy, Tubal Ligation Respiratory: No Cardiac: Yes Atrial Fibrillation, Hypertension Neurological: No 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 Disorders: No 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, 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 Sexually Transmitted Disease: No HIV/AIDS: No Genitourinary: No UTI-Chronic Gastrointestinal: Yes Gastroesophageal Reflux, Diverticulosis, Chronic Diarrhea Musculoskeletal: Yes (BONE SPURS, CHRONIC KNEE PAIN/ARTHRITIS) Arthritis, Chronic Back Pain Endocrine: Yes (PARTIAL THYROIDECTOMY FOR GOITER) Hypothyroidsim HEENT: Yes (GLASSES) Chronic Ear Infection Loss of Vision: Bilateral Hearing Impairment: Deaf Cancer: No Psychosocial: No Integumentary: No Blood Disorders: No Adverse Reaction/Blood Tranf: No (N/A) Family Medical History Arthritis 19 MOTHER Cardiovascular disease 19 MOTHER Completed stroke 19 FATHER 19 MOTHER Diabetes mellitus 19 MOTHER G8 BROTHER Fibrocystic disease of breast G8 SISTER Respiratory disorder G8 BROTHER (Sleep Apnea) Physical Exam Vital Signs Vital Signs - First Documented 05/14/21 21:47 Temp 36.7 Pulse 75 Resp 18 B/P (MAP) 178/148 (158) Pulse Ox 97 O2 Delivery Room Air Capillary Refill : Less Than 3 Seconds Height, Weight, BMI Height: 5'4.00" Weight: 265lbs. 2.0oz. 120.916852se; 43.00 BMI Method:Stated General Appearance: No Apparent Distress, Anxious HEENT: PERRL/EOMI, Normal ENT Inspection Neck: Normal Inspection; No JVD Respiratory: Lungs Clear, Normal Breath Sounds, No Accessory Muscle Use Cardiovascular: No Edema, No Murmur, Irregularly Irregular Gastrointestinal: Non Tender, Soft Extremity: Normal Inspection, No Pedal Edema Neurologic/Psychiatric: Alert, Oriented x3, Normal Mood/Affect Skin: Normal Color, Warm/Dry Progress/Results/Core Measures Results/Orders Lab Results Laboratory Tests Test 05/14/21 22:20 Range/Units White Blood Count 6.9 4.3-11.0 10^3/uL Red Blood Count 5.49 H 3.80-5.11 10^6/uL Hemoglobin 15.3 11.5-16.0 g/dL Hematocrit 46 35-52 % Mean Corpuscular Volume 84 80-99 fL Mean Corpuscular Hemoglobin 28 25-34 pg Mean Corpuscular Hemoglobin Concent 33 32-36 g/dL Red Cell Distribution Width 12.5 10.0-14.5 % Platelet Count 225 130-400 10^3/uL Mean Platelet Volume 9.5 9.0-12.2 fL Immature Granulocyte % (Auto) 0 % Neutrophils (%) (Auto) 61 42-75 % Lymphocytes (%) (Auto) 28 12-44 % Monocytes (%) (Auto) 8 0-12 % Eosinophils (%) (Auto) 3 0-10 % Basophils (%) (Auto) 0 0-10 % Neutrophils # (Auto) 4.2 1.8-7.8 10^3/uL Lymphocytes # (Auto) 1.9 1.0-4.0 10^3/uL Monocytes # (Auto) 0.6 0.0-1.0 10^3/uL Eosinophils # (Auto) 0.2 0.0-0.3 10^3/uL Basophils # (Auto) 0.0 0.0-0.1 10^3/uL Immature Granulocyte # (Auto) 0.0 0.0-0.1 10^3/uL Sodium Level 140 135-145 MMOL/L Potassium Level 4.0 3.6-5.0 MMOL/L Chloride Level 109 H 98-107 MMOL/L Carbon Dioxide Level 19 L 21-32 MMOL/L Anion Gap 12 5-14 MMOL/L Blood Urea Nitrogen 13 7-18 MG/DL Creatinine 0.89 0.60-1.30 MG/DL Estimat Glomerular Filtration Rate 70 BUN/Creatinine Ratio 15 Glucose Level 104 70-105 MG/DL Calcium Level 9.0 8.5-10.1 MG/DL Magnesium Level 2.0 1.6-2.4 MG/DL Thyroid Stimulating Hormone (TSH) 1.00 0.35-4.94 UIU/ML Free Thyroxine 1.19 0.70-1.48 NG/DL My Orders Orders - CHRIS BLACWKELL MD Ekg Tracing (05/14/21 21:08) Monitor-Rhythm Ecg Trace Only (05/14/21 21:08) Basic Metabolic Panel (05/14/21 21:08) Cbc With Automated Diff (05/14/21 21:08) Magnesium (05/14/21 21:08) Ed Iv/Invasive Line Start (05/14/21 21:08) Free T4 (Free Thyroxine) (05/14/21 21:09) Thyroid Stimulating Hormone (05/14/21 21:09) Lisinopril Tablet (Zestril Tablet) (05/14/21 23:45) Medications Given in ED Current Medications Medications Dose Ordered Sig/Tatyana Route Start Time Stop Time Status Last Admin Dose Admin Lisinopril 10 mg ONCE ONCE PO 05/14/21 23:45 05/14/21 23:46 DC 05/15/21 00:00 10 MG Vital Signs/I&O 05/14/21 21:47 Temp 36.7 Pulse 75 Resp 18 B/P (MAP) 178/148 (158) Pulse Ox 97 O2 Delivery Room Air Progress Progress Note : Progress Note Patient remained intermittently in atrial fibrillation. She remained rate controlled. She did not have any chest pain. She was noted to be significantly hypertensive. Review of her chart reveals recurrent episodes of hypertension when evaluated at the hospital. We discussed treating this hypertension with lisinopril. The dose was administered in the ER and a prescription was provided. See discharge instructions for further discussion. Initial ECG Impression Date: May 14, 2021 Initial ECG Impression Time: 21:51 Initial ECG Rate: 99 Comment Sinus rhythm with intermittent runs of either frequent PVCs or A. fib. No ST elevation or depression. Left axis deviation. Departure Impression Primary Impression: Paroxysmal atrial fibrillation Additional Impressions: Palpitations Hypertension Qualified Codes: I10 - Essential (primary) hypertension Disposition: 01 HOME, SELF-CARE Condition: Stable Departure-Patient Inst. Decision time for Depature: 23:48 Referrals: MATTHIEU HORNER MD (PCP/Family) Primary Care Physician Patient Instructions: Atrial Fibrillation, High Blood Pressure ED Add. Discharge Instructions: Take your Eliquis when you get home. Start your new prescription for lisinopril tomorrow. Avoid things that can increase your blood pressure such as excessive salt, excessive caffeine, or stimulants such as decongestant medications, energy drinks, diet supplements, etc. Follow-up with Dr. Rivera as soon as possible. Please call his office on Monday morning to provide an update and to get an appointment scheduled. Return to the emergency room if you have sustained rapid heart rate with your atrial fibrillation that is persistently over 120 bpm or if you have symptoms associated with your atrial fibrillation such as lightheadedness, shortness of breath, chest pain, etc. Call with questions or concerns. All discharge instructions reviewed with patient and/or family. Voiced understanding. Scripts Lisinopril (Lisinopril) 10 Mg Tablet 10 MG PO DAILY, #30 TAB Prov: CHRIS BLACKWELL MD 05/14/21 Copy Copies To 1: TISHA RIVERA MD FACP [facility] CCDS Copies To 2: MATTHIEU HORNER MD, JOSHUA T MD May 14, 2021 23:27
[2021-05-14] MEDS ORDERED: lisINopril 10 MG (PRINIVIL) TABLET PO ONE (23:45)
[2021-05-14] MEDS ORDERED: LISI10TA25 PO (23:52)
== END 2021-05-15 00:10 | disposition home or self-care (01) ==
LOC: EDUNIT# 20:46 → ER 20:49
DX: I48.0 Paroxysmal atrial fibrillation (principal); I10 Essential (primary) hypertension; E89.0 Postprocedural hypothyroidism; Z86.16 Personal history of COVID-19; Z79.01 Long term (current) use of anticoagulants; Z79.82 Long term (current) use of aspirin; Z79.899 Other long term (current) drug therapy
CPT/HCPCS: 36415; 80048; 83735; 84439; 84443; 85025; 93005; 93041

== ENCOUNTER → 2021-06-03 | Outpatient (CLI) | payer MEDICARE ==
[~2021-06-03] MED LIST changes: +LISI10TA25 PO
== END ==
LOC: CARD 08:30
PROVIDERS: ATTEND Nurse Practitioner Family
DX: I48.0 Paroxysmal atrial fibrillation (principal)
CPT/HCPCS: 93225; 93226

== ENCOUNTER → 2021-06-15 | Outpatient (CLI) | payer MEDICARE ==
[~2021-06-15] MED LIST changes: +CATHETER FLUSH 10 ML SYR IVP PRN; +REGADENOSON 0.4 MG/5 ML SYR (LEXISCAN) IV ONE
[2021-06-15 12:46] VITALS: BP 153/76
--- NOTE | 2021-06-16 08:50 | STRESS TEST ---
DATE OF SERVICE: 06/15/2021 RESTING AND POST REGADENOSON TECHNETIUM-99M TETROFOSMIN SPECT CT IMAGING ORDERING PHYSICIAN: Dr. Rivera. PRIMARY PHYSICIAN: Dr. King. CLINICAL DIAGNOSES: Palpitations. Baseline images were carried out after injection of 10.92 mCi of technetium-99m Tetrofosmin. This was followed by 0.4 mg regadenoson and 30.7 mCi of technetium-99m Tetrofosmin for stress imaging. The electrocardiogram showed sinus rhythm with frequent premature atrial contractions. The electrocardiogram did not change significantly with the regadenoson infusion. Review of images at rest and following stress indicate basal anterolateral and basal inferior perfusion defects that appears transient. Gated images show normal global left ventricular systolic function with normal regional wall motion. Left ventricular ejection fraction is calculated to be 79%. CONCLUSIONS: 1. This study is suggestive of a moderate amount of basal anterolateral and basal inferior ischemia. 2. Normal regional wall motion. 3. Normal global left ventricular systolic function with an ejection fraction of 79%. Job ID: [id number] DocumentID: [id number] Dictated Date: 06/16/2021 08:27:13 Sld Teacher Date: 06/16/2021 08:49:05 Dictated By: TISHA RIVERA MD, MA, FACP, FACC,
== END ==
LOC: CARD 11:02
PROVIDERS: ATTEND Internal Medicine Cardiovascular Disease
DX: I51.7 Cardiomegaly (principal)
CPT/HCPCS: 78452; 93017; 93306; A9502

== ENCOUNTER 2021-06-22 08:02 | Day surgery (SDC) | payer MEDICARE ==
[2021-06-22] VITALS (8 sets, daily range): BP systolic 92–107; BP diastolic 56–76
[~2021-06-22] VITALS: Ht 165 cm; Wt 116.3 kg
[~2021-06-22 08:02] MED LIST changes: -CATHETER FLUSH 10 ML SYR IVP PRN; -REGADENOSON 0.4 MG/5 ML SYR (LEXISCAN) IV ONE
[2021-06-22] MEDS ORDERED: LIDOCAINE 1% INJ 50 ML (XYLOCAINE) VIAL ONE (08:19)
[2021-06-22] MEDS ORDERED: NS IV 1000 ML 1,000 ML ONE (08:19)
[2021-06-22] MEDS ORDERED: HEParin (CATH LAB) 2,000 ML IV ONE (08:19)
[2021-06-22] MEDS ORDERED: NS IV 1000 ML 1,000 ML IV SCH ×2 (08:30→13:00)
[2021-06-22 08:55] LABS: HEMATOCRIT 45 % (35-52); MEAN CORPUSCULAR HEMOGLOBIN 28 pg (25-34); MEAN CORPUSCULAR HGB CONC 33 g/dL (32-36); MEAN CORPUSCULAR VOLUME 83 fL (80-99); MEAN PLATELET VOLUME 9.8 fL (9.0-12.2); PLATELET COUNT 230 10^3/uL (130-400); WHITE BLOOD COUNT 6.1 10^3/uL (4.3-11.0)
[2021-06-22 09:13] LABS: ALBUMIN 4.1 GM/DL (3.2-4.5); BILIRUBIN,TOTAL 1.1 MG/DL (0.1-1.0); CALCIUM 9.2 MG/DL (8.5-10.1); CREATININE SERUM 0.92 MG/DL (0.60-1.30); POTASSIUM 4.2 MMOL/L (3.6-5.0); TOTAL PROTEIN 6.6 GM/DL (6.4-8.2)
[2021-06-22] MEDS ORDERED: APIX5TAB PO (09:14)
[2021-06-22] MEDS ORDERED: CHOL200059 PO (09:14)
[2021-06-22] MEDS ORDERED: ASCO500T17 PO (09:14)
[2021-06-22] MEDS ORDERED: KRIL1CAP PO (09:14)
[2021-06-22] MEDS ORDERED: DILT180C85 PO (09:14)
[2021-06-22] MEDS ORDERED: METO50TA7 PO (09:14)
[2021-06-22] MEDS ORDERED: LISI10TA25 PO (09:14)
[2021-06-22] MEDS ORDERED: LEVO112T2 PO (09:14)
[2021-06-22 09:20] LABS: INR 1.1 (0.8-1.4); PROTHROMBIN TIME PATIENT 14.6 SEC (12.2-14.7)
[2021-06-22] MEDS ORDERED: fentaNYL INJ 100 MCG/2 ML AMP ONE (12:00)
[2021-06-22] MEDS ORDERED: MIDAZOLAM 5 MG/5 ML (VERSED) VIAL ONE (12:00)
--- NOTE | 2021-06-22 12:48 | Cardiac Procedure Note-CS/ASA ---
Pre-Procedure Note Pre-Op Procedure Note H&P Reviewed The H&P was reviewed, patient examined and no changes noted. Date H&P Reviewed: Jun 22, 2021 Time H&P Reviewed: 12:00 Conscious Sedation Pre-Proced Time 12:00 ASA Score 3 For ASA 3 and 4: Consider anesthesia and medical clearance. Also, for patients with a history of failed moderate sedation consider anesthesia. Airway Lungs Heart ASA score ASA 1: a normal healthy patient ASA 2: a patient with a mild systemic disease (mid diabetes, controlled hypertension, obesity ASA 3: a patient with a severe systemic disease that limits activity (angina, COPD, prior Myocardial infarction) ASA 4: a patient with an incapacitating disease that is a constant threat to life (CHF, renal failure) ASA 5: a moribund patient not expected to survive 24 hrs. (ruptured aneurysm) ASA 6: a declared brain- patient whose organs are being harvested. For emergent operations, add the letter E after the classification Mallampati Classification Grade 2 Sedation Plan Analgesia, Amnesia, Plan communicated to team members, Discussed options with patient/fam, Discussed risks with patient/fam The patient is an appropriate candidate to undergo the planned procedure, sedation, and anesthesia. The patient immediately re-assessed prior to indication. TISHA GRAYSON MD FACP [facility] Jun 22, 2021 12:48
[2021-06-22] MEDS ORDERED: FLEC100T PO (12:51)
--- NOTE | 2021-06-22 12:52 | Discharge Inst-Cardiology ---
Discharge Inst-Cardiac Discharge Medications New Medications: Flecainide Acetate (Flecainide Acetate) 100 Mg Tablet 100 MG PO BID for 30 Days, #60 TAB 3 Refills Continued Medications: Apixaban (Eliquis) 5 Mg Tablet 5 MG PO BID, TAB Ascorbic Acid (Vitamin C) 500 Mg Tablet 500 MG PO 1200, TAB Cholecalciferol (Vitamin D3) (Vitamin D3) 50 Mcg Tablet 50 MCG PO 1200, TAB Diltiazem HCl (Diltiazem 24Hr ER) 180 Mg Cap.er.24h 180 MG PO DAILY, CAP Krill/Om-3/Dha/Epa/Phospho/Ast ([place]-3 Krill 750 mg) 1 Each Capsule 1 EACH PO 1200, CAP Levothyroxine Sodium (Synthroid) 112 Mcg Tablet 112 MCG PO DAILY, TAB Lisinopril (Lisinopril) 10 Mg Tablet 10 MG PO DAILY, TAB Metoprolol Succinate (Metoprolol Succinate) 50 Mg Tab.er.24h 50 MG PO DAILY, TAB TISHA GRAYSON MD FACP [facility]AC [facility] Jun 22, 2021 12:52
--- NOTE | 2021-06-22 12:52 | Discharge Inst-Post CATH ---
Discharge Inst-CATH/EP Post Cardiac Cath/EP D/C Inst Follow Up/Plan F/u with Dr Rivera next week ACTIVITY * Go Home directly and rest. * Limit activity of the leg (or wrist if it was used) for 7 days including aerobics, swimming, jogging, bicycling, etc. * Restrict stair-climbing for 7 days if possible, if not, climb up with your no n-cath leg, then bring together on the same step. * Avoid lifting, pushing, pulling or excessive movement of the affected ext remity for 7 days. * Customary sexual activity may be resumed after 2 days-use caution not to use a position that strains or causes pain to the affected extremity. * No driving for 24 hours. * NO SMOKING. * Avoid straining for bowel movements for 7 days. * Gentle walking on level ground is allowed. * Returning to work will depend on the type of procedure and the results. Your doctor will discuss this with you. CALL YOUR DOCTOR FOR ANY OF THE FOLLOWING: *If bleeding from the puncture site occurs- Apply gentle pressure to site with clean cloth and call your doctor or EMS. * If a knot or lump forms under the skin, increases in size, or causes pain. * If bruising appears to be worsening or moving further down your leg instead of disappearing. * Temperature above 101 F. CARE OF YOUR GROIN INCISION; * Bruising or purple discoloration of the skin near the puncture site is common. * You may shower only, no bathtub bathing for 5 days. Be careful to avoid slipping as your leg may feel stiff. * If a closure device was used on your femoral artery, please see the attached guide regarding care of the device and your leg. * Leave dressing on FOR 24 hours. CARE OF YOUR WRIST INCISION; * Bruising or purple discoloration of the skin near the puncture site is common. * You may shower. * DO NOT submerge wrist. * Leave dressing on FOR 24 hours. TISHA RIVERA MD FACP FAC CCDS Jun 22, 2021 12:52
[2021-06-22] MEDS ORDERED: PATIENT MAY USE OWN MEDS, ALL PO SCH (13:00)
--- NOTE | 2021-06-22 14:31 | CARDIAC CATHETERIZATION ---
DATE OF SERVICE: 06/22/2021 CARDIAC CATHETERIZATION REPORT The patient is a 71-year-old lady with palpitations. A myocardial perfusion imaging study recently was indicative of anteroapical ischemia. Cardiac catheterization was recommended. Informed consent was obtained. DESCRIPTION OF PROCEDURE: She was brought to the cardiac catheterization laboratory in a fasting state. Right groin was prepared and draped in the usual sterile fashion. Lidocaine 1% was used for local anesthesia. Modified Seldinger technique was used to advance a 5-Khmer sheath in right femoral artery, 5-Khmer JL4 catheter was used for left coronary angiography, 5-Khmer JR4 catheter was used for right coronary angiography, 5-Khmer pigtail catheter was used for left heart catheterization and left ventricular angiography. Angiography of the right femoral artery was carried out through the sheath. Mynx was used to achieve hemostasis following sheath removal. She tolerated the procedure well. HEMODYNAMICS: Left ventricular end-diastolic pressure following coronary angiography was 14 mmHg. There was no significant pressure gradient on pullback across the aortic valve. CORONARY ANGIOGRAPHY: Left main coronary artery is free of significant disease. Left anterior descending, left circumflex and right coronary arteries have diffuse mild to moderate plaques. Right coronary artery is dominant. LEFT VENTRICULAR ANGIOGRAPHY: Left ventricular angiography was carried out in the right anterior oblique projection. Global left ventricular systolic function is normal. Left ventricular ejection fraction approximately 60%. CONCLUSIONS: 1. Angiographically mild to moderate disease, nonobstructive disease. 2. Normal global left ventricular systolic function with ejection fraction of 60%. 3. Left ventricular end-diastolic pressure 14 mmHg. DISCUSSION AND RECOMMENDATIONS: Based on the results of the study, myocardial perfusion imaging appears to have been false positive. She had been on flecainide for control of paroxysmal atrial fibrillation, which had been working well, but this was stopped after the abnormal stress test. After today's cardiac catheterization that does not exhibit any significant obstructive coronary artery disease, it appears reasonable to resume flecainide. Continuing outpatient followup is advised. Job ID: [id number] DocumentID: [id number] Dictated Date: 06/22/2021 12:42:43 Hand Therapist Date: 06/22/2021 14:29:56 Dictated By: TISHA GRAYSON MD, MA, FACP, FACC,
== END 2021-06-22 15:37 | disposition home or self-care (01) ==
LOC: CATH 08:02
PROVIDERS: ATTEND Internal Medicine Cardiovascular Disease
DX: I48.0 Paroxysmal atrial fibrillation (principal); I25.10 Atherosclerotic heart disease of native coronary artery without angina pectoris; E89.0 Postprocedural hypothyroidism; K21.9 Gastro-esophageal reflux disease without esophagitis; E66.9 Obesity, unspecified; Z68.41 Body mass index [BMI] 40.0-44.9, adult; I49.8 Other specified cardiac arrhythmias; Z87.891 Personal history of nicotine dependence; Z79.899 Other long term (current) drug therapy; Z79.01 Long term (current) use of anticoagulants; Z79.890 Hormone replacement therapy
CPT/HCPCS: 80053; 80061; 85027; 85610; 85730; 87081; 93005; 93458; C1760; C1894; 36415

== ENCOUNTER 2021-06-26 13:07 | Emergency (ER) | payer MEDICARE ==
[~2021-06-26] VITALS: Ht 165.1 cm; Wt 116.1 kg
[~2021-06-26 13:07] MED LIST changes: +ASCO500T17 PO; +CHOL200059 PO; +DILT180C85 PO; +FLEC100T PO; +KRIL1CAP PO; +LEVO112T2 PO; +METO50TA7 PO
--- NOTE | 2021-06-26 13:38 | ED Cardiac General ---
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 PT A&OX4. Source: patient Exam Limitations: no limitations (ELIDIA SHAVER MED STUDENT) History of Present Illness Date Seen by Provider: Jun 26, 2021 Time Seen by Provider: 13:20 Initial Comments Mrs. Lopez is a 71yo female patient of Dr. Rivera with PMH Hypothyroid, AFIB, and heart Cath performed ~3days ago that presents to ED due to low heart rate. States that this started this morning, although her heart rate has been on the lower side for a couple of days. HR is ~45 in the ED. Pt states it was hanging around 60 for the past couple of days. She was started on flecanide 200mg daily after her heart cath. She currently takes the flecanide, metoprolol, and cardia. She monitors her blood pressure and heart rate at home. She denies any chest pain or orthostatic symptoms. Does say shes just generally been feeling "yucky", maybe a bit more tired. She has a followup appointment scheduled with Dr. Rivera on Monday. Does not smoke, drink, or use drugs. (ELIDIA SHAVER MED STUDENT) Initial Comments Patient has been taking flecainide 50 mg twice daily prior to her heart cath. This was stopped because there was concern about possible coronary artery disease and angina. After the heart cath revealed no obstructive disease, flecainide was restarted at 100 mg twice daily. Her problems with bradycardia seem to start after that. (CHRIS BLACKWELL MD) Allergies and Home Medications Allergies Coded Allergies: prednisone (Verified Allergy, Intermediate, FLUSHED/REDNESS, 08/02/18) Penicillins (Verified Allergy, Mild, HIVES, 08/02/18) Sulfa (Sulfonamide Antibiotics) (Verified Allergy, Mild, RASH, 08/02/18) Patient Home Medication List Home Medication List Reviewed: Yes (CHRIS BLACKWELL MD) Apixaban (Eliquis) 5 Mg Tablet, 5 MG PO BID, (Reported) Entered as Reported by: ABENA CODY on 06/22/21 0914 Ascorbic Acid (Vitamin C) 500 Mg Tablet, 500 MG PO 1200, (Reported) Entered as Reported by: ABENA CODY on 06/22/21913 Cholecalciferol (Vitamin D3) (Vitamin D3) 50 Mcg Tablet, 50 MCG PO 1200, (Reported) Entered as Reported by: ABENA CODY on 06/22/21913 Diltiazem HCl (Diltiazem 24Hr ER) 180 Mg Cap.er.24h, 180 MG PO DAILY, (Reported) Entered as Reported by: ABENA CODY on 06/22/21913 Flecainide Acetate (Flecainide Acetate) 100 Mg Tablet, 100 MG PO BID Prescribed by: TISHA RIVERA on 06/22/21 1251 Krill/Om-3/Dha/Epa/Phospho/Ast (Megared [place]-3 Krill 750 mg) 1 Each Capsule, 1 EACH PO 1200, (Reported) Entered as Reported by: ABENA CODY on 06/22/21913 Levothyroxine Sodium (Synthroid) 112 Mcg Tablet, 112 MCG PO DAILY, (Reported) Entered as Reported by: ABENA CODY on 06/22/21913 Lisinopril (Lisinopril) 10 Mg Tablet, 10 MG PO DAILY, (Reported) Entered as Reported by: ABENA CODY on 06/22/21913 Metoprolol Succinate (Metoprolol Succinate) 50 Mg Tab.er.24h, 50 MG PO DAILY, (Reported) Entered as Reported by: ABENA CODY on 06/22/21913 Discontinued Medications Aspirin (Aspir 81) 81 Mg Tablet.dr, 81 MG PO DAILY, (Reported) Discontinued Reason: No Longer Taking Entered as Reported by: JULIET RANGEL on 08/02/18 1144 Diltiazem HCl (Cartia Xt) 180 Mg Cap.er.24h, 360 MG PO DAILY, (Reported) Discontinued Reason: No Longer Taking Entered as Reported by: CLEMENT MORALES on 07/29/16 1043 Levothyroxine Sodium (Levothyroxine Sodium) 125 Mcg Tablet, 125 MCG PO DAILY, (Reported) Discontinued Reason: No Longer Taking Entered as Reported by: CLEMENT MORALES on 07/29/16 1043 Lisinopril (Lisinopril) 10 Mg Tablet, 10 MG PO DAILY Discontinued Reason: No Longer Taking Prescribed by: CHRIS HOBBS on 05/14/21 8192 Metoprolol Succinate (Toprol Xl) 50 Mg Tab.er.24h, 50 MG PO DAILY Discontinued Reason: No Longer Taking Prescribed by: TENA LANDA on 04/08/21 1604 Review of Systems Review of Systems Constitutional: No chills, No fever EENTM: No Blurred Vision, No Double Vision Respiratory: Denies Cough, Denies Shortness of Air Cardiovascular: Denies Chest Pain, Denies Edema; Irregular Heart Rate; Denies Syncope Gastrointestinal: Denies Abdominal Pain, Denies Blood Streaked Stools, Denies Constipated, Denies Diarrhea, Denies Nausea, Denies Vomiting Genitourinary: Denies Hematuria; Other (no dysuria) Musculoskeletal: No joint pain, No joint swelling Skin: No lesions, No rash Psychiatric/Neurological: Denies Headache, Denies Numbness ([employer] STUDENT) Past Yjuzgig-Qqyuby-Rgblpq Hx Patient Social History Tobacco Use?: No Use of E-Cig and/or Vaping dev: No Substance use?: No Alcohol Use?: No ([email or web address]) Immunizations Up To Date Tetanus Booster (TDap): Less than 5yrs Influenza Vaccine Up-to-Date: No; Not Current First/Initial COVID19 Vaccinat: 09/2020 Second COVID19 Vaccination James: 10/2020 Third COVID19 Vaccination Date: N/A COVID19 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[email or web address]) Seasonal Allergies Seasonal Allergies: No [email or web address]) Past Medical History Surgeries: Yes (KNEE SCOPE, D&C AND HYSTEROSCOPY) Abdominal, Section, Ear Surgery, Gallbladder, Orthopedic, Thyroidectomy, Tubal Ligation Respiratory: No Currently Using BIPAP: No Cardiac: Yes Atrial Fibrillation, Hypertension Neurological: No 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 Disorders: No CLINICAL FACULTY History: Tubal Ligation, Menopausal Sexually Transmitted Disease: No HIV/AIDS: No Genitourinary: No UTI-Chronic Gastrointestinal: Yes Gastroesophageal Reflux, Diverticulosis, Chronic Diarrhea Musculoskeletal: Yes (BONE SPURS, CHRONIC KNEE PAIN/ARTHRITIS) Arthritis, Chronic Back Pain Endocrine: Yes (PARTIAL THYROIDECTOMY FOR GOITER) Hypothyroidsim HEENT: Yes (GLASSES) Chronic Ear Infection Loss of Vision: Bilateral Hearing Impairment: Deaf Cancer: No Psychosocial: No Integumentary: No Blood Disorders: No Adverse Reaction/Blood Tranf: No (N/A) (ELIDIA SHAVER MED STUDENT) Family Medical History Arthritis 19 MOTHER Cardiovascular disease 19 MOTHER Completed stroke 19 FATHER 19 MOTHER Diabetes mellitus 19 MOTHER G8 BROTHER Fibrocystic disease of breast G8 SISTER Respiratory disorder G8 BROTHER (Sleep Apnea) Physical Exam Vital Signs Vital Signs - First Documented 06/26/21 13:13 Temp 36.3 Pulse 46 Resp 20 B/P (MAP) 127/73 (91) Pulse Ox 97 O2 Delivery Room Air (CHRIS BLACKWELL MD) Vital Signs Capillary Refill : Less Than 3 Seconds (ELIDIA SHAVER MED STUDENT) Height, Weight, BMI Height: 5'4.00" Weight: 265lbs. 2.0oz. 120.160898yn; 42.00 BMI Method:Stated General Appearance: No Apparent Distress, WD/WN HEENT: PERRL/EOMI, Pharynx Normal, Moist Mucous Membranes Respiratory: Chest Non Tender, Lungs Clear, Normal Breath Sounds Cardiovascular: No Edema, No Murmur, Normal Peripheral Pulses, Bradycardia (~45) Gastrointestinal: Normal Bowel Sounds, Non Tender, Soft Extremity: Non Tender, No Calf Tenderness, No Pedal Edema Neurologic/Psychiatric: Alert, Oriented x3, No Motor/Sensory Deficits Skin: Normal Color, Warm/Dry (ELIDIA SHAVER MED STUDENT) Progress/Results/Core Measures Results/Orders Lab Results Laboratory Tests Test 06/26/21 13:45 Range/Units Sodium Level 139 135-145 MMOL/L Potassium Level 4.5 3.6-5.0 MMOL/L Chloride Level 106 98-107 MMOL/L Carbon Dioxide Level 19 L 21-32 MMOL/L Anion Gap 14 5-14 MMOL/L Blood Urea Nitrogen 15 7-18 MG/DL Creatinine 0.87 0.60-1.30 MG/DL Estimat Glomerular Filtration Rate 71 BUN/Creatinine Ratio 17 Glucose Level 112 H 70-105 MG/DL Calcium Level 9.2 8.5-10.1 MG/DL Magnesium Level 1.8 1.6-2.4 MG/DL Thyroid Stimulating Hormone (TSH) 1.23 0.35-4.94 UIU/ML Free Thyroxine 1.17 0.70-1.48 NG/DL (CHRIS BLACKWELL MD) My Orders Orders - CHRIS BLACKWELL MD Ed Iv/Invasive Line Start (06/26/21 13:29) Ekg Tracing (06/26/21 13:29) Monitor-Rhythm Ecg Trace Only (06/26/21 13:29) Basic Metabolic Panel (06/26/21 13:29) Magnesium (06/26/21 13:29) Orthostatic Vital Signs (Adult (06/26/21 13:29) Thyroid Stimulating Hormone (06/26/21 13:33) Free T4 (Free Thyroxine) (06/26/21 13:33) (CHRIS BLACKWELL MD) Vital Signs/I&O 06/26/21 06/26/21 06/26/21 13:13 14:12 15:15 Temp 36.3 Pulse 46 43 46 48 46 Resp 20 20 B/P (MAP) 127/73 (91) 124/71 (88) 121/74 130/68 (88) 127/64 (85) Pulse Ox 97 98 O2 Delivery Room Air (CHRIS BLACKWELL MD) Blood Pressure Mean: 91 Progress Progress Note : Progress Note Thyroid and electrolyte labs were evaluated and were unremarkable. Patient's heart rate remained in the high 30s and 40s. The lowest heart rate noted by this provider was 38. Patient reported feeling rather fatigued and slightly "wobbly" but denied any lightheadedness, dizziness, chest pain, or shortness of breath. She was able to ambulate safely. I discussed the situation with Dr. Cage. He suggested cutting the Cardizem 24-hour dose from 360 down to 180 since she takes the 180 mg capsules. Patient was hesitant to make this change as she has been on Cardizem 24-hour 360 mg for many years and states the flecainide seemed to be the trigger for the change in heart rate. She prefers to hold her evening dose of flecainide. I was agreeable to this. I suggested that she see how her heart rate is in the morning if her heart rate is more acceptable, she may resume her flecainide at the previous dose of 50 mg twice daily instead of 100 mg twice daily. If heart rate is still slow, I suggested that she resume flecainide 100 mg but cut the Cardizem 24-hour down to [address] suggested by [address] Cage. (CHRIS BLACKWELL MD) Initial ECG Impression Date: Jun 26, 2021 Initial ECG Impression Time: 14:02 Initial ECG Rate: 47 Initial ECG Rhythm: S.Sebastián Comment Sinus bradycardia arrhythmia with no ST elevation or depression. Right bundle branch block with prolonged IN interval of 247 ms. No axis deviation (CHRIS BLACKWELL MD) Departure Impression Primary Impression: Bradycardia Additional Impressions: Sinus arrhythmia Encounter for medication review and counseling Disposition: 01 HOME, SELF-CARE Condition: Stable Departure-Patient Inst. Decision time for Depature: 15:03 (CHRIS BLACKWELL MD) Referrals: SELFMATTHIEU MD (PCP/Family) Primary Care Physician Patient Instructions: Arrhythmias Add. Discharge Instructions: You may skip your evening dose of flecainide. If this does not achieve the desired improvement in heart rate, then resume taking flecainide in the morning and decrease your Cardizem ER 24-hour dose to 180 mg instead of 360 mg. If skipping this evening's dose of flecainide does result in the desired improvement in heart rate by morning, then resume flecainide at the 50 mg dose instead of the [address] Rivera's office first thing in the morning. Return to the ER if you have worsening symptoms including development of lightheadedness, shortness of breath, or intolerable weakness/fatigue. Also return to the ER if you have persistent heart rate in the 30s. Call with questions or concerns. All discharge instructions reviewed with patient and/or family. Voiced unders tanding. Medical Student Attestation and Attending Note: I have personally interviewed and examined this patient along with Elidia Shaver, MS 4. I have reviewed student documentation including history, physical, and assessments. I agree with the documentation except where otherwise noted. Exam: General: Alert, oriented, no acute distress, well developed HEENT: Normocephalic and atraumatic Heart: Irregular bradycardia without murmur Lungs: Clear to auscultation bilaterally with normal effort Abdomen: Soft, nontender, nondistended, normal bowel sounds Extremities: No significant edema Neuropsych: Alert, oriented, no focal deficits Skin: Warm and dry without rashes (CHRIS BLACKWELL MD) Copy Copies To 1: TISHA RIVERA MD FACP FAC CCDS Copies To 2: MATTHIEU HORNER MD, DEREK MED STUDENT Jun 26, 2021 13:38 CHRIS BLACKWELL MD Jun 26, 2021 15:05
[2021-06-26 14:07] LABS: POTASSIUM 4.5 MMOL/L (3.6-5.0)
[2021-06-26 14:09] LABS: CALCIUM 9.2 MG/DL (8.5-10.1)
[2021-06-26 14:12] VITALS: BP_SYST 124; BP_SYST 127; BP_SYST 130; BP_DIAS 64; BP_DIAS 68; BP_DIAS 71
[2021-06-26 14:13] LABS: CREATININE SERUM 0.87 MG/DL (0.60-1.30)
[2021-06-26 14:15] LABS: MAGNESIUM 1.8 MG/DL (1.6-2.4)
[2021-06-26 14:37] LABS: FREE T4 (FREE THYROXINE) 1.17 NG/DL (0.70-1.48)
[2021-06-26 15:15] VITALS: BP 121/74
== END 2021-06-26 15:15 | disposition home or self-care (01) ==
LOC: EDUNIT# 13:07 → ER 13:08
DX: I49.8 Other specified cardiac arrhythmias (principal); Z51.81 Encounter for therapeutic drug level monitoring
CPT/HCPCS: 36415; 80048; 83735; 84439; 84443; 93005; 93041

== ENCOUNTER 2022-09-05 05:39 | Outpatient (CLI) | payer MEDICARE ==
[~2022-09-05] VITALS: Ht 165.1 cm; Wt 113.0 kg
== END 2022-09-05 14:25 | disposition home or self-care (01) ==
LOC: PREOP 05:39
PROVIDERS: ATTEND Specialist
DX: Z01.818 Encounter for other preprocedural examination (principal)

== ENCOUNTER 2022-09-09 06:33 | Day surgery (SDC) | payer MEDICARE ==
[~2022-09-09] VITALS: Ht 169.1 cm; Wt 113.0 kg
[2022-09-09] MEDS ORDERED: TIMOLOL 0.5% (CATARACTS) 0.3 ML BTL OU PRN (06:45)
[2022-09-09] MEDS ORDERED: MOXIFLOXACIN OPHTH SOLN 5 MG/ML 0.3 ML SYRINGE OP ONE (06:45)
[2022-09-09] MEDS ORDERED: POVIDONE (BETADINE) OPHTH SOLN 5% 30 ML OP ONE (06:45)
[2022-09-09] MEDS: TETRACAINE 0.5% OPHTH SOLN 4 ML BTL (SINGLE DOSE ONLY) OU PRN ×4 (06:49→07:07)
[2022-09-09 06:50] VITALS: BP 151/70
[2022-09-09] MEDS: TROPICAMIDE 1% OPH SOLN (MYDRIACYL) 15 ML BTL OP SCH ×3 (06:57→07:07)
[2022-09-09] MEDS: PHENYLEPHRINE 10% OPHTH (NEO-SYN) 5 ML BTL OU SCH ×3 (06:57→07:07)
[2022-09-09] MEDS ORDERED: MIDAZOLAM 2 MG/2 ML (VERSED) VIAL ONE (07:32)
--- NOTE | 2022-09-09 07:43 | Ophthalmologist Pre-Op Note ---
Pre-Operative Progress Note H&P Reviewed The H&P was reviewed, patient examined and no changes noted. Date H&P Reviewed: Sep 09, 2022 Time H&P Reviewed: 07:42 Pre-Op Dx Cataract, Left Eye CUBA ALBERTO MD Sep 09, 2022 07:43
--- NOTE | 2022-09-09 08:02 | Ophthalmology Operative Report ---
Cataract removal/placement IOL PREOPERATIVE DIAGNOSIS: Cataract Left Eye POSTOPERATIVE DIAGNOSIS: Cataract Left Eye PROCEDURE: Cataract removal and placement of posterior chamber implant, left eye SURGEON: Ace Alberto ANESTHESIA: Topical with sedation COMPLICATIONS: None ESTIMATED BLOOD LOSS: Minimal DESCRIPTION OF PROCEDURE: After proper informed consent was obtained, the patient, a 72 female, was taken to the Operating Room and the left eye was anesthetized with tetracaine. The left eye was then prepped and draped in the usual manner. A wire lid speculum was placed. A paracentesis was made at the left hand position. Preservative free lidocaine was injected into the anterior chamber followed by viscoelastic. A clear corneal incision was made in the temporal position. A capsulorrhexis was preformed and the central nuclear and cortical material were removed. The posterior capsule was polished and an Lon 14.0 [id number] was placed into the capsular bag. The residual viscoelastic was aspirated and balanced saline solution was injected into the anterior chamber. Moxifloxacin was injected into the anterior chamber. The wound was checked and found to be water tight. The patient tolerated the procedure well without complications. ACE ALBERTO MD Sep 09, 2022 08:02
[2022-09-09 08:10] VITALS: BP 126/65
--- NOTE | 2022-09-09 13:38 | Anesthesia-General Post-Op ---
MAC Patient Condition Mental Status/LOC: Same as Preop Cardiovascular: Satisfactory Nausea/Vomiting: Absent Respiratory: Satisfactory Pain: Controlled Complications: Absent Post Op Complications Complications None Follow Up Care/Instructions Patient Instructions None needed. Anesthesiology Discharge Order Discharge Order Patient was doing well this morning after the procedure with no complaints, stable vital signs, no apparent adverse anesthesia problems. No complications reported per nursing. ROLY HEREDIA DO Sep 09, 2022 13:38
== END 2022-09-09 08:12 | disposition home or self-care (01) ==
LOC: SDC 06:33
PROVIDERS: ATTEND Specialist
DX: H25.9 Unspecified age-related cataract (principal); Z87.891 Personal history of nicotine dependence
CPT/HCPCS: 66984; V2632

== ENCOUNTER 2022-09-14 00:01 | Emergency (ER) | payer MEDICARE ==
[~2022-09-14] VITALS: Ht 165 cm; Wt 113.0 kg
[2022-09-14 00:10] VITALS: BP 142/63
[2022-09-14] MEDS ORDERED: DOCUSATE SODIUM 100 MG (COLACE) CAP PO ONE (00:15)
--- NOTE | 2022-09-14 00:19 | ED GI ---
General Chief Complaint: Abdominal/GI Problems Stated Complaint: CONSTIPATION Source of Information: Patient Exam Limitations: No Limitations History of Present Illness Date Seen by Provider: Sep 14, 2022 Time Seen by Provider: 00:09 Initial Comments 72-year-old female presents emergency department today for what she believes to be constipation. She states she had a small bowel movement earlier today but feels like she still needs to go more. She denies any abdominal pain. No nausea or vomiting. She had cataract surgery about a week ago and is not supposed to strain which is her biggest concern. Has tried use juice at home without much relief. She did have a normal bowel movement yesterday. All other systems reviewed and negative except documented per HPI. Voice recognition software was used to help create this chart Allergies and Home Medications Allergies Coded Allergies: prednisone (Verified Allergy, Intermediate, FLUSHED/REDNESS, 09/05/22) Penicillins (Verified Allergy, Mild, HIVES, 09/05/22) Sulfa (Sulfonamide Antibiotics) (Verified Allergy, Mild, RASH, 09/05/22) Patient Home Medication List Home Medication List Reviewed: Yes Apixaban (Eliquis) 5 Mg Tablet, 5 MG PO BID, (Reported) Entered as Reported by: ABENA CODY on 06/22/21913 Ascorbic Acid (Vitamin C) 500 Mg Tablet, 500 MG PO 1200, (Reported) Entered as Reported by: ABENA CODY on 06/22/21913 Cholecalciferol (Vitamin D3) (Vitamin D3) 50 Mcg Tablet, 50 MCG PO 1200, (Reported) Entered as Reported by: ABENA CODY on 06/22/21913 Diltiazem HCl (Diltiazem 24Hr ER) 180 Mg Cap.er.24h, 180 MG PO DAILY, (Reported) Entered as Reported by: ABENA CODY on 06/22/21913 Krill/Om-3/Dha/Epa/Phospho/Ast (Megared Valencia-3 Krill 750 mg) 1 Each Capsule, 1 EACH PO 1200, (Reported) Entered as Reported by: ABENA CODY on 06/22/21913 Levothyroxine Sodium (Synthroid) 112 Mcg Tablet, 112 MCG PO DAILY, (Reported) Entered as Reported by: ABENA CODY on 06/22/21913 Lisinopril (Lisinopril) 10 Mg Tablet, 10 MG PO DAILY, (Reported) Entered as Reported by: ABENA CODY on 06/22/21913 Metoprolol Succinate (Metoprolol Succinate) 50 Mg Tab.er.24h, 50 MG PO DAILY, (Reported) Entered as Reported by: ABENA CODY on 06/22/21913 Review of Systems Review of Systems Constitutional: see HPI Past Actjxik-Fcbewv-Linbbw Hx Patient Social History Tobacco Use?: No Use of E-Cig and/or Vaping dev: No Substance use?: No Alcohol Use?: No Immunizations Up To Date Tetanus Booster (TDap): Less than 5yrs First/Initial COVID19 Vaccinat: 09/2020 Second COVID19 Vaccination James: 10/2020 Third COVID19 Vaccination Date: N/A Seasonal Allergies Seasonal Allergies: No Past Medical History Surgeries: Yes (KNEE SCOPE, D&C AND HYSTEROSCOPY) Abdominal, Section, Ear Surgery, Gallbladder, Orthopedic, Thyroide ctomy, Tubal Ligation Respiratory: No Currently Using BIPAP: No Cardiac: Yes Atrial Fibrillation, Hypertension Neurological: No 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 History: Tubal Ligation, Menopausal Sexually Transmitted Disease: No HIV/AIDS: No Genitourinary: No UTI-Chronic Gastrointestinal: Yes Gastroesophageal Reflux, Diverticulosis, Chronic Diarrhea Musculoskeletal: Yes (BONE SPURS, CHRONIC KNEE PAIN/ARTHRITIS) Arthritis, Chronic Back Pain Endocrine: Yes (PARTIAL THYROIDECTOMY FOR GOITER) Hypothyroidsim HEENT: Yes (GLASSES) Chronic Ear Infection Loss of Vision: Bilateral Hearing Impairment: Deaf Cancer: No Psychosocial: No Integumentary: No Blood Disorders: No Adverse Reaction/Blood Tranf: No (N/A) Family Medical History Arthritis 19 MOTHER Cardiovascular disease 19 MOTHER Completed stroke 19 FATHER 19 MOTHER Diabetes mellitus 19 MOTHER G8 BROTHER Fibrocystic disease of breast G8 SISTER Respiratory disorder G8 BROTHER (Sleep Apnea) Physical Exam Vital Signs Capillary Refill : Height/Weight/BMI Height: 5'4.00" Weight: 265lbs. 2.0oz. 120.538151jv; 42.00 BMI Method:Stated General Appearance: WD/WN, no apparent distress HEENT: normal ENT inspection, pharynx normal Respiratory: chest non-tender, lungs clear, normal breath sounds, no respiratory distress Cardiovascular: regular rate, rhythm, no edema, no gallop, no murmur Gastrointestinal: normal bowel sounds, non tender, soft, no organomegaly Progress/Results/Core Measures Results/Orders My Orders Orders - SHERIF RUIZ DO Docusate Sodium Capsule (Colace Capsule) (09/14/22 00:15) Departure Communication (Admissions) Patient is hemodynamically stable. Abdomen is soft, nontender. She has no evidence for obstruction at this time. She did have a bowel movement earlier this evening, small and normal output yesterday. She is concerned about having to strain with a bowel movement because she feels like she needs to go but she cannot currently. Recommended Colace and MiraLAX initially, given first dose of p.o. Colace here. If that does not work I recommended she take a glycerin suppository at home. Lastly if she still continues to have issues I recommend mag citrate. Impression Primary Impression: Decreased frequency of bowel movements Disposition: HOME, SELF-CARE Condition: Stable Departure-Patient Inst. Referrals: SELF,MATTHIEU STRAUSS (PCP/Family) Primary Care Physician Add. Discharge Instructions: Get some Colace [id number] and use it as directed on the package insert. I also like you to use MiraLAX, 1 capful dissolved in liquid twice a day. If you do not have any improvement in 24 hours then use a glycerin suppository which you can also get [id number]. If you do not have any relief with that I recommend you get iboc-bkl-nxoewkc magnesium citrate and use that. Return to the emergency department for any severe concerns. Follow-up with your primary doctor for any nonemergent needs All discharge instructions reviewed with patient and/or family. Voiced understanding. SHERIF RUIZ DO Sep 14, 2022 00:19
== END 2022-09-14 00:53 | disposition home or self-care (01) ==
LOC: EDUNIT# 00:01 → ER 00:03
DX: R19.4 Change in bowel habit (principal)
CPT/HCPCS: 99281

== ENCOUNTER 2022-09-21 05:36 | Outpatient (CLI) | payer MEDICARE | END 2022-09-21 08:47 | disposition home or self-care (01) | LOC: PREOP 05:36 | PROVIDERS: ATTEND Specialist | DX: Z01.818 Encounter for other preprocedural examination (principal) ==

== ENCOUNTER 2022-09-30 06:26 | Day surgery (SDC) | payer MEDICARE ==
[~2022-09-30] VITALS: Ht 165 cm; Wt 113.0 kg
[2022-09-30] MEDS ORDERED: MOXIFLOXACIN OPHTH SOLN 5 MG/ML 0.3 ML SYRINGE OP ONE (06:30)
[2022-09-30] MEDS ORDERED: POVIDONE (BETADINE) OPHTH SOLN 5% 30 ML OP ONE (06:30)
[2022-09-30] MEDS ORDERED: TIMOLOL 0.5% (CATARACTS) 0.3 ML BTL OU PRN (06:30)
[2022-09-30] MEDS: TETRACAINE 0.5% OPHTH SOLN 4 ML BTL (SINGLE DOSE ONLY) OU PRN ×4 (06:38→07:00)
[2022-09-30 06:40] VITALS: BP 141/83
[2022-09-30] MEDS: TROPICAMIDE 1% OPH SOLN (MYDRIACYL) 15 ML BTL OP SCH ×3 (06:47→07:00)
[2022-09-30] MEDS: PHENYLEPHRINE 10% OPHTH (NEO-SYN) 5 ML BTL OU SCH ×3 (06:48→07:00)
[2022-09-30] MEDS ORDERED: MIDAZOLAM 2 MG/2 ML (VERSED) VIAL ONE (07:10)
--- NOTE | 2022-09-30 07:40 | Ophthalmologist Pre-Op Note ---
Pre-Operative Progress Note H&P Reviewed The H&P was reviewed, patient examined and no changes noted. Date H&P Reviewed: Sep 30, 2022 Time H&P Reviewed: 07:40 Pre-Op Dx Cataract, Right Eye CUBA ALBERTO MD Sep 30, 2022 07:40
[2022-09-30 08:00] VITALS: BP 141/83
--- NOTE | 2022-09-30 08:00 | Ophthalmology Operative Report ---
Cataract removal/placement IOL PREOPERATIVE DIAGNOSIS: Cataract Right Eye POSTOPERATIVE DIAGNOSIS: Cataract Right Eye PROCEDURE: Cataract removal and placement of posterior chamber implant, right eye SURGEON: Ace Alberto ANESTHESIA: Topical with sedation COMPLICATIONS: None ESTIMATED BLOOD LOSS: Minimal DESCRIPTION OF PROCEDURE: After proper informed consent was obtained, the patient, a 72 female, was taken to the Operating Room and the right eye was anesthetized with tetracaine. The right eye was then prepped and draped in the usual manner. A wire lid speculum was placed. A paracentesis was made at the left hand position. Preservative free lidocaine was injected into the anterior chamber followed by viscoelastic. A clear corneal incision was made in the temporal position. A capsulorrhexis was preformed and the central nuclear and cortical material were removed. The posterior capsule was polished and Lon 15.5 [id number] IOL was placed into the capsular bag. The residual viscoelastic was aspirated and balanced saline solution was injected into the anterior chamber. Moxifloxacin was injected into the anterior chamber. The wound was checked and found to be water tight. The patient tolerated the procedure well without complications. ACE ALBERTO MD Sep 30, 2022 08:00
--- NOTE | 2022-09-30 14:55 | Anesthesia-General Post-Op ---
MAC Patient Condition Mental Status/LOC: Same as Preop Cardiovascular: Satisfactory Nausea/Vomiting: Absent Respiratory: Satisfactory Pain: Controlled Complications: Absent Post Op Complications Complications None Follow Up Care/Instructions Patient Instructions None needed. Anesthesiology Discharge Order Discharge Order Patient was doing well after the procedure with no complaints, stable vital signs, no apparent adverse anesthesia problems. No complications reported per nursing. ROLY HEREDIA DO Sep 30, 2022 14:55
== END 2022-09-30 08:10 | disposition home or self-care (01) ==
LOC: SDC 06:26
PROVIDERS: ATTEND Specialist
DX: H25.9 Unspecified age-related cataract (principal); Z87.891 Personal history of nicotine dependence
CPT/HCPCS: 66984; V2632